=== PATIENT | female | born 1970 | race Caucasian/White ===

== ENCOUNTER 2016-07-17 06:38 | Emergency (ER) | payer MEDICARE ==
[2016-07-17] MEDS ORDERED: IPRATROPIUM-ALBUTEROL 3 ML NEB INHALATION STA (07:55)
[2016-07-17] MEDS ORDERED: SODIUM CHLORIDE 0.9% 1,000 ML IV STA (07:55)
[2016-07-17] MEDS ORDERED: SODIUM CHLORIDE 0.9% 500 ML IV STA (07:58)
--- NOTE | 2016-07-17 07:59 | ED ---
Fever HPI - General Chief Complaint: Fever Stated Complaint: fever Time Seen by Provider: 07/17/16 07:15 Source: patient, family, RN notes reviewed Mode of arrival: ambulatory Limitations: no limitations - History of Present Illness Initial Comments: This is a 46-year-old female with a history of being diagnosed with slight COPD and was currently being worked up for headaches with a pending evaluation of her carotid arteries at [facility] states she's had a cough with some congestion and fever over last week after his been as high as well 3 she had a cough with some slight yellow phlegm he also states she's had some left- sided rib pain. No overt abdominal pain nausea vomiting diarrhea she has had some rhinorrhea slight sore throat and some ear congestion. She also complains of intermittent headaches but that is part of what is being worked up at [facility]. She is a nonsmoker. Additionally her does not smoke but to their son's do smoke. Additionally her blood pressure has been somewhat elevated recently MD Complaint: fever, other - Related Data Home Medications Medication Instructions Recorded Confirmed HYDROcodone/APAP 7.5-325MG [[place] 1 tab PO QID PRN 04/18/14 07/17/16 7.5] Ondansetron HCl [Zofran] 4 mg PO Q8HR PRN 04/18/14 07/17/16 Ethosuximide [Zarontin] 250 mg PO BID 04/19/14 07/17/16 Cholecalciferol [Vitamin D3] 1,000 unit PO HS 10/14/14 07/17/16 Omeprazole 20 mg PO BID 12/14/15 07/17/16 Butalb/Acetaminophen/Caffeine 1 cap PO QID PRN 07/17/16 07/17/16 [Fioricet 50-300-40 mg Capsule] Ibuprofen [Motrin] 200 - 400 mg PO Q6H PRN 07/17/16 07/17/16 clonazePAM [KlonoPIN] 0.25 mg PO QAM 07/17/16 07/17/16 clonazePAM [KlonoPIN] 0.5 mg PO DAILY PRN 07/17/16 07/17/16 clonazePAM [KlonoPIN] 0.5 mg PO HS 07/17/16 07/17/16 diphenhydrAMINE HCL [Benadryl] 25 mg PO TID PRN 07/17/16 07/17/16 Previous Rx's Medication Instructions Recorded Nadolol [Corgard] 20 mg PO BID #60 tab 10/17/14 Azithromycin [Zithromax Z-pack] 250 mg PO DIRECTED #6 tab 07/17/16 Ipratropium/Albuterol Sulfate 2 puff INHALATION QID PRN #1 07/17/16 [Combivent Respimat Inhaler] inhaler Potassium Chloride ER [K-Dur 20] 20 meq PO DAILY #10 tab 07/17/16 Allergies Allergy/AdvReac Type Severity Reaction Status Date / Time amoxicillin [Amoxicillin] Allergy Unknown Verified 07/17/16 07:21 erythromycin base Allergy Unknown Verified 07/17/16 07:21 [Erythromycin Base] erythromycin lactobionate Allergy Unknown Verified 07/17/16 07:21 [From Erythrocin] Tetracyclines Allergy Unknown Verified 07/17/16 07:21 Review of Systems ROS Statement: Those systems with pertinent positive or pertinent negative responses have been documented in the HPI. ROS Other: All systems not noted in ROS Statement are negative. Past Medical History Past Medical History: CVA/TIA, Hypertension, Seizure Disorder Additional Past Medical History / Comment(s): Questionable history of mini strokes/TIA, frequent PVCs, gastritis and diverticulosis,small hiatal hernia, migraines, sinus problems, hx of siezures since age 8 yrs and last siezure was 3 weeks ago. History of Any Multi-Drug Resistant Organisms: None Reported Past Surgical History: Heart Catheterization, Hysterectomy Additional Past Surgical History / Comment(s): Pt had normal cardiac cath in 2011, upper and lower endoscopies Apr 2014 which showed diverticulosis and gastitis and small hiatal hernia Past Anesthesia/Blood Transfusion Reactions: Motion Sickness, Postoperative Nausea & Vomiting (PONV) Past Psychological History: No Psychological Hx Reported Additional Psychological History / Comment(s): Pt lives in her home with and 3 children. She currently uses crutches due to L foot fx and casting. she is mornally independent. Smoking Status: Never smoker Past Alcohol Use History: None Reported Past Drug Use History: None Reported - Past Family History Mother Family Medical History: Hypertension, Myocardial Infarction ([place]) Additional Family Medical History / Comment(s): Pt states she had two heart attacks, and is now Father Family Medical History: Unable to Obtain Additional Family Medical History / Comment(s): Pt did not know her father-she was raised by mother and stepfather. General Exam - General Exam Comments Initial Comments: This is a well-developed well-nourished awake alert oriented 3 female Limitations: no limitations General appearance: alert, in no apparent distress Head exam: Present: atraumatic, normocephalic, normal inspection Eye exam: Present: normal appearance, PERRL, EOMI. Absent: scleral icterus, conjunctival injection, periorbital swelling ENT exam: Present: mucous membranes dry, other (Suddenly dry oromucosa back memories appear to be within normal limits examine the nares reveals no drainage or discharge at this time.) Neck exam: Present: normal inspection. Absent: tenderness, meningismus, lymphadenopathy Respiratory exam: Present: wheezes, rhonchi (Left lower lobe rhonchi are noted.) , decreased breath sounds. Absent: chest wall tenderness Cardiovascular Exam: Present: regular rate, normal rhythm, normal heart sounds. Absent: systolic murmur, diastolic murmur, rubs, gallop, clicks GI/Abdominal exam: Present: soft, normal bowel sounds. Absent: distended, tenderness, guarding, rebound, rigid Extremities exam: Present: normal inspection, full ROM, normal capillary refill. Absent: tenderness, pedal edema, joint swelling, calf tenderness Back exam: Present: normal inspection Neurological exam: Present: alert, oriented X3, CN II-XII intact Psychiatric exam: Present: normal affect, normal mood Skin exam: Present: warm, dry, intact, normal color. Absent: rash Course Vital Signs 07/17/16 07/17/16 07/17/16 06:41 07:19 08:53 Temperature 98.6 F Pulse Rate 72 72 Respiratory 20 18 Rate Blood Pressure 168/105 O2 Sat by Pulse 97 Oximetry 07/17/16 07/17/16 09:05 09:50 Temperature 101.4 F H Pulse Rate 76 81 Respiratory 18 Rate Blood Pressure 148/78 O2 Sat by Pulse 97 Oximetry - Reevaluation(s) Reevaluation #1: 07/17/16 11:29 Of note I did a long discussion with the patient regarding ALLERGY she states she is not ALLERGIC to the medications listed however she was told to mention that she had a previous history of this she did have ALLERGY testing which showed no ALLERGIES. Medical Decision Making - Medical Decision Making I did reevaluate patient several occasions she was in improved and would like to go home. She'll be discharged on oral antibiotics as well as supplementation for potassium. She'll also get an inhaler she is a follow-up with her doctor and return when necessary - Lab Data Result diagrams: 07/17/16 08:45 07/17/16 08:45 Lab Results 07/17/16 07/17/16 07/17/16 Range/Units 08:45 08:45 08:45 WBC 6.0 (3.8-10.6) k/uL RBC 4.48 (3.80-5.40) m/uL Hgb 13.9 (11.4-16.0) gm/dL Hct 41.0 (34.0-46.0) % MCV 91.5 (80.0-100.0) fL MCH 31.1 (25.0-35.0) pg MCHC 34.0 (31.0-37.0) g/dL RDW 12.4 (11.5-15.5) % Plt Count 200 (150-450) k/uL Neutrophils % 83 % Lymphocytes % 11 % Monocytes % 3 % Eosinophils % 1 % Basophils % 0 % Neutrophils # 5.0 (1.3-7.7) k/uL Lymphocytes # 0.7 L (1.0-4.8) k/uL Monocytes # 0.2 (0-1.0) k/uL Eosinophils # 0.1 (0-0.7) k/uL Basophils # 0.0 (0-0.2) k/uL PT (9.0-12.0) sec INR (<1.1) APTT (22.0-30.0) sec Sodium 143 (137-145) mmol/L Potassium 3.1 L (3.5-5.1) mmol/L Chloride 102 (98-107) mmol/L Carbon Dioxide 29 (22-30) mmol/L Anion Gap 12 mmol/L BUN 6 L (7-17) mg/dL Creatinine 0.60 (0.52-1.04) mg/dL Est GFR (MDRD) Af Amer >60 (>60 ml/min/1.73 sqM) Est GFR (MDRD) Non-Af >60 (>60 ml/min/1.73 sqM) Glucose 89 (74-99) mg/dL Calcium 9.1 (8.4-10.2) mg/dL Magnesium 2.0 (1.6-2.3) mg/dL Total Bilirubin 0.4 (0.2-1.3) mg/dL AST 73 H (14-36) U/L ALT 73 H (9-52) U/L Alkaline Phosphatase 141 H (38-126) U/L Total Creatine Kinase (30-135) U/L CK-MB (CK-2) (0.0-2.4) ng/mL CK-MB (CK-2) Rel Index Troponin I (0.000-0.034) ng/mL NT-Pro-B Natriuret Pep 586 pg/mL Total Protein 7.1 (6.3-8.2) g/dL Albumin 4.2 (3.5-5.0) g/dL 07/17/16 07/17/16 07/17/16 Range/Units 08:45 08:45 08:45 WBC (3.8-10.6) k/uL RBC (3.80-5.40) m/uL Hgb (11.4-16.0) gm/dL Hct (34.0-46.0) % MCV (80.0-100.0) fL MCH (25.0-35.0) pg MCHC (31.0-37.0) g/dL RDW (11.5-15.5) % Plt Count (150-450) k/uL Neutrophils % % Lymphocytes % % Monocytes % % Eosinophils % % Basophils % % Neutrophils # (1.3-7.7) k/uL Lymphocytes # (1.0-4.8) k/uL Monocytes # (0-1.0) k/uL Eosinophils # (0-0.7) k/uL Basophils # (0-0.2) k/uL PT 10.3 (9.0-12.0) sec INR 1.0 (<1.1) APTT 24.1 (22.0-30.0) sec Sodium (137-145) mmol/L Potassium (3.5-5.1) mmol/L Chloride (98-107) mmol/L Carbon Dioxide (22-30) mmol/L Anion Gap mmol/L BUN (7-17) mg/dL Creatinine (0.52-1.04) mg/dL Est GFR (MDRD) Af Amer (>60 ml/min/1.73 sqM) Est GFR (MDRD) Non-Af (>60 ml/min/1.73 sqM) Glucose (74-99) mg/dL Calcium (8.4-10.2) mg/dL Magnesium (1.6-2.3) mg/dL Total Bilirubin (0.2-1.3) mg/dL AST (14-36) U/L ALT (9-52) U/L Alkaline Phosphatase (38-126) U/L Total Creatine Kinase 45 (30-135) U/L CK-MB (CK-2) 0.4 (0.0-2.4) ng/mL CK-MB (CK-2) Rel Index 0.9 Troponin I <0.012 (0.000-0.034) ng/mL NT-Pro-B Natriuret Pep pg/mL Total Protein (6.3-8.2) g/dL Albumin (3.5-5.0) g/dL - EKG Data -: EKG Interpreted by Sd EKG shows normal: sinus rhythm (Sinus rhythm with a short ID interval the ventricular rate was 69. Interval 110 QRS duration 82 QT/QTC of 14/[address] -T wave changes.) - Radiology Data Radiology results: report reviewed (Review the imaging did show evidence of a left lower lobe infiltrate.), image reviewed Disposition Clinical Impression: Left lower lobe pneumonia, Bronchospasm, Hypokalemia, Febrile illness Disposition: HOME SELF-CARE Condition: Good Instructions: Fever in Adults (ED), Pneumonia (ED), Bronchospasm (ED), Hypokalemia (ED) Prescriptions: Azithromycin [Zithromax Z-pack] 250 mg PO DIRECTED #6 tab Ipratropium/Albuterol Sulfate [Combivent Respimat Inhaler] 2 puff INHALATION QID PRN #1 inhaler PRN Reason: Dyspnea Potassium Chloride ER [K-Dur 20] 20 meq PO DAILY #10 tab
[2016-07-17 09:09] LABS: Basophils % (A) 0 %; CH 32.1; CHCM 35.2; Eosinophils # (A) 0.1 k/uL (0-0.7); Eosinophils % (A) 1 %; HDW 2.67; HGB 13.9 gm/dL (11.4-16.0); Luc % (Auto) 2; Lymphocytes # (A) 0.7 k/uL (1.0-4.8); Lymphocytes % (A) 11 %; MCH 31.1 pg (25.0-35.0); MCV 91.5 fL (80.0-100.0); Monocytes # (A) 0.2 k/uL (0-1.0); Monocytes % (A) 3 %; Neutrophils % (A) 83 %; RBC 4.48 m/uL (3.80-5.40); RDW 12.4 % (11.5-15.5); WBC (Perox) 6.27
[2016-07-17 09:19] LABS: ALT 73 U/L (9-52); AST 73 U/L (14-36); Alkaline Phosphatase 141 U/L (38-126); Anion Gap 12 mmol/L; Blood Urea Nitrogen 6 mg/dL (7-17); Calcium 9.1 mg/dL (8.4-10.2); Carbon Dioxide 29 mmol/L (22-30); Chloride 102 mmol/L (98-107); Glucose 89 mg/dL (74-99); Non-African American GFR(MDRD) >60 (>60 ml/min/1.73 sqM); Potassium 3.1 mmol/L (3.5-5.1); Sodium 143 mmol/L (137-145); Total Bilirubin 0.4 mg/dL (0.2-1.3); Total Protein 7.1 g/dL (6.3-8.2)
[2016-07-17 09:23] LABS: Partial Thromboplastin Time 24.1 sec (22.0-30.0); Prothrombin Time 10.3 sec (9.0-12.0)
--- NOTE | 2016-07-17 09:43 | XR ---
EXAMINATION TYPE: XR chest 2V DATE OF EXAM: 07/17/2016 9:32 AM COMPARISON: Prior chest x-ray first of October 2014 HISTORY: Difficulty breathing, upper respiratory difficulties TECHNIQUE: Frontal and lateral views of the chest are obtained. FINDINGS: Abnormal airspace disease present in the left lower lobe. No pneumothorax or pleural effus ion. Cardiac and mediastinal silhouette, pulmonary vascularity and nilesh are within normal limits. IMPRESSION: Left lower lobe pneumonia, follow up recommended.
[2016-07-17 10:15] LABS: Creatine Kinase MB 0.4 ng/mL (0.0-2.4)
[2016-07-17] MEDS ORDERED: KETOROLAC 30 MG/ML 1 ML VIAL IVP STA (10:40)
[2016-07-17] MEDS ORDERED: AZITHROMYCIN 500 MG TAB PO STA (10:40)
[2016-07-17] MEDS ORDERED: POTASSIUM CHLORIDE ER 20 MEQ TAB.ER PO STA (10:41)
[2016-07-17] MEDS ORDERED: ACETAMINOPHEN TAB 500 MG TAB PO STA (11:33)
[2016-07-17 11:48] VITALS: BP 146/86; PULSE 75; RESP 16; TEMP 102
== END 2016-07-17 11:48 | disposition home or self-care (01) ==
LOC: EC 06:38
DX: J18.9 Pneumonia, unspecified organism (principal); J98.01 Acute bronchospasm; E87.6 Hypokalemia; R51 Headache; I10 Essential (primary) hypertension; G40.909 Epilepsy, unspecified, not intractable, without status epilepticus; Z88.0 Allergy status to penicillin; Z88.1 Allergy status to other antibiotic agents; Z86.73 Personal history of transient ischemic attack (TIA), and cerebral infarction without residual deficits; Z98.61 Coronary angioplasty status; Z79.899 Other long term (current) drug therapy
CPT/HCPCS: 99284; 96365; 96375; 96361 ×2; 36415; 94640; 93005; 83880; 80053; 82550; 82553; 83735; 84484; 85025; 85610; 85730; 87040; 71020; J0696; J1885

== ENCOUNTER 2017-03-01 11:36 | Emergency (ER) | payer MEDICARE ==
[2017-03-01] MEDS ORDERED: HYDROmorphone 1 MG/ML 1 ML SYRINGE IM STA (12:01)
--- NOTE | 2017-03-01 12:18 | XR ---
EXAMINATION TYPE: PA chest and right rib series DATE OF EXAM: 03/01/2017 COMPARISON: 07/17/2016 HISTORY: 46-year-old female with right rib pain after fall FINDINGS: Heart is normal size. Aorta and pulmonary vasculature within normal limits. Lungs and pleural spaces are clear. No displaced right rib fracture. IMPRESSION: No acute cardiopulmonary process or displaced right rib fracture.
--- NOTE | 2017-03-01 12:21 | ED ---
General Adult HPI - General Chief complaint: Fall Stated complaint: fall down stairs Time Seen by Provider: 03/01/17 11:53 Source: patient, RN notes reviewed Mode of arrival: ambulatory Limitations: no limitations - History of Present Illness Initial comments: 46-year-old female presents to the emergency department presents with chief complaint of right-sided rib pain. Patient states that she fell on the stairs about 4 stairs few nights ago after being sick with nausea vomiting she felt a little weak and she filled on the stairs. Patient states that she was doing okay she's had some soreness to the right side of the ribs however today after pain onset yesterday she's noticed some increased pain and right-sided rib so she thought that she should be seen. Patient denies any abdominal pain any nausea or vomiting. Patient states did not hit her head she did not pass out during this period. Patient denies any recent fever, chills, shortness of breath , back pain, abdominal pain, nausea vomiting, numbness or tingling, dysuria or hematuria, constipation or diarrhea, headaches or visual changes, or any other current symptoms. - Related Data Home Medications Medication Instructions Recorded Confirmed HYDROcodone/APAP 7.5-325MG [[place] 1 tab PO QID PRN 04/18/14 07/17/16 7.5] Ondansetron HCl [Zofran] 4 mg PO Q8HR PRN 04/18/14 07/17/16 Ethosuximide [Zarontin] 250 mg PO BID 04/19/14 07/17/16 Cholecalciferol [Vitamin D3] 1,000 unit PO HS 10/14/14 07/17/16 Omeprazole 20 mg PO BID 12/14/15 07/17/16 Butalb/Acetaminophen/Caffeine 1 cap PO QID PRN 07/17/16 07/17/16 [Fioricet 50-300-40 mg Capsule] Ibuprofen [Motrin] 200 - 400 mg PO Q6H PRN 07/17/16 07/17/16 clonazePAM [KlonoPIN] 0.25 mg PO QAM 07/17/16 07/17/16 clonazePAM [KlonoPIN] 0.5 mg PO DAILY PRN 07/17/16 07/17/16 clonazePAM [KlonoPIN] 0.5 mg PO HS 07/17/16 07/17/16 diphenhydrAMINE HCL [Benadryl] 25 mg PO TID PRN 07/17/16 07/17/16 Previous Rx's Medication Instructions Recorded Nadolol [Corgard] 20 mg PO BID #60 tab 10/17/14 Azithromycin [Zithromax Z-pack] 250 mg PO DIRECTED #6 tab 07/17/16 Ipratropium/Albuterol Sulfate 2 puff INHALATION QID PRN #1 07/17/16 [Combivent Respimat Inhaler] inhaler Potassium Chloride ER [K-Dur 20] 20 meq PO DAILY #10 tab 07/17/16 Allergies Allergy/AdvReac Type Severity Reaction Status Date / Time amoxicillin [Amoxicillin] Allergy Unknown Verified 03/01/17 11:45 erythromycin base Allergy Unknown Verified 03/01/17 11:45 [Erythromycin Base] erythromycin lactobionate Allergy Unknown Verified 03/01/17 11:45 [From Erythrocin] Tetracyclines Allergy Unknown Verified 03/01/17 11:45 Review of Systems ROS Statement: Those systems with pertinent positive or pertinent negative responses have been documented in the HPI. ROS Other: All systems not noted in ROS Statement are negative. Past Medical History Past Medical History: CVA/TIA, Hypertension, Seizure Disorder Additional Past Medical History / Comment(s): Questionable history of mini strokes/TIA, frequent PVCs, gastritis and diverticulosis,small hiatal hernia, migraines, sinus problems, hx of siezures since age 8 yrs and last siezure was 3 weeks ago. History of Any Multi-Drug Resistant Organisms: None Reported Past Surgical History: Heart Catheterization, Hysterectomy Additional Past Surgical History / Comment(s): Pt had normal cardiac cath in 2011, upper and lower endoscopies Apr 2014 which showed diverticulosis and gastitis and small hiatal hernia Past Anesthesia/Blood Transfusion Reactions: Motion Sickness, Postoperative Nausea & Vomiting (PONV) Past Psychological History: No Psychological Hx Reported Smoking Status: Never smoker Past Alcohol Use History: None Reported Past Drug Use History: None Reported - Past Family History Mother Family Medical History: Hypertension, Myocardial Infarction ([place]) Additional Family Medical History / Comment(s): Pt states she had two heart attacks, and is now Father Family Medical History: Unable to Obtain Additional Family Medical History / Comment(s): Pt did not know her father-she was raised by mother and stepfather. General Exam Limitations: no limitations General appearance: alert, in no apparent distress Head exam: Present: atraumatic, normocephalic, normal inspection Eye exam: Present: normal appearance, PERRL, EOMI. Absent: scleral icterus, conjunctival injection, periorbital swelling ENT exam: Present: normal exam, mucous membranes moist Neck exam: Present: normal inspection. Absent: tenderness, meningismus, lymphadenopathy Respiratory exam: Present: normal lung sounds bilaterally, chest wall tenderness (over the right lower rib cage to the back.). Absent: respiratory distress, wheezes, rales, rhonchi, stridor Cardiovascular Exam: Present: regular rate, normal rhythm, normal heart sounds. Absent: systolic murmur, diastolic murmur, rubs, gallop, clicks Extremities exam: Present: normal inspection, full ROM, normal capillary refill. Absent: tenderness, pedal edema, joint swelling, calf tenderness Back exam: Present: normal inspection Neurological exam: Present: alert, oriented X3 Psychiatric exam: Present: normal affect, normal mood Skin exam: Present: warm, dry, intact, normal color. Absent: rash Course Vital Signs 03/01/17 03/01/17 11:42 12:26 Temperature 99.9 F H 99 F Pulse Rate 70 63 Respiratory 20 18 Rate Blood Pressure 173/105 159/96 O2 Sat by Pulse 100 96 Oximetry Medical Decision Making - Medical Decision Making 46-year-old female presents to the emergency department with a chief complaint of right-sided rib pain after a fall. xray is reviewed and negative. At this time we did discuss that most likely from the fall she developed a rib contusion and then yesterday but she was pain her house she worsens it. We discussed care of this. We did discuss return parameters and follow-up. We did discussed all the patient's questions. He stated the Alli they are given plan. This time they will be discharged - Radiology Data Radiology results: report reviewed, image reviewed Disposition Clinical Impression: Contusion of rib on right side Disposition: HOME SELF-CARE Condition: Stable Instructions: Rib Contusion (ED) Additional Instructions: Please use medication as discussed. Please follow up with family doctor if symptoms have not improved over the next two days. Please return to the emergency room if your symptoms increase or worsen or for any other concerns. Referrals: Young Palmer MD [Primary Care Provider] - 1-2 days Time of Disposition: 12:39
[2017-03-01 12:27] VITALS: BP 159/96; PULSE 63; RESP 18; TEMP 99
== END 2017-03-01 12:50 | disposition home or self-care (01) ==
LOC: EC 11:36
DX: S20.211A Contusion of right front wall of thorax, initial encounter (principal); R11.2 Nausea with vomiting, unspecified; I10 Essential (primary) hypertension; G40.909 Epilepsy, unspecified, not intractable, without status epilepticus; Z86.73 Personal history of transient ischemic attack (TIA), and cerebral infarction without residual deficits; Z79.899 Other long term (current) drug therapy; Z88.1 Allergy status to other antibiotic agents; Z88.0 Allergy status to penicillin; W10.9XXA Fall (on) (from) unspecified stairs and steps, initial encounter
CPT/HCPCS: 71101; 99283; 96372; J1170

== ENCOUNTER 2017-08-16 10:54 | Emergency (ER) | payer MEDICARE, OTHER ==
[2017-08-16] MEDS ORDERED: KETOROLAC 30 MG/ML 1 ML VIAL IVP STA (11:30)
--- NOTE | 2017-08-16 11:36 | ED ---
General Adult HPI - General Chief complaint: Upper Respiratory Infection Stated complaint: Cough/SOB Time Seen by Provider: 08/16/17 11:20 Source: patient, family Mode of arrival: wheelchair Limitations: no limitations - History of Present Illness Initial comments: This is a 47 year old female who presents emergency department for right sided flank pain that radiates around to the right anterior chest. She states it started 3 or 4 days ago but is gradually worsened. She states that she has been coughing with this. She states that she has a history of pneumonia and feels similar. She states that she also has been having difficulty with eating recently that she attributes to a recent medication change. She states that she 's also had a couple episodes of syncope which is also typical for her when she is been sick. She's been around multiple sick contacts including a grand child. She denies any fevers or chills at home. No upper respiratory symptoms. She does state that she's had a couple episodes of emesis after coughing. No diarrhea. No abdominal pain. No other complaints. - Related Data Home Medications Medication Instructions Recorded Confirmed HYDROcodone/APAP 7.5-325MG [[place] 1 tab PO Q6H PRN 04/18/14 08/16/17 7.5] Ethosuximide [Zarontin] 250 mg PO TID 04/19/14 08/16/17 Cholecalciferol [Vitamin D3] 1,000 unit PO HS 10/14/14 08/16/17 Omeprazole 20 mg PO DAILY 12/14/15 08/16/17 Butalb/Acetaminophen/Caffeine 1 cap PO Q4H PRN 07/17/16 08/16/17 [Fioricet 50-300-40 mg Capsule] Ibuprofen [Motrin] 200 - 400 mg PO Q6H PRN 07/17/16 08/16/17 clonazePAM [KlonoPIN] 0.5 mg PO BID 07/17/16 08/16/17 diphenhydrAMINE HCL [Benadryl] 25 mg PO TID PRN 07/17/16 08/16/17 Ipratropium/Albuterol Sulfate 2 puff INHALATION RT-QID PRN 03/01/17 08/16/17 [Combivent Respimat Inhaler] Labetalol [Trandate] 100 mg PO BID 08/16/17 08/16/17 Previous Rx's Medication Instructions Recorded Methocarbamol [Robaxin] 1,000 mg PO QID PRN #16 tab 08/16/17 Naproxen [EC-Naprosyn] 500 mg PO BID #30 tablet. 08/16/17 Allergies Allergy/AdvReac Type Severity Reaction Status Date / Time amoxicillin [Amoxicillin] Allergy Rash/Hives Verified 08/16/17 12:00 erythromycin base Allergy Rash/Hives Verified 08/16/17 12:00 [Erythromycin Base] erythromycin lactobionate Allergy Rash/Hives Verified 08/16/17 12:00 [From Erythrocin] Tetracyclines Allergy Rash/Hives Verified 08/16/17 12:00 Review of Systems ROS Statement: Those systems with pertinent positive or pertinent negative responses have been documented in the HPI. ROS Other: All systems not noted in ROS Statement are negative. Past Medical History Past Medical History: CVA/TIA, Hypertension, Pneumonia, Seizure Disorder Additional Past Medical History / Comment(s): Questionable history of mini strokes/TIA, frequent PVCs, gastritis and diverticulosis,small hiatal hernia, migraines, sinus problems, hx of siezures since age 8 yrs and last siezure was 3 weeks ago. History of Any Multi-Drug Resistant Organisms: None Reported Past Surgical History: Heart Catheterization, Hysterectomy Additional Past Surgical History / Comment(s): Pt had normal cardiac cath in 2011, upper and lower endoscopies Apr 2014 which showed diverticulosis and gastitis and small hiatal hernia Past Anesthesia/Blood Transfusion Reactions: Motion Sickness, Postoperative Nausea & Vomiting (PONV) Past Psychological History: No Psychological Hx Reported Smoking Status: Never smoker Past Alcohol Use History: None Reported Past Drug Use History: None Reported - Past Family History Mother Family Medical History: Hypertension, Myocardial Infarction ([place]) Additional Family Medical History / Comment(s): Pt states she had two heart attacks, and is now Father Family Medical History: Unable to Obtain Additional Family Medical History / Comment(s): Pt did not know her father-she was raised by mother and stepfather. General Exam - General Exam Comments Initial Comments: Constitutional: Awake alert Appears comfortable Head: Normocephalic atraumatic Eyes: no conjunctival injection No scleral icterus EOMI ENT: Oropharynx is nonerythematous, TMs clear bilaterally, no rhinorrhea Neck: No JVD Supple Heart: Regular rate rhythm normal S1-S2 no murmurs Lungs: Clear to auscultation bilaterally No wheezing No rales, tenderness to palpation along the right lateral lower ribs Abdomen: Soft nondistended nontender Extremities: Non edematous DP pulses intact Radial pulses intact Neuro: A&Ox3 No focal neurologic deficits Psych: Appropriate mood and affect Limitations: no limitations Course Vital Signs 08/16/17 08/16/17 11:04 11:58 Temperature 98.7 F Pulse Rate 79 Respiratory 18 16 Rate Blood Pressure 175/97 O2 Sat by Pulse 100 Oximetry EKG Findings - EKG Comments: EKG Findings:: EKG showing normal sinus rhythm. 624. No abnormal ST segment changes. There are T-wave inversions in the lateral leads and inferior leads which are unchanged from previous. QTC is 429. Other intervals are normal. Medical Decision Making - Medical Decision Making Is a 47-year-old female who presents emergency department for right-sided chest wall pain. The patient was improved after some Toradol. Chest x-ray did not reveal any pneumonia. Labwork was unremarkable. EKG was unchanged from previous. This time I feel the patient is okay to go home. Told to take Naprosyn and muscle relaxants per she can use numbing patches if she would like. Told to return emergency Department should her like fever, worsening pain , cough productive of sputum. Otherwise she needs to follow-up the primary doctor. All questions were answered. - Lab Data Result diagrams: 08/16/17 12:08/16/17 12: Lab Results 08/16/17 08/16/17 08/16/17 Range/Units 12: 12: 12: WBC 3.4 L (3.8-10.6) k/uL RBC 4.11 (3.80-5.40) m/uL Hgb 12.8 (11.4-16.0) gm/dL Hct 37.9 (34.0-46.0) % MCV 92.2 (80.0-100.0) fL MCH 31.1 (25.0-35.0) pg MCHC 33.7 (31.0-37.0) g/dL RDW 12.8 (11.5-15.5) % Plt Count 209 (150-450) k/uL Neutrophils % 45 % Lymphocytes % 45 % Monocytes % 5 % Eosinophils % 3 % Basophils % 1 % Neutrophils # 1.5 (1.3-7.7) k/uL Lymphocytes # 1.5 (1.0-4.8) k/uL Monocytes # 0.2 (0-1.0) k/uL Eosinophils # 0.1 (0-0.7) k/uL Basophils # 0.0 (0-0.2) k/uL Sodium 141 (137-145) mmol/L Potassium 3.5 (3.5-5.1) mmol/L Chloride 105 (98-107) mmol/L Carbon Dioxide 24 (22-30) mmol/L Anion Gap 12 mmol/L BUN 7 (7-17) mg/dL Creatinine 0.62 (0.52-1.04) mg/dL Est GFR (MDRD) Af Amer >60 (>60 ml/min/1.73 sqM) Est GFR (MDRD) Non-Af >60 (>60 ml/min/1.73 sqM) Glucose 91 (74-99) mg/dL Calcium 9.8 (8.4-10.2) mg/dL Total Bilirubin 0.3 (0.2-1.3) mg/dL AST 15 (14-36) U/L ALT 18 (9-52) U/L Alkaline Phosphatase 61 (38-126) U/L Total Protein 7.3 (6.3-8.2) g/dL Albumin 4.5 (3.5-5.0) g/dL Urine HCG, Qual Not Detected (Not Detectd) Disposition Clinical Impression: Chest wall pain Disposition: HOME SELF-CARE Condition: Stable Instructions: Costochondritis (ED) Prescriptions: Methocarbamol [Robaxin] 1,000 mg PO QID PRN #16 tab PRN Reason: Muscle Pain/Spasm Naproxen [EC-Naprosyn] 500 mg PO BID #30 tablet.dr Referrals: Young Palmer MD [Primary Care Provider] - 1-2 days
[2017-08-16 12:25] LABS: Basophils % (A) 1 %; Eosinophils # (A) 0.1 k/uL (0-0.7); Eosinophils % (A) 3 %; HCT 37.9 % (34.0-46.0); HGB 12.8 gm/dL (11.4-16.0); Lymphocytes # (A) 1.5 k/uL (1.0-4.8); Lymphocytes % (A) 45 %; MCH 31.1 pg (25.0-35.0); MCHC 33.7 g/dL (31.0-37.0); MCV 92.2 fL (80.0-100.0); Mean Platelet Volume 7.7; Monocytes # (A) 0.2 k/uL (0-1.0); Monocytes % (A) 5 %; Neutrophils # (A) 1.5 k/uL (1.3-7.7); Neutrophils % (A) 45 %; Platelet Count 209 k/uL (150-450); RBC 4.11 m/uL (3.80-5.40); RDW 12.8 % (11.5-15.5); WBC 3.4 k/uL (3.8-10.6)
--- NOTE | 2017-08-16 12:25 | XR ---
EXAMINATION TYPE: XR chest 2V DATE OF EXAM: 08/16/2017 COMPARISON: 05/10/2017 HISTORY: 47-year-old female with pain TECHNIQUE: AP and lateral views FINDINGS: The cardiomediastinal silhouette, aorta, and pulmonary vasculature are within normal limits. Lungs an d pleural spaces are clear. IMPRESSION: No acute cardiopulmonary process.
[2017-08-16 12:32] LABS: ALT 18 U/L (9-52); AST 15 U/L (14-36); Albumin 4.5 g/dL (3.5-5.0); Alkaline Phosphatase 61 U/L (38-126); Anion Gap 12 mmol/L; Blood Urea Nitrogen 7 mg/dL (7-17); Calcium 9.8 mg/dL (8.4-10.2); Carbon Dioxide 24 mmol/L (22-30); Chloride 105 mmol/L (98-107); Glucose 91 mg/dL (74-99); Potassium 3.5 mmol/L (3.5-5.1); Sodium 141 mmol/L (137-145); Total Bilirubin 0.3 mg/dL (0.2-1.3); Total Protein 7.3 g/dL (6.3-8.2)
[2017-08-16 13:04] VITALS: BP 171/69; PULSE 78; RESP 18; TEMP 97.8
== END 2017-08-16 13:04 | disposition home or self-care (01) ==
LOC: EC 10:54
DX: R07.89 Other chest pain (principal); R10.9 Unspecified abdominal pain; R05 Cough; R55 Syncope and collapse; R11.10 Vomiting, unspecified; I10 Essential (primary) hypertension; G40.909 Epilepsy, unspecified, not intractable, without status epilepticus; Z79.899 Other long term (current) drug therapy; Z88.0 Allergy status to penicillin; Z88.1 Allergy status to other antibiotic agents; Z87.19 Personal history of other diseases of the digestive system; Z95.9 Presence of cardiac and vascular implant and graft, unspecified; Z82.49 Family history of ischemic heart disease and other diseases of the circulatory system; Z20.89 Contact with and (suspected) exposure to other communicable diseases
CPT/HCPCS: 36415; 93005; 80053; 85025; 81025; 71046; 99284; 96374; J1885

== ENCOUNTER 2017-09-20 12:31 | Emergency (ER) | payer MEDICARE, OTHER ==
[2017-09-20] MEDS ORDERED: SODIUM CHLORIDE 0.9% 500 ML IV STA (12:49)
[2017-09-20] MEDS ORDERED: SODIUM CHLORIDE 0.9% 1,000 ML IV STA (12:49)
[2017-09-20] MEDS ORDERED: METOCLOPRAMIDE 5 MG/ML 2 ML VIAL IVP STA (12:51)
[2017-09-20] MEDS ORDERED: LABETALOL 5 MG/ML VIAL MDV IVP STA (12:51)
[2017-09-20] MEDS ORDERED: KETOROLAC 30 MG/ML 1 ML VIAL IVP STA (12:51)
[2017-09-20] MEDS ORDERED: DEXAMETHASONE SOD PHOSPHATE 10 MG/ML 1 ML VIAL IV STA (12:51)
--- NOTE | 2017-09-20 12:56 | ED ---
General Adult HPI - General Chief complaint: Head Injury Stated complaint: Headache from seizure Time Seen by Provider: 09/20/17 12:42 Source: patient Mode of arrival: wheelchair Limitations: no limitations - History of Present Illness Initial comments: This 47-year-old white female presents with a complaint of a head injury. She states that she had a seizure exactly one month ago, fell, and hit her left occipital region. She states that she has had a continuous headache and her left occipital region ever since. She has had some nausea and vomiting. She's felt dizzy at times as well. His symptoms have been fairly persistent over the last month. She did not follow up with anybody until now as they were having insurance difficulties. She also complains of occasional shortness of breath and states that her blood pressures been out of control. She normally runs approximately 135/95 but recently has been running approximately 190 systolic. She does take blood pressure medication and states that she'll sometimes double up on her dose per her doctor's recommendations and this will usually help. She denies any other injuries. She does relate that the pain seems to radiate down into her neck at times. She has no other complaints or modifying factors. - Related Data Home Medications Medication Instructions Recorded Confirmed HYDROcodone/APAP 7.5-325MG [[place] 1 tab PO Q6H PRN 04/18/14 09/20/17 7.5] Ethosuximide [Zarontin] 250 mg PO BID 04/19/14 09/20/17 Omeprazole 20 mg PO AC-BID 12/14/15 09/20/17 Butalb/Acetaminophen/Caffeine 1 cap PO QID PRN 07/17/16 09/20/17 [Fioricet 50-300-40 mg Capsule] Ibuprofen [Motrin] 200 - 400 mg PO Q6H PRN 07/17/16 09/20/17 clonazePAM [KlonoPIN] 0.5 mg PO BID 07/17/16 09/20/17 diphenhydrAMINE HCL [Benadryl] 25 mg PO TID PRN 07/17/16 09/20/17 Nadolol [Corgard] 20 mg PO DAILY 09/20/17 09/20/17 Ondansetron HCl [Zofran] 4 mg PO Q8H PRN 09/20/17 09/20/17 Previous Rx's Medication Instructions Recorded Meclizine [Antivert] 25 mg PO TID PRN #20 tab 09/20/17 Nadolol [Corgard] 40 mg PO BID #60 tab 09/20/17 Allergies Allergy/AdvReac Type Severity Reaction Status Date / Time amoxicillin [Amoxicillin] Allergy Rash/Hives Verified 09/20/17 14:50 erythromycin base Allergy Rash/Hives Verified 09/20/17 14:50 [Erythromycin Base] erythromycin lactobionate Allergy Rash/Hives Verified 09/20/17 14:50 [From Erythrocin] Tetracyclines Allergy Rash/Hives Verified 09/20/17 14:50 Review of Systems ROS Statement: Those systems with pertinent positive or pertinent negative responses have been documented in the HPI. ROS Other: All systems not noted in ROS Statement are negative. Past Medical History Past Medical History: CVA/TIA, Hypertension, Pneumonia, Seizure Disorder Additional Past Medical History / Comment(s): Questionable history of mini strokes/TIA, frequent PVCs, gastritis and diverticulosis,small hiatal hernia, migraines, sinus problems, hx of siezures since age 8 yrs and last siezure was 3 weeks ago. History of Any Multi-Drug Resistant Organisms: None Reported Past Surgical History: Heart Catheterization, Hysterectomy Additional Past Surgical History / Comment(s): Pt had normal cardiac cath in 2011, upper and lower endoscopies Apr 2014 which showed diverticulosis and gastitis and small hiatal hernia Past Anesthesia/Blood Transfusion Reactions: Motion Sickness, Postoperative Nausea & Vomiting (PONV) Past Psychological History: No Psychological Hx Reported Smoking Status: Never smoker Past Alcohol Use History: None Reported Past Drug Use History: None Reported - Past Family History Mother Family Medical History: Hypertension, Myocardial Infarction ([place]) Additional Family Medical History / Comment(s): Pt states she had two heart attacks, and is now Father Family Medical History: Unable to Obtain Additional Family Medical History / Comment(s): Pt did not know her father-she was raised by mother and stepfather. General Exam - General Exam Comments Initial Comments: GENERAL: The patient is well nourished and well hydrated. VITAL SIGNS: Heart rate, blood pressure, respiratory rate reviewed as recorded in nurse's notes. EYES: Pupils are round and reactive. Extraocular movements are intact. No conjunctival / lid redness or swelling. ENT: No external evidence of injury, swelling, or ecchymosis. Airway is patent. Throat is clear. There is some slight tenderness noted to the left occipital region. NECK: Nontender. No swelling or evidence of injury. No subcutaneous emphysema. Trachea is midline. No thyroid mass. HEART: Regular rate and rhythm. Good peripheral pulses. LUNGS/CHEST: Breath sounds clear and equal bilaterally. No rales, rhonchi, or wheezes. No ecchymosis, subcutaneous emphysema, or tenderness. ABDOMEN: Abdomen soft without tenderness. No palpable masses or organomegaly. No peritoneal signs. No abdominal wall swelling or ecchymosis. EXTREMITIES: No extremity tenderness. Normal muscle tone and function. No thoracolumbar tenderness. NEUROLOGIC: Sensation is grossly intact. Cranial nerve exam reveals face is symmetrical, tongue is midline, speech is clear. SKIN: No abrasions or ecchymosis is noted. No induration or masses noted. PSYCHIATRIC: Alert and oriented. Appropriate behavior and judgment. Limitations: no limitations Course Vital Signs 09/20/17 09/20/17 09/20/17 12:37 13:23 14:29 Temperature 97.9 F Pulse Rate 71 69 63 Respiratory 18 18 16 Rate Blood Pressure 198/117 180/11 150/88 O2 Sat by Pulse 100 96 96 Oximetry Medical Decision Making - Medical Decision Making The patient is seen and examined. All diagnostics are reviewed. An IV is established and she does receive 20 mg of labetalol intravenously. She also receives some Toradol, dexamethasone, and Reglan for the headache. The EKG shows a normal sinus rhythm at a rate of 70. There is some nonspecific ST-T wave changes noted primarily in the inferolateral leads. The HI intervals 124, castration is 88, and the QTC intervals 466. There is reviewed and is unremarkable. The computed tomography scan of the brain does not show any acute processes. The chest x-ray is essentially within normal limits. The laboratories unremarkable. The exact cause of her symptomatology is not definitively determined. The blood pressure did come down nicely with labetalol. She states that she currently is taking Corgard 20 mg twice a day. It is felt as though this could be doubled for better control of her blood pressure as it has been running very high recently. It is felt as though she potentially could have a postconcussive syndrome. She does have plenty of Zofran at home as needed for nausea. She also will be prescribed some Antivert for the dizziness. She will follow up with her technology teacher for the blood pressure issues and her neurologist out of [facility] for her headaches, seizures, and postconcussive syndrome. Return parameters are discussed. - Lab Data Result diagrams: 09/20/17 13:10 09/20/17 13:10 Lab Results 09/20/17 09/20/17 09/20/17 Range/Units 13:10 13:10 13:10 WBC 4.3 (3.8-10.6) k/uL RBC 4.16 (3.80-5.40) m/uL Hgb 13.2 (11.4-16.0) gm/dL Hct 36.8 (34.0-46.0) % MCV 88.5 (80.0-100.0) fL MCH 31.8 (25.0-35.0) pg MCHC 35.9 (31.0-37.0) g/dL RDW 12.2 (11.5-15.5) % Plt Count 196 (150-450) k/uL Neutrophils % 48 % Lymphocytes % 43 % Monocytes % 6 % Eosinophils % 1 % Basophils % 1 % Neutrophils # 2.1 (1.3-7.7) k/uL Lymphocytes # 1.8 (1.0-4.8) k/uL Monocytes # 0.2 (0-1.0) k/uL Eosinophils # 0.1 (0-0.7) k/uL Basophils # 0.0 (0-0.2) k/uL PT (9.0-12.0) sec INR (<1.2) APTT (22.0-30.0) sec Sodium 138 (137-145) mmol/L Potassium 4.5 (3.5-5.1) mmol/L Chloride 103 (98-107) mmol/L Carbon Dioxide 25 (22-30) mmol/L Anion Gap 10 mmol/L BUN 6 L (7-17) mg/dL Creatinine 0.61 (0.52-1.04) mg/dL Est GFR (CKD-EPI)AfAm >90 (>60 ml/min/1.73 sqM) Est GFR (CKD-EPI)NonAf >90 (>60 ml/min/1.73 sqM) Glucose 99 (74-99) mg/dL Calcium 9.3 (8.4-10.2) mg/dL Total Bilirubin 0.6 (0.2-1.3) mg/dL AST 22 (14-36) U/L ALT 18 (9-52) U/L Alkaline Phosphatase 44 (38-126) U/L Total Creatine Kinase 42 (30-135) U/L CK-MB (CK-2) <0.2 (0.0-2.4) ng/mL CK-MB (CK-2) Rel Index Troponin I <0.012 (0.000-0.034) ng/mL Total Protein 6.9 (6.3-8.2) g/dL Albumin 4.1 (3.5-5.0) g/dL 09/20/17 Range/Units 13:10 WBC (3.8-10.6) k/uL RBC (3.80-5.40) m/uL Hgb (11.4-16.0) gm/dL Hct (34.0-46.0) % MCV (80.0-100.0) fL MCH (25.0-35.0) pg MCHC (31.0-37.0) g/dL RDW (11.5-15.5) % Plt Count (150-450) k/uL Neutrophils % % Lymphocytes % % Monocytes % % Eosinophils % % Basophils % % Neutrophils # (1.3-7.7) k/uL Lymphocytes # (1.0-4.8) k/uL Monocytes # (0-1.0) k/uL Eosinophils # (0-0.7) k/uL Basophils # (0-0.2) k/uL PT 10.4 (9.0-12.0) sec INR 1.1 (<1.2) APTT 20.7 L (22.0-30.0) sec Sodium (137-145) mmol/L Potassium (3.5-5.1) mmol/L Chloride (98-107) mmol/L Carbon Dioxide (22-30) mmol/L Anion Gap mmol/L BUN (7-17) mg/dL Creatinine (0.52-1.04) mg/dL Est GFR (CKD-EPI)AfAm (>60 ml/min/1.73 sqM) Est GFR (CKD-EPI)NonAf (>60 ml/min/1.73 sqM) Glucose (74-99) mg/dL Calcium (8.4-10.2) mg/dL Total Bilirubin (0.2-1.3) mg/dL AST (14-36) U/L ALT (9-52) U/L Alkaline Phosphatase (38-126) U/L Total Creatine Kinase (30-135) U/L CK-MB (CK-2) (0.0-2.4) ng/mL CK-MB (CK-2) Rel Index Troponin I (0.000-0.034) ng/mL Total Protein (6.3-8.2) g/dL Albumin (3.5-5.0) g/dL Disposition Clinical Impression: Closed head injury, Hypertension, Nausea and vomiting, Dizziness, Post concussion syndrome Disposition: HOME SELF-CARE Condition: Good Instructions: Hypertension (ED), Dizziness (ED), Post Concussion Syndrome (ED) , General Headache (ED), Head Injury (ED), Acute Nausea and Vomiting (ED) Additional Instructions: Please take your Zofran as needed for nausea. Please take your Fioricet as needed for headache. Please take the Antivert as needed for dizziness. Please stop her current Corgard medication and take the new prescription. Please keep a blood pressure log daily and follow up with your technology teacher in regard to your blood pressure this next week. Please follow-up with your neurologist as soon as possible. Prescriptions: Meclizine [Antivert] 25 mg PO TID PRN #20 tab PRN Reason: Vertigo Nadolol [Corgard] 40 mg PO BID #60 tab Referrals: Young Palmer MD [Primary Care Provider] - 1-2 days Time of Disposition: 14:59
[2017-09-20 13:30] LABS: Basophils % (A) 1 %; Eosinophils # (A) 0.1 k/uL (0-0.7); Eosinophils % (A) 1 %; HCT 36.8 % (34.0-46.0); HGB 13.2 gm/dL (11.4-16.0); Lymphocytes # (A) 1.8 k/uL (1.0-4.8); Lymphocytes % (A) 43 %; MCH 31.8 pg (25.0-35.0); MCHC 35.9 g/dL (31.0-37.0); MCV 88.5 fL (80.0-100.0); Mean Platelet Volume 8.6; Monocytes # (A) 0.2 k/uL (0-1.0); Monocytes % (A) 6 %; Neutrophils # (A) 2.1 k/uL (1.3-7.7); Neutrophils % (A) 48 %; Platelet Count 196 k/uL (150-450); RBC 4.16 m/uL (3.80-5.40); RDW 12.2 % (11.5-15.5); WBC 4.3 k/uL (3.8-10.6)
[2017-09-20 13:42] LABS: Anion Gap 10 mmol/L; Calcium 9.3 mg/dL (8.4-10.2); Carbon Dioxide 25 mmol/L (22-30); Chloride 103 mmol/L (98-107); Glucose 99 mg/dL (74-99); Sodium 138 mmol/L (137-145); Total Bilirubin 0.6 mg/dL (0.2-1.3)
[2017-09-20 13:43] LABS: Creatine Kinase 42 U/L (30-135)
[2017-09-20 13:45] LABS: INR 1.1 (<1.2); Prothrombin Time 10.4 sec (9.0-12.0)
[2017-09-20 13:47] LABS: ALT 18 U/L (9-52); AST 22 U/L (14-36); Albumin 4.1 g/dL (3.5-5.0); Alkaline Phosphatase 44 U/L (38-126); Blood Urea Nitrogen 6 mg/dL (7-17); Potassium 4.5 mmol/L (3.5-5.1); Total Protein 6.9 g/dL (6.3-8.2)
[2017-09-20 13:48] LABS: Partial Thromboplastin Time 20.7 sec (22.0-30.0)
[2017-09-20 13:56] LABS: Creatine Kinase MB <0.2 ng/mL (0.0-2.4); Troponin I <0.012 ng/mL (0.000-0.034)
--- NOTE | 2017-09-20 14:24 | CT ---
EXAMINATION TYPE: CT brain wo con DATE OF EXAM: 09/20/2017 COMPARISON: Prior CT brain 05/10/2017 HISTORY: Seizure, headache CT DLP: 945.5 mGycm. Automated Exposure Control for Dose Reduction was Utilized. TECHNIQUE: CT scan of the head is performed without contrast. FINDINGS: There is no acute intracranial hemorrhage, mass effect, or midline shift identified. The ventricles and sulci are within normal limits in size. The globes are intact and the visualized sin uses are remarkable for some mild inflammatory change in the ethmoid air cells, mastoids are well aer ated. IMPRESSION: No acute intracranial hemorrhage, mass effect, or midline shift is seen.
[2017-09-20 14:30] VITALS: RESP 16
--- NOTE | 2017-09-20 14:32 | XR ---
EXAMINATION TYPE: XR chest 2V DATE OF EXAM: 09/20/2017 COMPARISON: Prior chest x-ray 08/16/2017 HISTORY: Weakness, seizure and fall TECHNIQUE: Frontal and lateral views of the chest are obtained. FINDINGS: There is no focal air space opacity, pleural effusion, or pneumothorax seen. The cardiac silhouette size is within normal limits. Patient is rotated. The osseous structures are intact. IMPRESSION: No acute cardiopulmonary process.
[2017-09-20 15:16] VITALS: BP 146/91; PULSE 59; TEMP 98
== END 2017-09-20 15:16 | disposition home or self-care (01) ==
LOC: EC 12:31
DX: S09.90XA Unspecified injury of head, initial encounter (principal); F07.81 Postconcussional syndrome; G44.309 Post-traumatic headache, unspecified, not intractable; I10 Essential (primary) hypertension; R11.2 Nausea with vomiting, unspecified; G40.909 Epilepsy, unspecified, not intractable, without status epilepticus; Z86.73 Personal history of transient ischemic attack (TIA), and cerebral infarction without residual deficits; Z95.5 Presence of coronary angioplasty implant and graft; Z88.0 Allergy status to penicillin; Z88.1 Allergy status to other antibiotic agents; Z79.899 Other long term (current) drug therapy; W01.0XXA Fall on same level from slipping, tripping and stumbling without subsequent striking against object, initial encounter
CPT/HCPCS: 99284; 96374; 96375 ×3; 96361 ×2; 36415; 93005; 80053; 82550; 82553; 84484; 85025; 85610; 85730; 71046; 70450; J1100; J2765; J1885

== ENCOUNTER → 2017-11-07 | Outpatient (CLI) | payer MEDICARE ==
--- NOTE | 2017-11-07 11:27 | MR ---
EXAMINATION TYPE: MR brain wo/w con DATE OF EXAM: 11/07/2017 COMPARISON: NONE HISTORY: 47-year-old female Chronic cluster headache, intractable TECHNIQUE: Multiplanar, multisequence images of the brain and brainstem were acquired before and aft er administration of 6 mL IV Gadavist. Diffusion weighted imaging is performed. FINDINGS: No evidence for acute infarction, hemorrhage, mass, mass effect, midline shift, herniation, effacemen t of basal cisterns, or extra-axial fluid collection. The ventricles and sulci are age-appropriate. Major intracranial flow voids are intact. T2/FLAIR weighted sequences show mild to moderate scattered burden of bright white matter change part icularly in the bifrontal subcortical regions but also in the centrum semiovale and baxter radiata. A pproximately 15-20 are present on the left and 20-25 on the right. T2*gradient sequence shows no abnormal susceptibility artifact to suggest prior intracranial hemorrha ge or microbleeds. Midline structures demonstrate normal morphology. There is 4.6 mm of cerebellar tonsillar ectopia on the right and 4.8 mm on the left. No peglike configuration for the tonsils or tonsillar beaking. Post contrast images demonstrate no evidence of pathologic enhancement. Dural venous sinuses are pat ent. Moderate mucosal thickening posterior left ethmoid air cells globes are intact. IMPRESSION: 1. Mild to moderate scattered burden of T2 bright white matter change especially in the subcortical b ifrontal lobes. This is somewhat out of proportion to the patient's age. Given the patient's chronic headaches, consider foci of ischemic demyelination related to chronic migraines. Other differential c onsiderations. Early development of chronic small vessel ischemic disease or other demyelinating proc ess are also the differential. 2. Low-lying cerebellar tonsils measuring 4.8 mm is in the indeterminate range. Favor benign cerebell ar tonsillar ectopia rather than Chiari I malformation given the lack of any tonsillar beaking or peg like configuration. Clinical correlation is recommended. 3. No acute intracranial abnormality seen.
== END ==
LOC: RADMRIMAIN 08:01
PROVIDERS: ATTEND Psychiatry & Neurology Neurology
DX: G37.8 Other specified demyelinating diseases of central nervous system (principal); G93.89 Other specified disorders of brain; R90.89 Other abnormal findings on diagnostic imaging of central nervous system
CPT/HCPCS: 82565; 70553; 36415; A9581

== ENCOUNTER 2018-01-03 19:54 | Emergency (ER) | payer MEDICARE ==
[2018-01-03] MEDS ORDERED: SODIUM CHLORIDE 0.9% 1,000 ML IV STA (21:23)
[2018-01-03] MEDS ORDERED: ONDANSETRON 4 MG/2 ML VIAL IVP STA (21:23)
[2018-01-03] MEDS ORDERED: FAMOTIDINE 20 MG/2 ML VIAL IV STA (21:24)
[2018-01-03] MEDS ORDERED: methylPREDNISolone SOD SUCCI 125 MG/2 ML VIAL IV STA (21:24)
[2018-01-03 21:58] LABS: Appearance,Urine Clear (Clear); Basophils % (A) 0 %; Bilirubin,Urine Negative (Negative); Blood,Urine Negative (Negative); Color,Urine Light Yellow; Eosinophils % (A) 1 %; Glucose,Urine (UA) Negative (Negative); HCT 37.3 % (34.0-46.0); HGB 13.6 gm/dL (11.4-16.0); Ketones,Urine 1+ (Negative); Leukocyte Esterase,Urine Negative (Negative); Lymphocytes # (A) 1.3 k/uL (1.0-4.8); Lymphocytes % (A) 38 %; MCH 31.2 pg (25.0-35.0); MCHC 36.4 g/dL (31.0-37.0); MCV 85.7 fL (80.0-100.0); Mean Platelet Volume 6.8; Monocytes # (A) 0.3 k/uL (0-1.0); Monocytes % (A) 10 %; Neutrophils # (A) 1.7 k/uL (1.3-7.7); Neutrophils % (A) 50 %; Nitrite,Urine Negative (Negative); PH, Urine 5.5 (5.0-8.0); Platelet Count 229 k/uL (150-450); Protein,Urine Negative (Negative); RBC 4.35 m/uL (3.80-5.40); RDW 11.4 % (11.5-15.5); Specific Gravity,Urine 1.005 (1.001-1.035); Urobilinogen,Urine <2.0 mg/dL (<2.0); WBC 3.3 k/uL (3.8-10.6)
[2018-01-03 22:07] LABS: ALT 41 U/L (9-52); AST 26 U/L (14-36); Albumin 4.6 g/dL (3.5-5.0); Alkaline Phosphatase 76 U/L (38-126); Amylase 89 U/L (30-110); Anion Gap 14 mmol/L; Blood Urea Nitrogen 10 mg/dL (7-17); Calcium 9.7 mg/dL (8.4-10.2); Carbon Dioxide 30 mmol/L (22-30); Chloride 86 mmol/L (98-107); Glucose 97 mg/dL (74-99); Lipase 118 U/L (23-300); Potassium 3.1 mmol/L (3.5-5.1); Sodium 130 mmol/L (137-145); Total Bilirubin 0.3 mg/dL (0.2-1.3); Total Protein 7.1 g/dL (6.3-8.2)
[2018-01-03] MEDS ORDERED: POTASSIUM CHLORIDE ER 20 MEQ TAB.ER PO STA (22:43)
--- NOTE | 2018-01-03 22:45 | ED ---
Nausea/Vomiting/Diarrhea HPI - General Chief complaint: Nausea/Vomiting/Diarrhea Stated complaint: hives/vomiting Time Seen by Provider: 01/03/18 20:55 Source: patient Mode of arrival: ambulatory Limitations: no limitations - History of Present Illness Initial comments: 47-year-old female patient presents to the emergency department today for evaluation of rash to her chest and forehead as well as vomiting. Patient states that she has had this rash on her chest and 4 had a for the last couple of weeks. States this started after she sustained a sunburn to the chest and forehead. Patient states that after repeated exposure to the sun yesterday the rash seemed to worsen. Patient states the rash is itchy. Patient states that for the last couple of days she has also been having nausea and vomiting. States that she had occasional sharp pains to her stomach region. Patient did recently start new medications including spironolactone and had an increase in dosage and her verapamil. Patient states that she has had issues in the past with nausea and vomiting and did have an EGD approximate month ago but symptoms seemed to improve after that. She denies any constipation or diarrhea. She denies any hematemesis. She denies any hematochezia or melena. Denies any recent travel or sick contacts. Patient denies any recent rash, fever, chills, shortness breath, chest pain, back pain, numbness, tingling, dizziness, weakness , hematuria, dysuria, urinary urgency, urinary frequency, headache, visual changes, or any other complaints. - Related Data Home Medications Medication Instructions Recorded Confirmed HYDROcodone/APAP 7.5-325MG [[place] 1 tab PO Q6H PRN 04/18/14 01/03/18 7.5] Ethosuximide [Zarontin] 250 mg PO BID@0800,1400 04/19/14 01/03/18 Omeprazole 20 mg PO AC-BID 12/14/15 01/03/18 Butalb/Acetaminophen/Caffeine 1 cap PO QID PRN 07/17/16 01/03/18 [Fioricet 50-300-40 mg Capsule] Ibuprofen [Motrin] 200 - 400 mg PO Q6H PRN 07/17/16 01/03/18 clonazePAM [KlonoPIN] 0.5 mg PO HS 07/17/16 01/03/18 diphenhydrAMINE HCL [Benadryl] 25 mg PO TID PRN 07/17/16 01/03/18 Ondansetron HCl [Zofran] 4 mg PO Q8H PRN 09/20/17 01/03/18 Ethosuximide [Zarontin] 500 mg PO HS 01/03/18 01/03/18 Spironolactone-Hctz 25-25Mg 1 tab PO DAILY 01/03/18 01/03/18 [Aldactazide 25-25Mg] Verapamil HCl [Verelan Pm] 200 mg PO HS 01/03/18 01/03/18 Vitamin D3(Unknown) 1 tab PO HS 01/03/18 01/03/18 clonazePAM [KlonoPIN] 0.5 mg PO DAILY PRN 01/03/18 01/03/18 Previous Rx's Medication Instructions Recorded Metoclopramide [Reglan] 10 mg PO Q8H PRN #10 tab 01/03/18 predniSONE 50 mg PO DAILY #5 tablet 01/03/18 Allergies Allergy/AdvReac Type Severity Reaction Status Date / Time amoxicillin [Amoxicillin] Allergy Rash/Hives Verified 01/03/18 21:41 erythromycin base Allergy Rash/Hives Verified 01/03/18 21:41 [Erythromycin Base] erythromycin lactobionate Allergy Rash/Hives Verified 01/03/18 21:41 [From Erythrocin] Tetracyclines Allergy Rash/Hives Verified 01/03/18 21:41 Review of Systems ROS Statement: Those systems with pertinent positive or pertinent negative responses have been documented in the HPI. ROS Other: All systems not noted in ROS Statement are negative. Past Medical History Past Medical History: CVA/TIA, Hypertension, Pneumonia, Seizure Disorder Additional Past Medical History / Comment(s): Questionable history of mini strokes/TIA, frequent PVCs, gastritis and diverticulosis,small hiatal hernia, migraines, sinus problems, hx of siezures since age 8 yrs and last siezure was 3 weeks ago. History of Any Multi-Drug Resistant Organisms: None Reported Past Surgical History: Heart Catheterization, Hysterectomy Additional Past Surgical History / Comment(s): Pt had normal cardiac cath in 2011, upper and lower endoscopies Apr 2014 which showed diverticulosis and gastitis and small hiatal hernia Past Anesthesia/Blood Transfusion Reactions: Motion Sickness, Postoperative Nausea & Vomiting (PONV) Past Psychological History: No Psychological Hx Reported Smoking Status: Never smoker Past Alcohol Use History: None Reported Past Drug Use History: None Reported - Past Family History Mother Family Medical History: Hypertension, Myocardial Infarction ([place]) Additional Family Medical History / Comment(s): Pt states she had two heart attacks, and is now Father Family Medical History: Unable to Obtain Additional Family Medical History / Comment(s): Pt did not know her father-she was raised by mother and stepfather. General Exam Limitations: no limitations General appearance: alert, in no apparent distress, other (this is a well- developed, well-nourished adult female patient in no acute distress. Vital signs upon presentation are temperature 98.7F, pulse 98, respirations 18, blood pressure 147/97, pulse ox 98% on room air.) Eye exam: Present: normal appearance, PERRL, EOMI. Absent: scleral icterus, conjunctival injection, periorbital swelling ENT exam: Present: normal exam, normal oropharynx, mucous membranes moist Respiratory exam: Present: normal lung sounds bilaterally. Absent: respiratory distress, wheezes, rales, rhonchi, stridor Cardiovascular Exam: Present: regular rate, normal rhythm, normal heart sounds. Absent: systolic murmur, diastolic murmur, rubs, gallop, clicks GI/Abdominal exam: Present: soft, normal bowel sounds. Absent: distended, tenderness, guarding, rebound, rigid Neurological exam: Present: alert, oriented X3, CN II-XII intact Psychiatric exam: Present: normal affect, normal mood Skin exam: Present: warm, dry, intact, normal color, rash (there is an erythematous raised rash noted to the chest, and for head. Lesions are non- petechial, nonvesicular.) Course Vital Signs 01/03/18 01/03/18 19:58 23:06 Temperature 98.7 F 98.5 F Pulse Rate 98 74 Respiratory 18 16 Rate Blood Pressure 147/97 164/94 O2 Sat by Pulse 98 99 Oximetry Medical Decision Making - Medical Decision Making 47-year-old female patient presented to the emergency department today for evaluation of rash to her chest, nausea, and vomiting. Physical examination did reveal a rash to the sun exposed areas of her chest and forehead. She just recently started spironolactone which can cause some sun sensitivity so I do believe this is related. Patient did have improvement of her itchy symptoms with administration of steroids here in the department. Labs did reveal a low potassium low sodium, and low-dose chloride. Patient was given an IV fluid bolus of 1 L. Potassium was replaced orally. She is instructed to follow-up with her primary care physician for repeat of these labs. She'll be given a prescription for Reglan to a with the nausea. Abdomen is soft and nontender to did not perform any imaging at this time. Patient is instructed to follow-up with her primary care physician for recheck in 1-2 days. Return parameters were discussed in detail. She verbalizes understanding and agrees with this plan. - Lab Data Result diagrams: 01/03/18 21:40 01/03/18 21:40 Lab Results 01/03/18 01/03/18 01/03/18 Range/Units 21:40 21:40 21:40 WBC 3.3 L (3.8-10.6) k/uL RBC 4.35 (3.80-5.40) m/uL Hgb 13.6 (11.4-16.0) gm/dL Hct 37.3 (34.0-46.0) % MCV 85.7 (80.0-100.0) fL MCH 31.2 (25.0-35.0) pg MCHC 36.4 (31.0-37.0) g/dL RDW 11.4 L (11.5-15.5) % Plt Count 229 (150-450) k/uL Neutrophils % 50 % Lymphocytes % 38 % Monocytes % 10 % Eosinophils % 1 % Basophils % 0 % Neutrophils # 1.7 (1.3-7.7) k/uL Lymphocytes # 1.3 (1.0-4.8) k/uL Monocytes # 0.3 (0-1.0) k/uL Eosinophils # 0.0 (0-0.7) k/uL Basophils # 0.0 (0-0.2) k/uL Sodium 130 L (137-145) mmol/L Potassium 3.1 L (3.5-5.1) mmol/L Chloride 86 L (98-107) mmol/L Carbon Dioxide 30 (22-30) mmol/L Anion Gap 14 mmol/L BUN 10 (7-17) mg/dL Creatinine 0.75 (0.52-1.04) mg/dL Est GFR (CKD-EPI)AfAm >90 (>60 ml/min/1.73 sqM) Est GFR (CKD-EPI)NonAf >90 (>60 ml/min/1.73 sqM) Glucose 97 (74-99) mg/dL Calcium 9.7 (8.4-10.2) mg/dL Total Bilirubin 0.3 (0.2-1.3) mg/dL AST 26 (14-36) U/L ALT 41 (9-52) U/L Alkaline Phosphatase 76 (38-126) U/L Total Protein 7.1 (6.3-8.2) g/dL Albumin 4.6 (3.5-5.0) g/dL Amylase 89 (30-110) U/L Lipase 118 (23-300) U/L Urine Color Light Yellow Urine Appearance Clear (Clear) Urine pH 5.5 (5.0-8.0) Ur Specific Newman 1.005 (1.001-1.035) Urine Protein Negative (Negative) Urine Glucose (UA) Negative (Negative) Urine Ketones 1+ H (Negative) Urine Blood Negative (Negative) Urine Nitrite Negative (Negative) Urine Bilirubin Negative (Negative) Urine Urobilinogen <2.0 (<2.0) mg/dL Ur Leukocyte Esterase Negative (Negative) Disposition Clinical Impression: Sun allergy, Vomiting Disposition: HOME SELF-CARE Condition: Good Instructions: Acute Nausea and Vomiting (ED), Acute Rash (ED) Additional Instructions: Take medications as directed. Follow-up through primary care physician for recheck as soon as possible. Return here immediately for any new, worsening, or concerning symptoms. Prescriptions: Metoclopramide [Reglan] 10 mg PO Q8H PRN #10 tab PRN Reason: Vomiting predniSONE 50 mg PO DAILY #5 tablet Is patient prescribed a controlled substance at d/c from ED?: No Referrals: Young Palmer MD [Primary Care Provider] - 1-2 days Time of Disposition: 22:45
[2018-01-03 23:07] VITALS: BP 164/94; PULSE 74; RESP 16; TEMP 98.5
== END 2018-01-03 23:05 | disposition home or self-care (01) ==
LOC: EC 19:54
DX: L56.8 Other specified acute skin changes due to ultraviolet radiation (principal); R11.2 Nausea with vomiting, unspecified; I10 Essential (primary) hypertension; G40.909 Epilepsy, unspecified, not intractable, without status epilepticus; Z86.73 Personal history of transient ischemic attack (TIA), and cerebral infarction without residual deficits; Z79.899 Other long term (current) drug therapy; Z88.0 Allergy status to penicillin; Z88.1 Allergy status to other antibiotic agents; Z95.818 Presence of other cardiac implants and grafts
CPT/HCPCS: 36415; 80053; 82150; 83690; 85025; 81003; 99284; 96374; 96375 ×2; 96361; J2930; J2405

== ENCOUNTER 2018-04-01 17:39 | Emergency (ER) | payer MEDICARE ==
[2018-04-01] MEDS ORDERED: VERAPAMIL SR 180 MG TABLET.ER PO STA (19:59)
--- NOTE | 2018-04-01 20:03 | ED ---
Extremity Problem HPI - General Source: patient, RN notes reviewed Mode of arrival: ambulatory Limitations: no limitations <Jitendra Pacheco - Last Filed: 04/01/18 21:59> <Rima Lawrence - Last Filed: 04/02/18 22:46> - General Chief complaint: Extremity Problem,Nontraumatic Stated complaint: Foot,Ankle,knee Pain Time Seen by Provider: 04/01/18 19:40 - History of Present Illness Initial comments: 48-year-old female presents emergency Department chief complaint left leg pain. Patient states that she injured her left ankle a few weeks ago she had ankle sprain. Patient states that symptoms are getting better bruising, swelling had improved. She states that she normally has some back issues but today symptoms worsen she has left low back pain, left leg pain and she noticed some bruising to her foot is concerned about possible blood clot. Patient states her left leg feels cool to touch. She states it hurts all the way down her leg. She denies any bowel bladder incontinence or retention. Denies any new trauma. Patient has no current chest pain or shortness of breath. Patient has no history of A. fib or any vascular disorders. (Jitendra Pacheco) - Related Data Home Medications Medication Instructions Recorded Confirmed HYDROcodone/APAP 7.5-325MG [[place] 1 tab PO Q6H PRN 04/18/14 01/03/18 7.5] Ethosuximide [Zarontin] 250 mg PO BID@0800,1400 04/19/14 01/03/18 Omeprazole 20 mg PO AC-BID 12/14/15 01/03/18 Butalb/Acetaminophen/Caffeine 1 cap PO QID PRN 07/17/16 01/03/18 [Fioricet 50-300-40 mg Capsule] Ibuprofen [Motrin] 200 - 400 mg PO Q6H PRN 07/17/16 01/03/18 clonazePAM [KlonoPIN] 0.5 mg PO HS 07/17/16 01/03/18 diphenhydrAMINE HCL [Benadryl] 25 mg PO TID PRN 07/17/16 01/03/18 Ondansetron HCl [Zofran] 4 mg PO Q8H PRN 09/20/17 01/03/18 Ethosuximide [Zarontin] 500 mg PO HS 01/03/18 01/03/18 Spironolactone-Hctz 25-25Mg 1 tab PO DAILY 01/03/18 01/03/18 [Aldactazide 25-25Mg] Verapamil HCl [Verelan Pm] 200 mg PO HS 01/03/18 01/03/18 Vitamin D3(Unknown) 1 tab PO HS 01/03/18 01/03/18 clonazePAM [KlonoPIN] 0.5 mg PO DAILY PRN 01/03/18 01/03/18 Previous Rx's Medication Instructions Recorded Metoclopramide [Reglan] 10 mg PO Q8H PRN #10 tab 01/03/18 predniSONE 50 mg PO DAILY #5 tablet 01/03/18 Ibuprofen [Motrin] 600 mg PO Q8HR PRN #30 tab 04/01/18 Allergies Allergy/AdvReac Type Severity Reaction Status Date / Time amoxicillin [Amoxicillin] Allergy Rash/Hives Verified 04/01/18 18:05 erythromycin base Allergy Rash/Hives Verified 04/01/18 18:05 [Erythromycin Base] erythromycin lactobionate Allergy Rash/Hives Verified 04/01/18 18:05 [From Erythrocin] Tetracyclines Allergy Rash/Hives Verified 04/01/18 18:05 Review of Systems ROS Other: All systems not noted in ROS Statement are negative. <Jitendra Pacheco - Last Filed: 04/01/18 21:59> ROS Other: All systems not noted in ROS Statement are negative. <Rima Lawrence - Last Filed: 04/02/18 22:46> ROS Statement: Those systems with pertinent positive or pertinent negative responses have been documented in the HPI. Past Medical History Past Medical History: CVA/TIA, Hypertension, Pneumonia, Seizure Disorder Additional Past Medical History / Comment(s): Questionable history of mini strokes/TIA, frequent PVCs, gastritis and diverticulosis,small hiatal hernia, migraines, sinus problems, hx of siezures since age 8 yrs and last siezure was 3 weeks ago. History of Any Multi-Drug Resistant Organisms: None Reported Past Surgical History: Heart Catheterization, Hysterectomy Additional Past Surgical History / Comment(s): Pt had normal cardiac cath in 2011, upper and lower endoscopies Apr 2014 which showed diverticulosis and gastitis and small hiatal hernia Past Anesthesia/Blood Transfusion Reactions: Motion Sickness, Postoperative Nausea & Vomiting (PONV) Past Psychological History: No Psychological Hx Reported Smoking Status: Never smoker Past Alcohol Use History: None Reported Past Drug Use History: None Reported - Past Family History Mother Family Medical History: Hypertension, Myocardial Infarction ([place]) Additional Family Medical History / Comment(s): Pt states she had two heart attacks, and is now Father Family Medical History: Unable to Obtain Additional Family Medical History / Comment(s): Pt did not know her father-she was raised by mother and stepfather. <Jitendra Pacheco - Last Filed: 04/01/18 21:59> General Exam Limitations: no limitations General appearance: alert, in no apparent distress Head exam: Present: atraumatic, normocephalic, normal inspection Neck exam: Present: normal inspection. Absent: tenderness, meningismus, lymphadenopathy Respiratory exam: Present: normal lung sounds bilaterally. Absent: respiratory distress, wheezes, rales, rhonchi, stridor Cardiovascular Exam: Present: regular rate, normal rhythm, normal heart sounds. Absent: systolic murmur, diastolic murmur, rubs, gallop, clicks Extremities exam: Present: other (Left lower extremity slightly decreased temp noted to the left compared to the right though pedal pulses equal bilaterally and confirmed with Doppler that are equal. Patient full range of motion there is 2 ecchymotic areas noted to the left foot. Patient has full strength of left lower extremity equal bilaterally) Back exam: Present: full ROM, tenderness (Left lumbar region), paraspinal tenderness. Absent: vertebral tenderness Neurological exam: Present: reflexes normal. Absent: motor sensory deficit Skin exam: Present: warm, dry, intact, normal color. Absent: rash <Jitendra Pacheco M - Last Filed: 04/01/18 21:59> Vital Signs 04/01/18 04/01/18 04/01/18 18:03 19:47 20:29 Temperature 98.4 F Pulse Rate 75 81 Respiratory 20 16 18 Rate Blood Pressure 186/110 204/122 212/105 O2 Sat by Pulse 99 100 Oximetry 04/01/18 04/01/18 04/01/18 21:09 21:36 21:52 Temperature Pulse Rate 77 86 86 Respiratory 18 16 16 Rate Blood Pressure 189/108 174/103 178/102 O2 Sat by Pulse 99 99 98 Oximetry 04/01/18 22:13 Temperature 97.6 F Pulse Rate 62 Respiratory 16 Rate Blood Pressure O2 Sat by Pulse 99 Oximetry Medical Decision Making - Lab Data Result diagrams: 04/01/18 20:11 04/01/18 20:11 <Jitendra Pacheco - Last Filed: 04/01/18 21:59> - Lab Data Result diagrams: 04/01/18 20:11 04/01/18 20:11 <Rima Lawrence - Last Filed: 04/02/18 22:46> - Medical Decision Making 48-year-old female presents emergency from for left leg pain. Patient is concerned about possible blood clot. Symptoms are consistent with pulmonary Deep. She does have some ecchymosis to her left ankle most likely residual from her prior ankle sprain. Patient did have ultrasound which showed no acute DVT. Patient has pulses palpable and confirmed with Doppler. Patient has equal color to her lower extremities. We discussed that there is no evidence of arterial or venous occlusion. Patient symptoms we treated with anti- inflammatories and Tylenol with codeine for pain control at this time. Patient will follow-up tomorrow for recheck and return for any worsening or new symptoms. (Jitendra Pacheco) I was available for consultation in the emergency department. The history and physical exam were done by the Midlevel Provider. Medical decision making was done by the Midlevel Provider. The Midlevel Provider did not contact me for this patient's care. I was not directly involved in this patient's care. (Rima Lawrence) - Lab Data Lab Results 04/01/18 04/01/18 04/01/18 Range/Units 20:11 20:11 20:11 WBC 5.2 (3.8-10.6) k/uL RBC 4.06 (3.80-5.40) m/uL Hgb 12.8 (11.4-16.0) gm/dL Hct 39.1 (34.0-46.0) % MCV 96.3 (80.0-100.0) fL MCH 31.6 (25.0-35.0) pg MCHC 32.8 (31.0-37.0) g/dL RDW 12.2 (11.5-15.5) % Plt Count 232 (150-450) k/uL Neutrophils % 56 % Lymphocytes % 33 % Monocytes % 5 % Eosinophils % 4 % Basophils % 0 % Neutrophils # 2.9 (1.3-7.7) k/uL Lymphocytes # 1.7 (1.0-4.8) k/uL Monocytes # 0.3 (0-1.0) k/uL Eosinophils # 0.2 (0-0.7) k/uL Basophils # 0.0 (0-0.2) k/uL PT 10.2 (9.0-12.0) sec INR 1.0 (<1.2) APTT 23.8 (22.0-30.0) sec Sodium 139 (137-145) mmol/L Potassium 3.6 (3.5-5.1) mmol/L Chloride 104 (98-107) mmol/L Carbon Dioxide 24 (22-30) mmol/L Anion Gap 11 mmol/L BUN 8 (7-17) mg/dL Creatinine 0.59 (0.52-1.04) mg/dL Est GFR (CKD-EPI)AfAm >90 (>60 ml/min/1.73 sqM) Est GFR (CKD-EPI)NonAf >90 (>60 ml/min/1.73 sqM) Glucose 82 (74-99) mg/dL Plasma Lactic Acid Ronnell (0.7-2.0) mmol/L Calcium 9.2 (8.4-10.2) mg/dL 04/01/18 Range/Units 20:19 WBC (3.8-10.6) k/uL RBC (3.80-5.40) m/uL Hgb (11.4-16.0) gm/dL Hct (34.0-46.0) % MCV (80.0-100.0) fL MCH (25.0-35.0) pg MCHC (31.0-37.0) g/dL RDW (11.5-15.5) % Plt Count (150-450) k/uL Neutrophils % % Lymphocytes % % Monocytes % % Eosinophils % % Basophils % % Neutrophils # (1.3-7.7) k/uL Lymphocytes # (1.0-4.8) k/uL Monocytes # (0-1.0) k/uL Eosinophils # (0-0.7) k/uL Basophils # (0-0.2) k/uL PT (9.0-12.0) sec INR (<1.2) APTT (22.0-30.0) sec Sodium (137-145) mmol/L Potassium (3.5-5.1) mmol/L Chloride (98-107) mmol/L Carbon Dioxide (22-30) mmol/L Anion Gap mmol/L BUN (7-17) mg/dL Creatinine (0.52-1.04) mg/dL Est GFR (CKD-EPI)AfAm (>60 ml/min/1.73 sqM) Est GFR (CKD-EPI)NonAf (>60 ml/min/1.73 sqM) Glucose (74-99) mg/dL Plasma Lactic Acid Ronnell 1.2 (0.7-2.0) mmol/L Calcium (8.4-10.2) mg/dL Disposition Is patient prescribed a controlled substance at d/c from ED?: No Time of Disposition: 22:01 <Jitendra Pacheco M - Last Filed: 04/01/18 21:59> <Rima Lawrence P - Last Filed: 04/02/18 22:46> Clinical Impression: Lumbar radiculopathy, acute, Left leg pain Disposition: HOME SELF-CARE Condition: Stable Instructions: Lumbar Radiculopathy (ED) Additional Instructions: Please return to the Emergency Department if symptoms worsen or any other concerns. Prescriptions: Ibuprofen [Motrin] 600 mg PO Q8HR PRN #30 tab PRN Reason: Pain Referrals: Young Palmer MD [Primary Care Provider] - 1-2 days
[2018-04-01 20:24] LABS: Basophils % (A) 0 %; Eosinophils # (A) 0.2 k/uL (0-0.7); Eosinophils % (A) 4 %; HCT 39.1 % (34.0-46.0); HGB 12.8 gm/dL (11.4-16.0); Lymphocytes # (A) 1.7 k/uL (1.0-4.8); Lymphocytes % (A) 33 %; MCH 31.6 pg (25.0-35.0); MCHC 32.8 g/dL (31.0-37.0); MCV 96.3 fL (80.0-100.0); Mean Platelet Volume 6.8; Monocytes # (A) 0.3 k/uL (0-1.0); Monocytes % (A) 5 %; Neutrophils # (A) 2.9 k/uL (1.3-7.7); Neutrophils % (A) 56 %; Platelet Count 232 k/uL (150-450); RBC 4.06 m/uL (3.80-5.40); RDW 12.2 % (11.5-15.5); WBC 5.2 k/uL (3.8-10.6)
[2018-04-01] MEDS ORDERED: LORazepam 2 MG/ML INJ IV STA (20:24)
[2018-04-01 20:35] LABS: Partial Thromboplastin Time 23.8 sec (22.0-30.0); Prothrombin Time 10.2 sec (9.0-12.0)
[2018-04-01 20:55] LABS: Anion Gap 11 mmol/L; Blood Urea Nitrogen 8 mg/dL (7-17); Calcium 9.2 mg/dL (8.4-10.2); Carbon Dioxide 24 mmol/L (22-30); Chloride 104 mmol/L (98-107); Glucose 82 mg/dL (74-99); Potassium 3.6 mmol/L (3.5-5.1); Sodium 139 mmol/L (137-145)
[2018-04-01 21:37] VITALS: RESP 16
--- NOTE | 2018-04-01 21:45 | US ---
EXAMINATION TYPE: US venous doppler duplex LE LT DATE OF EXAM: 04/01/2018 9:00 PM COMPARISON: NONE CLINICAL HISTORY: Pain. Left leg pain SIDE PERFORMED: Left TECHNIQUE: The lower extremity deep venous system is examined utilizing real time linear array sonog katherine with graded compression, doppler sonography and color-flow sonography. VESSELS IMAGED: External Iliac Vein (EIV) Common Femoral Vein Deep Femoral Vein Greater Saphenous Vein * Femoral Vein Popliteal Vein Small Saphenous Vein * Proximal Calf Veins (* superficial vessels) FINDINGS: Grayscale, color doppler, spectral doppler imaging performed of the deep veins of the lower extremities. There is normal flow, compressibility, vascular waveforms. IMPRESSION: NEGATIVE FOR DVT LEFT LOWER EXTREMITY.
[2018-04-01 21:53] VITALS: BP 178/102
[2018-04-01] MEDS ORDERED: KETOROLAC 30 MG/ML 1 ML VIAL IVP STA (21:59)
[2018-04-01] MEDS ORDERED: ORPHENADRINE 30 MG/ML 2 ML VIAL IVP STA (21:59)
[2018-04-01] MEDS ORDERED: ACET/COD 300 MG/30 MG STARTER PACK 6 TAB BTL PO STA (22:01)
[2018-04-01 22:14] VITALS: PULSE 62; TEMP 97.6
== END 2018-04-01 22:21 | disposition home or self-care (01) ==
LOC: EC 17:39
DX: S90.02XA Contusion of left ankle, initial encounter (principal); M54.16 Radiculopathy, lumbar region; M79.605 Pain in left leg; I10 Essential (primary) hypertension; G40.909 Epilepsy, unspecified, not intractable, without status epilepticus; Z79.899 Other long term (current) drug therapy; Z88.0 Allergy status to penicillin; Z88.1 Allergy status to other antibiotic agents
CPT/HCPCS: 36415; 93005; 80048; 83605; 85025; 85610; 85730; 93971; 99284; 96374; 96375 ×2; J2060; J2360; J1885

== ENCOUNTER 2019-11-17 13:00 | Emergency (ER) | payer MEDICARE ==
[2019-11-17 13:08] VITALS: RESP 18
[2019-11-17] MEDS ORDERED: ACETAMINOPHEN TAB 500 MG TAB PO STA (13:24)
--- NOTE | 2019-11-17 13:29 | ED ---
Fall HPI - General Chief Complaint: Fall Stated Complaint: fall/wrist pain Time Seen by Provider: 11/17/19 13:09 Source: patient, family Mode of arrival: wheelchair - History of Present Illness Initial Comments: Patient is a 49-year-old female presenting to emergency Department with a chief complaint of fall. Patient states she was cleaning the bathroom tub while she was climbed on it. Patient reports she slipped and fell on the right side of her body. Patient does report head trauma with the fall but denies any loss of consciousness. Does report a headache and occipital region. Patient does report pain in the right flank region that is exacerbated with direct palpitation to the ribs and full inspiration. Denies any bruising to the region. Also reports pain on the lateral aspect of the right wrist. Does report a tingling sensation shooting from the right wrist to the index finger. Patient reports initial ecchymosis and swelling which has since resolved after she applied some ice compress. Patient denies taking medication to alleviate the symptoms. Patient is not on blood thinners. Denies any visual changes, one-sided weakness or paresthesias. - Related Data Home Medications Medication Instructions Recorded Confirmed HYDROcodone/APAP 7.5-325MG [Douglass 1 tab PO Q6H PRN 04/18/14 01/03/18 7.5] Ethosuximide [Zarontin] 250 mg PO BID@0800,1400 04/19/14 01/03/18 Omeprazole 20 mg PO AC-BID 12/14/15 01/03/18 Butalb/Acetaminophen/Caffeine 1 cap PO QID PRN 07/17/16 01/03/18 [Fioricet 50-300-40 mg Capsule] Ibuprofen [Motrin] 200 - 400 mg PO Q6H PRN 07/17/16 01/03/18 clonazePAM [KlonoPIN] 0.5 mg PO HS 07/17/16 01/03/18 diphenhydrAMINE HCL [Benadryl] 25 mg PO TID PRN 07/17/16 01/03/18 Ondansetron HCl [Zofran] 4 mg PO Q8H PRN 09/20/17 01/03/18 Ethosuximide [Zarontin] 500 mg PO HS 01/03/18 01/03/18 Spironolactone-Hctz 25-25Mg 1 tab PO DAILY 01/03/18 01/03/18 [Aldactazide 25-25Mg] Verapamil HCl [Verelan Pm] 200 mg PO HS 01/03/18 01/03/18 Vitamin D3(Unknown) 1 tab PO HS 01/03/18 01/03/18 clonazePAM [KlonoPIN] 0.5 mg PO DAILY PRN 01/03/18 01/03/18 Previous Rx's Medication Instructions Recorded Metoclopramide [Reglan] 10 mg PO Q8H PRN #10 tab 01/03/18 predniSONE 50 mg PO DAILY #5 tablet 01/03/18 Ibuprofen [Motrin] 600 mg PO Q8HR PRN #30 tab 04/01/18 Allergies Allergy/AdvReac Type Severity Reaction Status Date / Time amoxicillin [Amoxicillin] Allergy Rash/Hives Verified 04/01/18 18:05 erythromycin base Allergy Rash/Hives Verified 04/01/18 18:05 [Erythromycin Base] erythromycin lactobionate Allergy Rash/Hives Verified 04/01/18 18:05 [From Erythrocin] Tetracyclines Allergy Rash/Hives Verified 04/01/18 18:05 Review of Systems ROS Statement: Those systems with pertinent positive or pertinent negative responses have been documented in the HPI. ROS Other: All systems not noted in ROS Statement are negative. Past Medical History Past Medical History: CVA/TIA, Hypertension, Pneumonia, Seizure Disorder Additional Past Medical History / Comment(s): Questionable history of mini strokes/TIA, frequent PVCs, gastritis and diverticulosis,small hiatal hernia, migraines, sinus problems, hx of siezures since age 8 yrs and last siezure was 3 weeks ago. History of Any Multi-Drug Resistant Organisms: None Reported Past Surgical History: Heart Catheterization, Hysterectomy Additional Past Surgical History / Comment(s): Pt had normal cardiac cath in 2011, upper and lower endoscopies Apr 2014 which showed diverticulosis and gastitis and small hiatal hernia Past Anesthesia/Blood Transfusion Reactions: Motion Sickness, Postoperative Nausea & Vomiting (PONV) Past Psychological History: No Psychological Hx Reported Smoking Status: Never smoker Past Alcohol Use History: None Reported Past Drug Use History: None Reported - Past Family History Mother Family Medical History: Hypertension, Myocardial Infarction ([place]) Additional Family Medical History / Comment(s): Pt states she had two heart attacks, and is now Father Family Medical History: Unable to Obtain Additional Family Medical History / Comment(s): Pt did not know her father-she was raised by mother and stepfather. General Exam Limitations: no limitations General appearance: alert, in no apparent distress Head exam: Present: atraumatic, normocephalic, normal inspection. Absent: other (Negative Metcalf sign, negative hemotympanum or raccoon eyes.) Eye exam: Present: normal appearance, PERRL, EOMI Pupils: Present: normal accommodation ENT exam: Present: normal exam, normal oropharynx (No oral trauma.), mucous membranes moist, TM's normal bilaterally, normal external ear exam Neck exam: Present: normal inspection, full ROM. Absent: tenderness Respiratory exam: Present: normal lung sounds bilaterally Cardiovascular Exam: Present: regular rate, normal rhythm, normal heart sounds GI/Abdominal exam: Present: soft, tenderness (Tenderness in the right flank region. No ecchymosis is noted.) Extremities exam: Present: normal inspection, full ROM, tenderness (Tenderness along the lateral aspect of her right wrist.), normal capillary refill, other (+2 ulnar and radial pulses bilaterally. No other extremity tenderness.) Back exam: Present: normal inspection, full ROM. Absent: tenderness, CVA tenderness (R), CVA tenderness (L) Neurological exam: Present: alert, oriented X3, normal gait Psychiatric exam: Present: normal affect, normal mood Skin exam: Present: warm, dry, intact, normal color Course Vital Signs 11/17/19 13:01 Temperature 98.4 F Pulse Rate 71 Respiratory 18 Rate Blood Pressure 152/97 O2 Sat by Pulse 100 Oximetry Medical Decision Making - Medical Decision Making Patient is a 49-year-old female presenting to emergency Department with a chief complaint of a fall. No loss of consciousness but does have head trauma. CT of brain and C-spine unremarkable. Chest x-ray with focus in the right ribs is un remarkable. Right wrist x-rays unremarkable. No scaphoid tenderness. Pedro wrap was applied and the right wrist. Patient was given Tylenol IV. Reevaluation patient reports improvement in symptoms. Pedro parameters were thoroughly discussed the patient is understanding and agreeable. She was advised to alternate between Tylenol for pain control. Case discussed with physician. Disposition Clinical Impression: Fall, Right wrist pain, Contusion of rib on right side Disposition: HOME SELF-CARE Condition: Stable Instructions (If sedation given, give patient instructions): Rib Contusion (ED) Additional Instructions: Alternate between Tylenol Motrin for pain control. Return to emergency department if symptoms worsen. Is patient prescribed a controlled substance at d/c from ED?: No Referrals: Young Palmer MD [Primary Care Provider] - 1-2 days Time of Disposition: 14:42
--- NOTE | 2019-11-17 14:12 | CT ---
EXAMINATION TYPE: CT brain tatiana elias con DATE OF EXAM: 11/17/2019 COMPARISON: September 20, 2017 HISTORY: Head trauma CT DLP: 1258.[address] Brain: Unenhanced CT of the brain was performed. The ventricles, basal cisterns and sulci overlying the cerebral convexities demonstrate a normal appe arance. There is no evidence for intracranial hemorrhage or sulcal effacement. No mass effects are seen. If symptoms persist consider MRI. Osseous calvarium is intact. IMPRESSION: No acute intracranial process CT Cervical Spine: Unenhanced CT of the cervical spine was performed with bone and soft tissue window settings submitted . Coronal and sagittal reconstruction is obtained. There is normal alignment and prevertebral soft tissues. I do not see evidence for fracture or sublu xation. There is mild degenerative narrowing and spondylosis. The lung apices are clear. IMPRESSION: No evidence for acute fracture or subluxation of the cervical spine.
--- NOTE | 2019-11-17 14:14 | XR ---
EXAMINATION TYPE: XR wrist complete RT DATE OF EXAM: 11/17/2019 CLINICAL HISTORY: pain TECHNIQUE: Frontal, lateral and oblique images of the right wrist are obtained. Scaphoid view also s ubmitted. COMPARISON: None. FINDINGS: There is no acute fracture/dislocation evident. The joint spaces appear within normal limits. The o verlying soft tissue appears unremarkable. Scaphoid bone island incidentally noted. IMPRESSION: There is no acute fracture or dislocation seen. ICD 10 NO FRACTURE, INITIAL EVALUATION
--- NOTE | 2019-11-17 14:16 | XR ---
EXAMINATION TYPE: XR ribs RT w pa chest xray DATE OF EXAM: 11/17/2019 COMPARISON: NONE HISTORY: Pain TECHNIQUE: Single view of the chest 5 views of the ribs are submitted. FINDINGS: The lungs are clear. No Evidence for pneumothorax. No evidence for focal contusion. Medi astinal structures are midline. Evaluation of the ribs fails to demonstrate evidence for displaced r ib fracture or secondary sign of rib fracture. IMPRESSION: Negative study
[2019-11-17 14:50] VITALS: BP 160/100; PULSE 68; TEMP 97
== END 2019-11-17 14:51 | disposition home or self-care (01) ==
LOC: EC 13:00
DX: S20.211A Contusion of right front wall of thorax, initial encounter (principal); M25.531 Pain in right wrist; S09.90XA Unspecified injury of head, initial encounter; I10 Essential (primary) hypertension; G40.909 Epilepsy, unspecified, not intractable, without status epilepticus; Z79.899 Other long term (current) drug therapy; Z88.0 Allergy status to penicillin; Z88.1 Allergy status to other antibiotic agents; Z86.73 Personal history of transient ischemic attack (TIA), and cerebral infarction without residual deficits; W01.0XXA Fall on same level from slipping, tripping and stumbling without subsequent striking against object, initial encounter
CPT/HCPCS: 70450; 72125; 99284

== ENCOUNTER 2020-12-14 09:27 | Emergency (ER) | payer MEDICARE ==
[2020-12-14] MEDS ORDERED: diphenhydrAMINE 50 MG/ML 1 ML VIAL IVP STA (10:27)
[2020-12-14] MEDS ORDERED: METOCLOPRAMIDE 5 MG/ML 2 ML VIAL IVP STA (10:27)
--- NOTE | 2020-12-14 10:33 | ED ---
General Adult HPI - General Chief complaint: Eye Problems Stated complaint: cat scratch rt eye Time Seen by Provider: 12/14/20 10:03 Source: patient, family, RN notes reviewed Mode of arrival: ambulatory Limitations: no limitations - History of Present Illness Initial comments: 50-year-old female with a past medical history of TIA, hypertension, gastritis, or diverticulosis, seizure disorder, migraines presents to the emergency department for a chief complaint of headache. Patient states Sunday her's cat scratched her right eyelid. States that since afternoon she has had a headache. States it is all around her head. States it feels like her migraines but it has lasted for 3 days which is unusual. She reports she has been taking Fioricet for this which has not been helping. Patient denies visual problems.Patient has no other complaints at this time including shortness of breath, chest pain, abdominal pain, nausea or vomiting, visual changes. - Related Data Home Medications Medication Instructions Recorded Confirmed Ethosuximide [Zarontin] 250 mg PO BID 04/19/14 12/14/20 Omeprazole 20 mg PO DAILY 12/14/15 12/14/20 Butalb/Acetaminophen/Caffeine 1 cap PO Q6H PRN 07/17/16 12/14/20 [Fioricet 50-300-40 mg Capsule] Ibuprofen [Motrin] 400 mg PO Q6H PRN 07/17/16 12/14/20 diphenhydrAMINE HCL [Benadryl] 25 mg PO TID PRN 07/17/16 12/14/20 clonazePAM [KlonoPIN] 0.5 mg PO BID 01/03/18 12/14/20 Labetalol [Trandate] 100 mg PO DIRECTED PRN 11/17/19 12/14/20 Trandolapril/Verapamil HCl 1 tab PO HS 11/17/19 12/14/20 [Trandolapr-Verapam ER 4-240 mg] Aspirin EC [Ecotrin Low Dose] 81 mg PO DAILY 12/14/20 12/14/20 Cholecalciferol [Vitamin D3 (25 25 mcg PO HS 12/14/20 12/14/20 Mcg = 1000 Iu)] Ondansetron Odt [Zofran Odt] 4 mg PO Q6H PRN 12/14/20 12/14/20 acetaZOLAMIDE [Diamox] 250 mg PO BID 12/14/20 12/14/20 Previous Rx's Medication Instructions Recorded Ofloxacin 0.3% Ophth Soln [Ocuflox 2 drops RIGHT EYE QID 7 Days #10 ml 12/14/20 Ophth Soln] Allergies Allergy/AdvReac Type Severity Reaction Status Date / Time amoxicillin [Amoxicillin] Allergy Rash/Hives Verified 12/14/20 11:45 erythromycin base Allergy Rash/Hives Verified 12/14/20 11:45 [Erythromycin Base] erythromycin lactobionate Allergy Rash/Hives Verified 12/14/20 11:45 [From Erythrocin] Tetracyclines Allergy Rash/Hives Verified 12/14/20 11:45 Review of Systems ROS Statement: Those systems with pertinent positive or pertinent negative responses have been documented in the HPI. ROS Other: All systems not noted in ROS Statement are negative. Past Medical History Past Medical History: CVA/TIA, Hypertension, Pneumonia, Seizure Disorder Additional Past Medical History / Comment(s): Questionable history of mini strokes/TIA, frequent PVCs, gastritis and diverticulosis,small hiatal hernia, migraines, sinus problems, hx of siezures since age 8 yrs and last siezure was 3 weeks ago. History of Any Multi-Drug Resistant Organisms: None Reported Past Surgical History: Heart Catheterization, Hysterectomy Additional Past Surgical History / Comment(s): Pt had normal cardiac cath in 2011, upper and lower endoscopies Apr 2014 which showed diverticulosis and gastitis and small hiatal hernia Past Anesthesia/Blood Transfusion Reactions: Motion Sickness, Postoperative Nausea & Vomiting (PONV) Past Psychological History: No Psychological Hx Reported Smoking Status: Never smoker Past Alcohol Use History: None Reported Past Drug Use History: None Reported - Past Family History Mother Family Medical History: Hypertension, Myocardial Infarction ([place]) Additional Family Medical History / Comment(s): Pt states she had two heart attacks, and is now Father Family Medical History: Unable to Obtain Additional Family Medical History / Comment(s): Pt did not know her father-she was raised by mother and stepfather. General Exam Limitations: no limitations General appearance: alert, in no apparent distress Head exam: Present: atraumatic, normocephalic, normal inspection Eye exam: Present: normal appearance, PERRL, EOMI, other (Patient has a superficial healing laceration noted to the right eyelid with minimal ecchymosis.). Absent: scleral icterus, conjunctival injection (no conjunctival injection of the right eye.) Expanded Eyelids: Laceration: Right Pupils: Regular, Round: Bilateral Sclera/Conjunctival: Normal Inspection: Bilateral Visual acuity (R) = 20/: 25 Visual acuity (L) = 20/: 30 With correction: Yes IOP (R) in mmH IOP (L) in mmH IOP measured with: Tonopen ENT exam: Present: normal exam, mucous membranes moist Neck exam: Present: normal inspection, full ROM. Absent: tenderness, meningismus, lymphadenopathy Respiratory exam: Present: normal lung sounds bilaterally. Absent: respiratory distress, wheezes, rales, rhonchi, stridor Cardiovascular Exam: Present: regular rate, normal rhythm, normal heart sounds. Absent: systolic murmur, diastolic murmur, rubs, gallop, clicks GI/Abdominal exam: Present: soft, normal bowel sounds. Absent: distended, tenderness, guarding, rebound, rigid Neurological exam: Present: alert, oriented X3 Course Vital Signs 12/14/20 12/14/20 12/14/20 09:44 10:49 11:10 Temperature 98.5 F 98.2 F Pulse Rate 72 Respiratory 18 18 18 Rate Blood Pressure 138/97 140/95 O2 Sat by Pulse 100 Oximetry Medical Decision Making - Medical Decision Making Vitals are stable. Patient does have a laceration noted to the right eyelid from 3 days ago that has a healing appearance. The eye was stained with porcine stain, no evidence of abrasion. Negative Jose Alfredo sign. Visual acuity is 20/25 OD, 20/30 OS with correction. Patient denies visual changes. Intraocular pressure is 13 in the right eye, [address] brain showed a nonspecific tiny air bubbles along the anterior margin of the right globe, correlate clinically. We did also obtain a CT of the orbits that showed a nonspecific single tiny air bubble. Case was discussed with , who is Dr bardales's partner. He does agree it is possible there was puncture to the globe 3 days ago. However with normal intraocular pressure, and no defects of cornea on exam with fluoursciene and Wood's lamp and this is likely healed quickly. He recommends follow-up in the office. I also discussed possibility of Chiari malformation on CAT scan, patient will follow-up with her neurologist for this. Disposition Clinical Impression: Eye pain, Headache Disposition: HOME SELF-CARE Condition: Good Instructions (If sedation given, give patient instructions): Corneal Abrasion (ED) Additional Instructions: Please use antibiotic drops as directed. Please follow-up with Dr. Bardales by calling today to see when he would like to see you. We spoke with his partner Dr. Hawk and they want to see you in the office. If you have worsening symptoms return to the emergency room. Prescriptions: Ofloxacin 0.3% Ophth Soln [Ocuflox Ophth Soln] 2 drops RIGHT EYE QID 7 Days #10 ml Is patient prescribed a controlled substance at d/c from ED?: No Referrals: Young Palmer MD [Primary Care Provider] - 1-2 days Amos Bardales MD [STAFF PHYSICIAN] - 1-2 days Time of Disposition: 12:25
--- NOTE | 2020-12-14 11:20 | CT ---
EXAMINATION TYPE: CT brain wo con DATE OF EXAM: 12/14/2020 COMPARISON: 11/17/2019 HISTORY: right eye cat scratch CT DLP: 918.8 mGycm Automated exposure control for dose reduction was used. FINDINGS: Low-lying cerebellar tonsils. Correlate for Chiari malformation. Ventricular system midline. Artifact limits the exam. Grossly no obvious acute hemorrhage or mass effect. No midline shift. Calvarium int act. Nonspecific air bubbles seen along the anterior margin of the right globe. Changes of mild chron ic sinusitis. Hyperostosis of the calvarium. IMPRESSION: 1. Nonspecific tiny air bubble along the anterior margin of the right globe correlate clinically. 2. Correlate for Chiari malformation. Follow-up MRI recommended.
--- NOTE | 2020-12-14 11:32 | CT ---
EXAMINATION TYPE: CT orbits wo con DATE OF EXAM: 12/14/2020 COMPARISON: None HISTORY: right eye cat scratch CT DLP: 918.8 mGycm Automated exposure control for dose reduction was used. FINDINGS: There is a tiny air bubble along the anterior margin of the right globe which is nonspecific. The denise be size is symmetric. The lens appear symmetric. Optic nerves are symmetric. Osseous structures are intact there is changes of mild ethmoidal chronic sinusitis. IMPRESSION: NONSPECIFIC SINGLE TINY AIR BUBBLE ALONG THE ANTERIOR MARGIN OF THE RIGHT LOBE CORRELATE CLINICALLY. IF THERE IS CONCERN FOR OCULAR INJURY CORRELATE WITH CLINICAL EXAM.
[2020-12-14] MEDS ORDERED: FLUORESCEIN STRIPS 1 MG STRIP RIGHT EYE ONE (11:33)
[2020-12-14] MEDS ORDERED: MORPHINE SULFATE 4 MG/ML SYRINGE IVP STA (11:45)
[2020-12-14] MEDS ORDERED: DIPH,PERTUS(ACELL)TETVAC-LF 0.5 ML VIAL IM ONE (11:59)
[2020-12-14] MEDS ORDERED: OFLOXACIN 0.3% OPHTH DROPS 5 ML BOTTLE RIGHT EYE STA (12:26)
[2020-12-14 13:17] VITALS: BP 145/91; PULSE 68; RESP 16; TEMP 98
== END 2020-12-14 13:19 | disposition home or self-care (01) ==
LOC: EC 09:27
DX: S01.111D Laceration without foreign body of right eyelid and periocular area, subsequent encounter (principal); R51.9 Headache, unspecified; G40.909 Epilepsy, unspecified, not intractable, without status epilepticus; I10 Essential (primary) hypertension; Z86.73 Personal history of transient ischemic attack (TIA), and cerebral infarction without residual deficits; W55.03XD Scratched by cat, subsequent encounter
CPT/HCPCS: 99284 ×2; 96374 ×2; 96375 ×3; 90471 ×2; 70450; 70480; 90715; J2270; J1200; J2765

== ENCOUNTER 2021-03-17 08:59 | Observation (INO) | payer MEDICARE ==
[2021-03-17] MEDS ORDERED: NITROGLYCERIN OINT 1 INCH/GM PACKET TOPICAL STA (09:26)
[2021-03-17] MEDS ORDERED: ASPIRIN 81 MG PO STA (09:26)
[2021-03-17] MEDS ORDERED: SODIUM CHLORIDE 0.9% 500 ML 500 ML IV STA (09:26)
[2021-03-17] MEDS ORDERED: ONDANSETRON 4 MG/2 ML VIAL IVP STA (09:30)
[2021-03-17 09:41] LABS: Basophils % (A) 1 %; Eosinophils # (A) 0.1 k/uL (0-0.7); Eosinophils % (A) 1 %; HCT 43.4 % (34.0-46.0); Lymphocytes # (A) 1.5 k/uL (1.0-4.8); Lymphocytes % (A) 34 %; MCH 33.5 pg (25.0-35.0); MCHC 34.5 g/dL (31.0-37.0); MCV 97.1 fL (80.0-100.0); Mean Platelet Volume 7.6; Monocytes # (A) 0.2 k/uL (0-1.0); Monocytes % (A) 4 %; Neutrophils # (A) 2.6 k/uL (1.3-7.7); Neutrophils % (A) 58 %; Platelet Count 200 k/uL (150-450); RBC 4.48 m/uL (3.80-5.40); RDW 13.6 % (11.5-15.5); WBC 4.5 k/uL (3.8-10.6)
[2021-03-17 09:54] LABS: Prothrombin Time 10.2 sec (9.0-12.0)
[2021-03-17 09:55] LABS: Albumin 4.7 g/dL (3.5-5.0); Calcium 9.7 mg/dL (8.4-10.2); Total Bilirubin 0.4 mg/dL (0.2-1.3); Total Protein 7.2 g/dL (6.3-8.2)
--- NOTE | 2021-03-17 10:04 | XR ---
EXAMINATION TYPE: XR chest 2V DATE OF EXAM: 03/17/2021 COMPARISON: Chest x-ray November 17, 2019 HISTORY: Chest pain. TECHNIQUE: Frontal and lateral views of the chest are obtained. FINDINGS: Overlying EKG leads are present on current study. There is no suspicious new focal air spac e opacity, pleural effusion, or pneumothorax seen. The cardiac silhouette size remains within normal limits. The osseous structures are intact. IMPRESSION: No acute process. No significant change from prior.
--- NOTE | 2021-03-17 10:28 | ED ---
General Adult HPI - General Chief complaint: Chest Pain Stated complaint: Chest pain Time Seen by Provider: 03/17/21 09:00 Source: patient, RN notes reviewed, old records reviewed Mode of arrival: ambulatory Limitations: no limitations - History of Present Illness Initial comments: This is a 50-year-old female presents emergency department with past medical history significant for high blood pressure. Patient comes into the emergency department today stating that she has left-sided chest pain started lower left chest and has since moved up inside her chest approximately just to the right side. Patient states the breathing seems to make it little worse but his been pretty constant since last evening. Patient denies any diaphoretic episodes. P atient denies nausea. Patient denies any shortness of breath or difficulty breathing. Patient is a recent fever chills or cough. Patient states there is some radiation of the pain into her back. Patient denies any lightheadedness or dizziness. Patient denies headache patient denies numbness weakness. Patient denies any swelling of the legs or calf tenderness. - Related Data Home Medications Medication Instructions Recorded Confirmed Ethosuximide [Zarontin] 250 mg PO BID 04/19/14 12/14/20 Omeprazole 20 mg PO DAILY 12/14/15 12/14/20 Butalb/Acetaminophen/Caffeine 1 cap PO Q6H PRN 07/17/16 12/14/20 [Fioricet 50-300-40 mg Capsule] Ibuprofen [Motrin] 400 mg PO Q6H PRN 07/17/16 12/14/20 diphenhydrAMINE HCL [Benadryl] 25 mg PO TID PRN 07/17/16 12/14/20 clonazePAM [KlonoPIN] 0.5 mg PO BID 01/03/18 12/14/20 Labetalol [Trandate] 100 mg PO DIRECTED PRN 11/17/19 12/14/20 Trandolapril/Verapamil HCl 1 tab PO HS 11/17/19 12/14/20 [Trandolapr-Verapam ER 4-240 mg] Aspirin EC [Ecotrin Low Dose] 81 mg PO DAILY 12/14/20 12/14/20 Cholecalciferol [Vitamin D3 (25 25 mcg PO HS 12/14/20 12/14/20 Mcg = 1000 Iu)] Ondansetron Odt [Zofran Odt] 4 mg PO Q6H PRN 12/14/20 12/14/20 acetaZOLAMIDE [Diamox] 250 mg PO BID 12/14/20 12/14/20 Previous Rx's Medication Instructions Recorded Ofloxacin 0.3% Ophth Soln [Ocuflox 2 drops RIGHT EYE QID 7 Days #10 ml 12/14/20 Ophth Soln] Allergies Allergy/AdvReac Type Severity Reaction Status Date / Time amoxicillin [Amoxicillin] Allergy Rash/Hives Verified 03/17/21 09:01 erythromycin base Allergy Rash/Hives Verified 03/17/21 09:01 [Erythromycin Base] erythromycin lactobionate Allergy Rash/Hives Verified 03/17/21 09:01 [From Erythrocin] Tetracyclines Allergy Rash/Hives Verified 03/17/21 09:01 Review of Systems ROS Statement: Those systems with pertinent positive or pertinent negative responses have been documented in the HPI. ROS Other: All systems not noted in ROS Statement are negative. Past Medical History Past Medical History: CVA/TIA, Hypertension, Pneumonia, Seizure Disorder Additional Past Medical History / Comment(s): Questionable history of mini strokes/TIA, frequent PVCs, gastritis and diverticulosis,small hiatal hernia, migraines, sinus problems, hx of siezures since age 8 yrs and last siezure was 3 weeks ago. History of Any Multi-Drug Resistant Organisms: None Reported Past Surgical History: Heart Catheterization, Hysterectomy Additional Past Surgical History / Comment(s): Pt had normal cardiac cath in 2011, upper and lower endoscopies Apr 2014 which showed diverticulosis and gastitis and small hiatal hernia Past Anesthesia/Blood Transfusion Reactions: Motion Sickness, Postoperative Nausea & Vomiting (PONV) Past Psychological History: No Psychological Hx Reported Smoking Status: Never smoker Past Alcohol Use History: None Reported Past Drug Use History: None Reported - Past Family History Mother Family Medical History: Hypertension, Myocardial Infarction ([place]) Additional Family Medical History / Comment(s): Pt states she had two heart attacks, and is now Father Family Medical History: Unable to Obtain Additional Family Medical History / Comment(s): Pt did not know her father-she was raised by mother and stepfather. General Exam - General Exam Comments Initial Comments: GENERAL: Patient is well-developed and well-nourished. Patient is nontoxic and well- hydrated and is in mild distress. ENT: Neck is soft and supple. No significant lymphadenopathy is noted. Oropharynx is clear. Moist mucous membranes. Neck has full range of motion without eliciting any pain. EYES: The sclera were anicteric and conjunctiva were pink and moist. Extraocular movements were intact and pupils were equal round and reactive to light. Eyelids were unremarkable. PULMONARY: Unlabored respirations. Good breath sounds bilaterally. No audible rales rhonchi or wheezing was noted. CARDIOVASCULAR: There is a regular rate and rhythm without any murmurs gallops or rubs. ABDOMEN: Soft and nontender with normal bowel sounds. SKIN: Skin is clear with no lesions or rashes and otherwise unremarkable. NEUROLOGIC: Patient is alert and oriented x3. Cranial nerves II through XII are grossly intact. Motor and sensory are also intact. Normal speech, volume and content. Symmetrical smile. MUSCULOSKELETAL: Normal extremities with adequate strength and full range of motion. LYMPHATICS: No significant lymphadenopathy is noted PSYCHIATRIC: Normal psychiatric evaluation. Limitations: no limitations Course Vital Signs 03/17/21 03/17/21 03/17/21 09:01 10:45 11:44 Temperature 97.9 F 98.2 F Pulse Rate 69 64 60 Respiratory 18 16 16 Rate Blood Pressure 145/89 141/92 138/92 O2 Sat by Pulse 100 99 100 Oximetry Medical Decision Making - Medical Decision Making EKG shows normal sinus rhythm at 60 bpm ME interval 138 QRS is 86 QT interval is 434 QTC is 434. Patient's EKG shows no ST segment elevation or depression. Patient's chest pain was somewhat relieved with nitroglycerin. Chest x-ray showed no acute abnormality. I spoke with Dr. Grant agreed to admit the patient the patient I consult cardiology. - Lab Data Result diagrams: 03/17/21 09:29 03/17/21 09:29 Lab Results 03/17/21 03/17/21 03/17/21 Range/Units 09:29 09:29 09:29 WBC 4.5 (3.8-10.6) k/uL RBC 4.48 (3.80-5.40) m/uL Hgb 15.0 (11.4-16.0) gm/dL Hct 43.4 (34.0-46.0) % MCV 97.1 (80.0-100.0) fL MCH 33.5 (25.0-35.0) pg MCHC 34.5 (31.0-37.0) g/dL RDW 13.6 (11.5-15.5) % Plt Count 200 (150-450) k/uL MPV 7.6 Neutrophils % 58 % Lymphocytes % 34 % Monocytes % 4 % Eosinophils % 1 % Basophils % 1 % Neutrophils # 2.6 (1.3-7.7) k/uL Lymphocytes # 1.5 (1.0-4.8) k/uL Monocytes # 0.2 (0-1.0) k/uL Eosinophils # 0.1 (0-0.7) k/uL Basophils # 0.0 (0-0.2) k/uL PT 10.2 (9.0-12.0) sec INR 1.0 (<1.2) APTT 23.0 (22.0-30.0) sec D-Dimer <0.17 (<0.60) mg/L FEU Sodium 140 (137-145) mmol/L Potassium 4.0 (3.5-5.1) mmol/L Chloride 112 H (98-107) mmol/L Carbon Dioxide 16 L (22-30) mmol/L Anion Gap 12 mmol/L BUN 12 (7-17) mg/dL Creatinine 0.91 (0.52-1.04) mg/dL Est GFR (CKD-EPI)AfAm 85 (>60 ml/min/1.73 sqM) Est GFR (CKD-EPI)NonAf 74 (>60 ml/min/1.73 sqM) Glucose 101 H (74-99) mg/dL Calcium 9.7 (8.4-10.2) mg/dL Magnesium 2.0 (1.6-2.3) mg/dL Total Bilirubin 0.4 (0.2-1.3) mg/dL AST 20 (14-36) U/L ALT 20 (4-34) U/L Alkaline Phosphatase 78 (38-126) U/L Troponin I (0.000-0.034) ng/mL Total Protein 7.2 (6.3-8.2) g/dL Albumin 4.7 (3.5-5.0) g/dL 03/17/21 Range/Units 09:29 WBC (3.8-10.6) k/uL RBC (3.80-5.40) m/uL Hgb (11.4-16.0) gm/dL Hct (34.0-46.0) % MCV (80.0-100.0) fL MCH (25.0-35.0) pg MCHC (31.0-37.0) g/dL RDW (11.5-15.5) % Plt Count (150-450) k/uL MPV Neutrophils % % Lymphocytes % % Monocytes % % Eosinophils % % Basophils % % Neutrophils # (1.3-7.7) k/uL Lymphocytes # (1.0-4.8) k/uL Monocytes # (0-1.0) k/uL Eosinophils # (0-0.7) k/uL Basophils # (0-0.2) k/uL PT (9.0-12.0) sec INR (<1.2) APTT (22.0-30.0) sec D-Dimer (<0.60) mg/L FEU Sodium (137-145) mmol/L Potassium (3.5-5.1) mmol/L Chloride (98-107) mmol/L Carbon Dioxide (22-30) mmol/L Anion Gap mmol/L BUN (7-17) mg/dL Creatinine (0.52-1.04) mg/dL Est GFR (CKD-EPI)AfAm (>60 ml/min/1.73 sqM) Est GFR (CKD-EPI)NonAf (>60 ml/min/1.73 sqM) Glucose (74-99) mg/dL Calcium (8.4-10.2) mg/dL Magnesium (1.6-2.3) mg/dL Total Bilirubin (0.2-1.3) mg/dL AST (14-36) U/L ALT (4-34) U/L Alkaline Phosphatase (38-126) U/L Troponin I <0.012 (0.000-0.034) ng/mL Total Protein (6.3-8.2) g/dL Albumin (3.5-5.0) g/dL Disposition Clinical Impression: Chest pain Disposition: ADMITTED IP TO THIS [facility] Referrals: Young Palmer MD [Primary Care Provider] - 1-2 days Time of Disposition: 12:06
[2021-03-17] MEDS ORDERED: NITROGLYCERIN SL TABS 0.4 MG TAB SUBLINGUAL PRN (12:06)
[2021-03-17] MEDS ORDERED: BUTALB/APAP/CAFF 50-325-40MG TAB PO PRN (17:17)
[2021-03-17] MEDS ORDERED: ONDANSETRON ODT 4 MG TAB PO PRN (17:17)
[2021-03-17] MEDS ORDERED: IBUPROFEN 400 MG TAB PO PRN (17:17)
[2021-03-17] MEDS ORDERED: diphenhydrAMINE 25 MG CAP PO PRN (17:17)
[2021-03-17] MEDS ORDERED: LORazepam 2 MG/ML INJ ONE (18:08)
[2021-03-17] MEDS: NITROGLYCERIN OINT 1 INCH/GM PACKET TOPICAL SCH (18:22)
--- NOTE | 2021-03-17 18:42 | P.HPIM ---
History of Present Illness H&P Date: 03/17/21 Chief Complaint: Chest pain History of presenting complaint: This is a very pleasant 50-year-old patient of Dr. Palmer. Chronic stable medical conditions include hypertension, diverticulosis, migraines,. Patient did have a negative cardiac catheterization in 2011. Patient does follow with the neurologist from [facility] called . Patient has a diagnosis of abscess and grand mal seizures. She's had trouble taking antiseizure medications in the past. Of late she been having about 4-5 seizures a month. In fact she had one just before 5 walked in the room and she had taken her on Klonopin and sees a subsided. She was having an aura before that. That could include having hiccups or nausea. at the bedside. Since yesterday patient noticed a sharp pain in the lower sternal area and below the left rib cage. Present off and on. Patient also felt some tingling in the hands and legs. Normally patient has a good excess tolerance. No dizziness no lightheadedness. Did also looking into new antiseizure medications and medication other than shortness of protocol with the same. Patient occasionally gets reflux symptoms. Past medical history to include: Hypertension, grand mal/absence seizures, diverticulosis, migraine Social history: . No history of smoking and alcohol. Family history: myocardial infarction, hypertension Physical examination: VITAL SIGNS: [BMI 97.8, 58, 18, 127/74, 99% room air GENERAL: BMI 21.2, laying in bed, awake comfortable. EYES: Pupils equal. Conjunctiva normal. HEENT: External appearance of nose and ears normal, oral cavity grossly normal. NECK: JVD not raised; masses not palpable. HEART: First and second heart sounds are normal; no edema. LUNGS: Respiratory rate normal; clear to auscultation. CHEST wall: Some reproducible pain in the lower sternum and in the medial part of the rib cage ABDOMEN: Soft, nontender, liver spleen not palpable, no masses palpable. PSYCH: Alert and oriented x3; mood and affect normal. NEUROLOGICAL: Cranial nerves grossly intact; no facial asymmetry, power and sensation grossly intact. LYMPHATICS: No lymph nodes palpable in the axilla and neck INVESTIGATIONS, reviewed in the clinical context: White count 4.5 hemoglobin 15 platelets 200 potassium 4 BUN 12 creatinine 0.91 Troponin I less than 0.0123 EKG tracing personally reviewed by me-nonspecific ST segment changes Chest x-ray film personally reviewed by me-lung gao clear Assessment and plan: -This patient presents with chest pain starting off yesterday. Some reproduci bility. Could be costochondritis. On a positive history of coronary artery disease. Troponins are negative. Some ST segment changes. We'll do 2-D echocardiogram. Telemetry. Consult cardiology. Aspirin -Tonic-clonic and absence seizures. Somewhat uncontrolled. Patient had 4-5 episodes a month. Normally controlled with Klonopin. Patient looking into new antiseizure medications. Discussed with the patient and -GERD Omeprazole 20 mg daily -Essential hypertension trandolapril/verapamil/250 one tablet daily at bedtime -Chronic, colonic diverticulosis Asymptomatic Care was discussed with the patient and at bedside. Home medications resumed. Telemetry. Cardiac consultation. 2-D echocardiogram. Past Medical History Past Medical History: CVA/TIA, Hypertension, Pneumonia, Seizure Disorder Additional Past Medical History / Comment(s): Questionable history of mini strokes/TIA, frequent PVCs, gastritis and diverticulosis,small hiatal hernia, migraines, sinus problems, hx of siezures since age 8 yrs and last siezure was 01/16/21. History of Any Multi-Drug Resistant Organisms: None Reported Past Surgical History: Heart Catheterization, Hysterectomy Additional Past Surgical History / Comment(s): Pt had normal cardiac cath in 2011, upper and lower endoscopies Apr 2014 which showed diverticulosis and gastitis and small hiatal hernia Past Anesthesia/Blood Transfusion Reactions: Motion Sickness, Postoperative Nausea & Vomiting (PONV) Past Psychological History: No Psychological Hx Reported Additional Psychological History / Comment(s): Pt lives in her home with she is nornally independent. Smoking Status: Never smoker Past Alcohol Use History: None Reported Past Drug Use History: None Reported - Past Family History Mother Family Medical History: Hypertension, Myocardial Infarction ([place]) Additional Family Medical History / Comment(s): Pt states she had two heart attacks, and is now Father Family Medical History: Unable to Obtain Additional Family Medical History / Comment(s): Pt did not know her father-she was raised by mother and stepfather. Medications and Allergies Home Medications Medication Instructions Recorded Confirmed Type Ethosuximide [Zarontin] 250 mg PO BID 04/19/14 03/17/21 History Omeprazole 20 mg PO DAILY 12/14/15 03/17/21 History Butalb/Acetaminophen/Caffeine 1 cap PO Q6H PRN 07/17/16 03/17/21 History [Fioricet 50-300-40 mg Capsule] Ibuprofen [Motrin] 400 mg PO BID PRN 07/17/16 03/17/21 History diphenhydrAMINE HCL [Benadryl] 25 mg PO BID PRN 07/17/16 03/17/21 History clonazePAM [KlonoPIN] 0.5 mg PO BID 01/03/18 03/17/21 History Labetalol [Trandate] 100 mg PO DIRECTED PRN 11/17/19 03/17/21 History Trandolapril/Verapamil HCl 1 tab PO HS 11/17/19 03/17/21 History [Trandolapr-Verapam ER 4-240 mg] Aspirin EC [Ecotrin Low Dose] 81 mg PO DAILY 12/14/20 03/17/21 History Cholecalciferol [Vitamin D3 (25 25 mcg PO HS 12/14/20 03/17/21 History Mcg = 1000 Iu)] Ondansetron Odt [Zofran Odt] 4 mg PO Q6H PRN 12/14/20 03/17/21 History acetaZOLAMIDE [Diamox] 250 mg PO BID 12/14/20 03/17/21 History Allergies Allergy/AdvReac Type Severity Reaction Status Date / Time amoxicillin [Amoxicillin] Allergy Rash/Hives Verified 03/17/21 12:29 erythromycin base Allergy Rash/Hives Verified 03/17/21 12:29 [Erythromycin Base] erythromycin lactobionate Allergy Rash/Hives Verified 03/17/21 12:29 [From Erythrocin] Tetracyclines Allergy Rash/Hives Verified 03/17/21 12:29 Physical Exam Vitals: Vital Signs Temp Pulse Pulse Resp BP BP Pulse Ox 03/17/21 14:24 97.8 F 58 L 18 127/74 99 03/17/21 13:58 98.2 F 61 16 158/74 98 03/17/21 11:44 98.2 F 60 16 138/92 100 03/17/21 10:45 64 16 141/92 99 03/17/21 09:01 97.9 F 69 18 145/89 100 Intake and Output 03/17/21 03/17/21 03/17/21 06:59 14:59 22:59 Intake Total 300 Balance 300 Intake: Oral 300 Other: # Voids 2 Weight 50.802 kg Results CBC & Chem 7: 03/17/21 09:29 03/17/21 09:29 Labs: Abnormal Lab Results - Last 24 Hours (Table) 03/17/21 Range/Units 09:29 Chloride 112 H (98-107) mmol/L Carbon Dioxide 16 L (22-30) mmol/L Glucose 101 H (74-99) mg/dL Thrombosis Risk Factor Assmnt - Choose All That Apply Any of the Below Risk Factors Present?: Yes Each Factor Represents 1 point: Age 41-60 years Other Risk Factors: No Thrombosis Risk Factor Assessment Total Risk Factor Score: 1 Thrombosis Risk Factor Assessment Level: Low Risk
[2021-03-17] MEDS: acetaZOLAMIDE 250 MG TAB PO SCH (20:41)
[2021-03-17] MEDS: clonazePAM 0.5 MG TAB PO SCH (20:42)
[2021-03-17] MEDS: ETHOSUXIMIDE 250 MG PO SCH (20:48)
[2021-03-17] MEDS ORDERED: VERAPAMIL SR 240 MG TABLET.ER PO SCH (21:00)
[2021-03-17] MEDS ORDERED: CHOLECALCIFEROL 25 MCG (1000 IU) TABLET PO SCH (21:00)
[2021-03-17] MEDS ORDERED: lisinopriL 20 MG TAB PO SCH (21:00)
[2021-03-18] MEDS: NITROGLYCERIN OINT 1 INCH/GM PACKET TOPICAL SCH ×2 (00:58→05:50)
[2021-03-18] MEDS ORDERED: PANTOPRAZOLE 40 MG TABLET PO SCH (07:30)
[2021-03-18 08:00] VITALS: TEMP 97.9
[2021-03-18] MEDS ORDERED: DOBUTamine DRIP for NUC MED 500 MG in DEXTROSE/WATER 1 250ML.BAG IV PRN (08:49)
[2021-03-18] MEDS ORDERED: ASPIRIN 81 MG PO SCH (09:00)
[2021-03-18] MEDS ORDERED: ASPIRIN 325 MG TAB PO SCH (09:00)
[2021-03-18] MEDS: clonazePAM 0.5 MG TAB PO SCH (09:52)
[2021-03-18] MEDS: acetaZOLAMIDE 250 MG TAB PO SCH (09:53)
[2021-03-18] MEDS: ETHOSUXIMIDE 250 MG PO SCH (09:54)
--- NOTE | 2021-03-18 10:02 | P.CRDCN ---
History of Present Illness Consult date: 03/18/21 History of present illness: HISTORY OF PRESENT ILLNESS: This is a 50-year-old female with a past medical history significant for hypertension and seizures. Patient states she follows with a plate mill mill hand the [facility]. We have been asked to see the patient in consultation for chest pain. Patient examined at the bedside. Patient reports two days ago she began having pain under her left rib cage. She states she did not think much of it but the following day, the pain persisted and into her the middle of her chest and the left upper chest. She also reports some sharp shooting pains into her back and down her left arm. She reports feeling nauseated at that time as well. She states the pain was worse with deep inspiration. She denies any worsening pain with chest wall palpation. She states the pain improved when she came to the emergency room and was given nitro paste. The patient gives a history of PVCs and states she had a stress test in 2011 which was abnormal and subsequently had a heart catheterization which revealed normal coronary arteries per the patient. Patient also reports her mother had a heart attack when she was in her 50s. EKG reveals sinus mechanism with nonspecific ST-T wave changes Chest xray no acute process Laboratory data: WBC 4.5. Hemoglobin 15.0. Platelet count 200. D-dimer 0.17. Sodium 140. Potassium 4.0. B UN 12. Creatinine 0.91. Magnesium 2.0. Troponin negative 3 Current home cardiac medications include aspirin 81mg daily, Trandolapril- Verapamil 4-240mg at night, diamox 250mg BID, and labetalol 100mg daily as needed REVIEW OF SYSTEMS: At the time of my exam: CONSTITUTIONAL: Denies fever or chills. HEENT: Denies blurred vision, vision changes, or eye pain. Denies hemoptysis CARDIOVASCULAR: Denies chest pain. Denies orthopnea. Denies PND. Denies palpitations RESPIRATORY: Denies shortness of breath. GASTROINTESTINAL: Denies abdominal pain. Denies nausea or vomiting. HEMATOLOGIC: Denies bleeding disorders. GENITOURINARY: Denies any blood in urine. SKIN: Denies pruitis. Denies rash. PHYSICAL EXAM: VITAL SIGNS: Reviewed. GENERAL: Well-developed in no acute distress. HEENT: Head is normocephalic. Pupils are equal, round. Sclerae anicteric. Mucous membranes of the mouth are moist. Neck supple. No JVD or thyromegaly LUNGS: Respirations even and unlabored. Lungs essentially clear to auscultation bilaterally. HEART: Regular rate and rhythm. S1 and S2 heard. ABDOMEN: Soft. Nondistended. Nontender. EXTREMITIES: Normal range of motion. No clubbing or cyanosis. Peripheral pulses intact. No lower extremity edema NEUROLOGIC: Awake and alert. Oriented x 3. ASSESSMENT: Chest pain, troponin negative x 3 Hypertension Seizures PLAN: An acute coronary event has been ruled out Resume home cardiac medications Obtain 2D echo to assess cardiac structure and function Patient to undergo Dobutamine stress echo today Further recommendations pending patient course Nurse practitioner note has been reviewed by physician. Signing provider agrees with the documented findings, assessment, and plan of care. Past Medical History Past Medical History: CVA/TIA, Hypertension, Pneumonia, Seizure Disorder Additional Past Medical History / Comment(s): Questionable history of mini strokes/TIA, frequent PVCs, gastritis and diverticulosis,small hiatal hernia, migraines, sinus problems, hx of siezures since age 8 yrs and last siezure was 01/16/21. History of Any Multi-Drug Resistant Organisms: None Reported Past Surgical History: Heart Catheterization, Hysterectomy Additional Past Surgical History / Comment(s): Pt had normal cardiac cath in 2011, upper and lower endoscopies Apr 2014 which showed diverticulosis and gastitis and small hiatal hernia Past Anesthesia/Blood Transfusion Reactions: Motion Sickness, Postoperative Nausea & Vomiting (PONV) Past Psychological History: No Psychological Hx Reported Additional Psychological History / Comment(s): Pt lives in her home with she is nornally independent. Smoking Status: Never smoker Past Alcohol Use History: None Reported Past Drug Use History: None Reported - Past Family History Mother Family Medical History: Hypertension, Myocardial Infarction (OR) Additional Family Medical History / Comment(s): Pt states she had two heart attacks, and is now Father Family Medical History: Unable to Obtain Additional Family Medical History / Comment(s): Pt did not know her father-she was raised by mother and stepfather. Medications and Allergies Home Medications Medication Instructions Recorded Confirmed Type Ethosuximide [Zarontin] 250 mg PO BID 04/19/14 03/17/21 History Omeprazole 20 mg PO DAILY 12/14/15 03/17/21 History Butalb/Acetaminophen/Caffeine 1 cap PO Q6H PRN 07/17/16 03/17/21 History [Fioricet 50-300-40 mg Capsule] Ibuprofen [Motrin] 400 mg PO BID PRN 07/17/16 03/17/21 History diphenhydrAMINE HCL [Benadryl] 25 mg PO BID PRN 07/17/16 03/17/21 History clonazePAM [KlonoPIN] 0.5 mg PO BID 01/03/18 03/17/21 History Labetalol [Trandate] 100 mg PO DIRECTED PRN 11/17/19 03/17/21 History Trandolapril/Verapamil HCl 1 tab PO HS 11/17/19 03/17/21 History [Trandolapr-Verapam ER 4-240 mg] Aspirin EC [Ecotrin Low Dose] 81 mg PO DAILY 12/14/20 03/17/21 History Cholecalciferol [Vitamin D3 (25 25 mcg PO HS 12/14/20 03/17/21 History Mcg = 1000 Iu)] Ondansetron Odt [Zofran Odt] 4 mg PO Q6H PRN 12/14/20 03/17/21 History acetaZOLAMIDE [Diamox] 250 mg PO BID 12/14/20 03/17/21 History Allergies Allergy/AdvReac Type Severity Reaction Status Date / Time amoxicillin [Amoxicillin] Allergy Rash/Hives Verified 03/17/21 12:29 erythromycin base Allergy Rash/Hives Verified 03/17/21 12:29 [Erythromycin Base] erythromycin lactobionate Allergy Rash/Hives Verified 03/17/21 12:29 [From Erythrocin] Tetracyclines Allergy Rash/Hives Verified 03/17/21 12:29 Physical Exam Vitals: Vital Signs Temp Pulse Pulse Resp BP BP Pulse Ox 03/18/21 02:00 59 L 16 03/18/21 01:23 97.7 F 59 L 16 97/60 97 03/17/21 20:00 55 L 16 03/17/21 19:02 98.5 F 55 L 16 124/74 97 03/17/21 14:24 97.8 F 58 L 18 127/74 99 03/17/21 13:58 98.2 F 61 16 158/74 98 03/17/21 11:44 98.2 F 60 16 138/92 100 03/17/21 10:45 64 16 141/92 99 03/17/21 09:01 97.9 F 69 18 145/89 100 Intake and Output 03/17/21 03/18/21 03/18/21 22:59 06:59 14:59 Intake Total 500 0 Balance 500 0 Intake: Oral 500 0 Other: Voiding Method Toilet # Voids 1 2 Results 03/17/21 09:29 03/17/21 09:29 Cardiac Enzymes 03/17/21 03/17/21 03/17/21 Range/Units 09:29 09:29 12:15 AST 20 (14-36) U/L Troponin I <0.012 <0.012 (0.000-0.034) ng/mL 03/17/21 Range/Units 15:56 AST (14-36) U/L Troponin I <0.012 (0.000-0.034) ng/mL Coagulation 03/17/21 Range/Units 09:29 PT 10.2 (9.0-12.0) sec APTT 23.0 (22.0-30.0) sec CBC 03/17/21 Range/Units 09:29 WBC 4.5 (3.8-10.6) k/uL RBC 4.48 (3.80-5.40) m/uL Hgb 15.0 (11.4-16.0) gm/dL Hct 43.4 (34.0-46.0) % Plt Count 200 (150-450) k/uL Comprehensive Metabolic Panel 03/17/21 Range/Units 09:29 Sodium 140 (137-145) mmol/L Potassium 4.0 (3.5-5.1) mmol/L Chloride 112 H (98-107) mmol/L Carbon Dioxide 16 L (22-30) mmol/L BUN 12 (7-17) mg/dL Creatinine 0.91 (0.52-1.04) mg/dL Glucose 101 H (74-99) mg/dL Calcium 9.7 (8.4-10.2) mg/dL AST 20 (14-36) U/L ALT 20 (4-34) U/L Alkaline Phosphatase 78 (38-126) U/L Total Protein 7.2 (6.3-8.2) g/dL Albumin 4.7 (3.5-5.0) g/dL Current Medications Generic Name Dose Route Start Last Admin Trade Name Freq PRN Reason Stop Dose Admin Acetaminophen/Butalbital/Caffeine 1 each 03/17/21 17:17 Butalb/Apap/Caff 50-325-40mg Tab PO Q6H PRN Migraine Headache Acetazolamide 250 mg 03/17/21 21:00 03/17/21 20:41 Acetazolamide 250 Mg Tab PO 250 mg BID JILL Administration Aspirin 81 mg 03/18/21 09:00 Aspirin 81 Mg PO DAILY JILL Cholecalciferol 25 mcg 03/17/21 21:00 03/17/21 20:41 Cholecalciferol 25 Mcg (1000 Iu) Tablet PO 25 mcg HS JILL Administration Clonazepam 0.5 mg 03/17/21 21:00 03/17/21 20:42 Clonazepam 0.5 Mg Tab PO 0.5 mg BID JILL Administration Diphenhydramine HCl 25 mg 03/17/21 17:17 Diphenhydramine 25 Mg Cap PO BID PRN Allergy Symptoms Ibuprofen 400 mg 03/17/21 17:17 Ibuprofen 400 Mg Tab PO BID PRN Pain Lisinopril 40 mg 03/17/21 21:00 03/17/21 20:41 Lisinopril 20 Mg Tab PO 40 mg HS [facility] Administration Nitroglycerin 0.4 mg 03/17/21 12:06 Nitroglycerin Sl Tabs 0.4 Mg Tab SUBLINGUAL Q5M PRN Chest Pain Nitroglycerin 1 inch 03/17/21 18:00 03/18/21 05:50 Nitroglycerin Oint 1 Inch/Gm Packet TOPICAL 1 inch Q6HR [facility] Administration Non-Formulary Medication 250 mg 03/17/21 21:00 03/17/21 20:48 Ethosuximide PO Not Given BID [facility] Ondansetron HCl 4 mg 03/17/21 17:17 Ondansetron Odt 4 Mg Tab PO Q6H PRN Nausea Pantoprazole Sodium 40 mg 03/18/21 07:30 Pantoprazole 40 Mg Tablet PO AC-BRKFST [facility] Verapamil HCl 240 mg 03/17/21 21:00 03/17/21 20:42 Verapamil Sr 240 Mg Tablet.Er PO 240 mg HS JILL Administration Intake and Output 03/17/21 03/18/21 03/18/21 22:59 06:59 14:59 Intake Total 500 0 Balance 500 0 Intake: Oral 500 0 Other: Voiding Method Toilet # Voids 1 2 03/17/21 09:29 03/17/21 09:29
--- NOTE | 2021-03-18 13:09 | P.STRESS ---
- Stress Test Note Stress Test Results/Findings: Exam Performed: dobutamine stress echo Exam Date: 03/18/21 Reason for Exam: Chest Pain Height: 5 ft 1 in Weight: 50.8 kg Protocol: Dobutamine Stage: 40 Duration of Exercise: 10:11 Resting Heart Rate: 69 Resting Blood Pressure: 139/85 Maximum Achieved Heart Rate: 153 Maximum Achieved Blood Pressure: 149/85 85% PMHR: 145 100% PMHR: 170 METS: na Technologist Comment: Stress Test Results/Findings: Abnormal ECG at baseline with a 0.[address] depression inferior laterally During dobutamine infusion occasional PVCs noted [address] depression during peak dobutamine infusion [address] depression the recovery No sustained or nonsustained arrhythmias Baseline 2-D echo images showed normal LV systolic function without any segmental wall motion abnormalities During dobutamine infusion there was stepwise increment in overall LV contractility without development of any wall motion abnormalities @Recovery region global LV systolic function with normal Impression Abnormal ECG response but with Baseline ECG abnormalities that reduce the specificity of the abnormality No echocardiographic evidence for ischemia during dobutamine infusion
[2021-03-18 15:50] VITALS: BP 117/77; PULSE 67; RESP 15
--- NOTE | 2021-03-18 18:19 | P.DS ---
Providers Date of admission: 03/17/21 12:06 Expected date of discharge: 03/18/21 Attending physician: Alexey Grant Consults: 03/17/21 12:06 Consult Physician Urgent Consulting Provider: [facility] Consult Reason/Comments: Chest pain Do you want consulting provider notified?: Yes Primary care physician: Young Palmer [facility] Course: Chief Complaint: Chest pain History of presenting complaint: This is a very pleasant 50-year-old patient of Dr. Palmer. Chronic stable medical conditions include hypertension, diverticulosis, migraines,. Patient did have a negative cardiac catheterization in 2011. Patient does follow with the neurologist from [facility] called . Patient has a diagnosis of abscess and grand mal seizures. She's had trouble taking antiseizure medications in the past. Of late she been having about 4-5 seizures a month. In fact she had one just before 5 walked in the room and she had taken her on Klonopin and sees a subsided. She was having an aura before that. That could include having hiccups or nausea. at the bedside. Since yesterday patient noticed a sharp pain in the lower sternal area and below the left rib cage. Present off and on. Patient also felt some tingling in the hands and legs. Normally patient has a good excess tolerance. No dizziness no lightheadedness. Did also looking into new antiseizure medications and medication other than shortness of protocol with the same. Patient occasionally gets reflux symptoms. March 18: Patient underwent dobutamine stress echocardiogram. Nurse called me that the patient stress echocardiogram was reported to be negative. Diagnosis felt to be musculoskeletal. Discharged home. Consultation: [facility] Past medical history to include: Hypertension, grand mal/absence seizures, diverticulosis, migraine Social history: . No history of smoking and alcohol. Family history: myocardial infarction, hypertension Physical examination: VITAL SIGNS: 97.9, 67, 15, 117 x 37, 100% room air GENERAL: laying in bed, awake comfortable. EYES: Pupils equal. Conjunctiva normal. NECK: JVD not raised; masses not palpable. HEART: First and second heart sounds are normal; no edema. LUNGS: Respiratory rate normal; clear to auscultation. CHEST wall: Some reproducible pain in the lower sternum and in the medial part of the rib cage ABDOMEN: Soft, nontender, liver spleen not palpable, no masses palpable. PSYCH: Alert and oriented x3; mood and affect normal. INVESTIGATIONS, reviewed in the clinical context: White count 4.5 hemoglobin 15 platelets 200 potassium 4 BUN 12 creatinine 0.91 Troponin I less than 0.0123 EKG tracing personally reviewed by me-nonspecific ST segment changes Chest x-ray film personally reviewed by me-lung gao clear Assessment and plan: -Anterior chest wall pain with some reproducibility. Likely costochondritis -Tonic-clonic and absence seizures. Somewhat uncontrolled. Patient had 4-5 episodes a month. Normally controlled with Klonopin. Patient looking into new antiseizure medications. Discussed with the patient and -GERD Omeprazole 20 mg daily -Essential hypertension trandolapril/verapamil/250 one tablet daily at bedtime -Chronic, colonic diverticulosis Asymptomatic Disposition: Home Patient Condition at Discharge: Good Plan - Discharge Summary Discharge Rx Participant: No New Discharge Prescriptions: Continue Ethosuximide [Zarontin] 250 mg PO BID Omeprazole 20 mg PO DAILY Butalb/Acetaminophen/Caffeine [Fioricet 50-300-40 mg Capsule] 1 cap PO Q6H PRN PRN Reason: Migraine Headache diphenhydrAMINE HCL [Benadryl] 25 mg PO BID PRN PRN Reason: Allergy Symptoms Ibuprofen [Motrin] 400 mg PO BID PRN PRN Reason: Pain clonazePAM [KlonoPIN] 0.5 mg PO BID Trandolapril/Verapamil HCl [Trandolapr-Verapam ER 4-240 mg] 1 tab PO HS Labetalol [Trandate] 100 mg PO DIRECTED PRN PRN Reason: blood pressure spike acetaZOLAMIDE [Diamox] 250 mg PO BID Cholecalciferol [Vitamin D3 (25 Mcg = 1000 Iu)] 25 mcg PO HS Aspirin EC [Ecotrin Low Dose] 81 mg PO DAILY Ondansetron Odt [Zofran ODT] 4 mg PO Q6H PRN PRN Reason: Nausea Discharge Medication List Ethosuximide [Zarontin] 250 mg PO BID 04/19/14 [History] Omeprazole 20 mg PO DAILY 12/14/15 [History] Butalb/Acetaminophen/Caffeine [Fioricet 50-300-40 mg Capsule] 1 cap PO Q6H PRN 07/17/16 [History] Ibuprofen [Motrin] 400 mg PO BID PRN 07/17/16 [History] diphenhydrAMINE HCL [Benadryl] 25 mg PO BID PRN 07/17/16 [History] clonazePAM [KlonoPIN] 0.5 mg PO BID 01/03/18 [History] Labetalol [Trandate] 100 mg PO DIRECTED PRN 11/17/19 [History] Trandolapril/Verapamil HCl [Trandolapr-Verapam ER 4-240 mg] 1 tab PO HS 11/17/19 [History] Aspirin EC [Ecotrin Low Dose] 81 mg PO DAILY 12/14/20 [History] Cholecalciferol [Vitamin D3 (25 Mcg = 1000 Iu)] 25 mcg PO HS 12/14/20 [History] Ondansetron Odt [Zofran ODT] 4 mg PO Q6H PRN 12/14/20 [History] acetaZOLAMIDE [Diamox] 250 mg PO BID 12/14/20 [History] Follow up Appointment(s)/Referral(s): cardiology, [Other] - 4 Weeks own-radiologist, [Other] - 1 Week Young Palmer MD [Primary Care Provider] - 1-2 days Patient Instructions/Handouts: Chest Pain (DC), Epilepsy (DC) Activity/Diet/Wound Care/Special Instructions: no driving; seizure precautions Discharge Disposition: HOME SELF-CARE
[2021-03-19 13:23] LABS: Chol/HDL Ratio 2.38; LDL Cholesterol,Calculated 115.4 mg/dL (0.0-131.0); VLDL Calculation 22.6 mg/dL (5.00-40.00)
== END 2021-03-18 16:46 | disposition home or self-care (01) ==
LOC: EC 08:59 → 6NMEDSUR 12:06
PROVIDERS: ADMIT Hospitalist; ATTEND Hospitalist
DX: R07.89 Other chest pain (principal); G40.409 Other generalized epilepsy and epileptic syndromes, not intractable, without status epilepticus; G40.A09 Absence epileptic syndrome, not intractable, without status epilepticus; Z86.69 Personal history of other diseases of the nervous system and sense organs; K21.9 Gastro-esophageal reflux disease without esophagitis; I10 Essential (primary) hypertension; K57.30 Diverticulosis of large intestine without perforation or abscess without bleeding; I25.10 Atherosclerotic heart disease of native coronary artery without angina pectoris; K44.9 Diaphragmatic hernia without obstruction or gangrene; Z79.82 Long term (current) use of aspirin; Z79.899 Other long term (current) drug therapy; Z88.0 Allergy status to penicillin; Z88.1 Allergy status to other antibiotic agents; Z86.73 Personal history of transient ischemic attack (TIA), and cerebral infarction without residual deficits; Z87.01 Personal history of pneumonia (recurrent); Z90.710 Acquired absence of both cervix and uterus; Z82.49 Family history of ischemic heart disease and other diseases of the circulatory system
CPT/HCPCS: 99285; 93005 ×2; 96361; 96374; 36415; 93306; 93351; 85379; 80061; 80053; 83735; 84484; 85025; 85610; 85730; 71046; G0378 ×2; J1250; J2405

== ENCOUNTER 2022-06-30 12:16 | Emergency (ER) | payer MEDICARE ==
[2022-06-30] MEDS ORDERED: ONDANSETRON 4 MG/2 ML VIAL IVP STA (12:43)
[2022-06-30] MEDS ORDERED: MORPHINE SULFATE 4 MG/ML SYRINGE IV STA (12:43)
[2022-06-30] MEDS ORDERED: SODIUM CHLORIDE 0.9% 1,000 ML IV STA (12:43)
--- NOTE | 2022-06-30 12:59 | ED ---
General Adult HPI - General Chief complaint: Abdominal Pain Stated complaint: Abd Pain Time Seen by Provider: 06/30/22 12:33 Source: patient, RN notes reviewed, old records reviewed Mode of arrival: ambulatory Limitations: no limitations - History of Present Illness Initial comments: Patient is a 52-year-old female with past medical history remarkable for hypertension, seizure disorder, hysterectomy who presents emergency Department with a four-day history of right lower quadrant abdominal pain, nausea, vomiting. Pain is worsening. She was seen at another emergency department to 3 days ago, and workup including CT imaging revealed colitis. She is discharged home with Maylinyl. States the pain is not improved and if anything has worsened. States she intermittently will get pain radiating towards her epigastric region as well. States she has not had this pain previously. Denies being . Does have a history of ovarian cysts. Does have a history of kidney stones. Denies any hematuria, dysuria. Denies any chest pain or shortness of breath. Denies any fevers or cough. Denies diarrhea. States emesis is nonbloody. His no other acute complaint at this time. Presents with her over concern for worsening right lower quadrant abdominal pain with the nausea and vomiting. - Related Data Home Medications Medication Instructions Recorded Confirmed Ethosuximide [Zarontin] 250 mg PO BID 04/19/14 03/17/21 Butalb/Acetaminophen/Caffeine 1 cap PO Q6H PRN 07/17/16 03/17/21 [Fioricet 50-300-40 mg Capsule] Ibuprofen [Motrin] 400 mg PO BID PRN 07/17/16 03/17/21 diphenhydrAMINE HCL [Benadryl] 25 mg PO BID PRN 07/17/16 03/17/21 clonazePAM [KlonoPIN] 0.5 mg PO BID 01/03/18 03/17/21 Trandolapril/Verapamil HCl 1 tab PO HS 11/17/19 03/17/21 [Trandolapr-Verapam ER 4-240 mg] Aspirin EC [Ecotrin Low Dose] 81 mg PO DAILY 12/14/20 03/17/21 Cholecalciferol [Vitamin D3 (25 25 mcg PO HS 12/14/20 03/17/21 Mcg = 1000 Iu)] Ondansetron Odt [Zofran ODT] 4 mg PO Q6H PRN 12/14/20 03/17/21 Albuterol Inhaler [Ventolin Hfa 2 puff INHALATION RT-QID PRN 06/30/22 06/30/22 Inhaler] Diclofenac Sodium [Voltaren] 75 mg PO BID 06/30/22 06/30/22 Dicyclomine [Bentyl] 10 mg PO Q8H PRN 06/30/22 06/30/22 Allergies Allergy/AdvReac Type Severity Reaction Status Date / Time erythromycin base Allergy Rash/Hives Verified 06/30/22 16:13 [Erythromycin Base] on chest erythromycin lactobionate Allergy Rash/Hives Verified 06/30/22 16:13 [From Erythrocin] on chest Tetracyclines Allergy Rash/Hives Verified 06/30/22 16:13 amoxicillin [Amoxicillin] AdvReac Headache/Na Verified 06/30/22 16:13 usea Review of Systems ROS Statement: Those systems with pertinent positive or pertinent negative responses have been documented in the HPI. Review of Systems: CONST: Denies fever EYES: Denies blurry vision ENT: Denies nasal congestion C/V: Denies Chest pain RESP: Denies shortness of breath GI: Endorses abdominal pain. : Denies dysuria SKIN: Denies rash. MSK: Denies joint pain. NEURO: Denies headache ROS Other: All systems not noted in ROS Statement are negative. Past Medical History Past Medical History: CVA/TIA, Hypertension, Pneumonia, Seizure Disorder Additional Past Medical History / Comment(s): Questionable history of mini strokes/TIA, frequent PVCs, gastritis and diverticulosis,small hiatal hernia, migraines, sinus problems, hx of siezures since age 8 yrs and last siezure was 01/16/21. History of Any Multi-Drug Resistant Organisms: None Reported Past Surgical History: Heart Catheterization, Hysterectomy Additional Past Surgical History / Comment(s): Pt had normal cardiac cath in 2011, upper and lower endoscopies Apr 2014 which showed diverticulosis and gastitis and small hiatal hernia Past Anesthesia/Blood Transfusion Reactions: Motion Sickness, Postoperative Nausea & Vomiting (PONV) Past Psychological History: No Psychological Hx Reported Smoking Status: Never smoker Past Alcohol Use History: None Reported Past Drug Use History: None Reported - Past Family History Mother Family Medical History: Hypertension, Myocardial Infarction (MS) Additional Family Medical History / Comment(s): Pt states she had two heart attacks, and is now Father Family Medical History: Unable to Obtain Additional Family Medical History / Comment(s): Pt did not know her father-she was raised by mother and stepfather. General Exam - General Exam Comments Initial Comments: General: Appears in no acute distress. HEAD: Normal with no signs of head trauma. EYES: PERRLA, EOMI, conjunctiva normal, no discharge. ENT: Hearing grossly intact, normal oropharynx. RESPIRATORY: Clear breath sounds bilaterally. No wheezes, rales, or rhonchi. C/V: Regular rate and rhythm. S1 and S2 auscultated, no edema, peripheral pulses 2+ and intact throughout ABD: Abdomen is soft, nondistended. Tender to palpation in the right lower quadrant, periumbilical and epigastric region. No guarding. No rebound tenderness. No peritoneal signs. No CVA tenderness to percussion. Mild right flank pain as well. EXT: Normal range of motion, no obvious deformity SKIN: No rashes or lesions observed on exposed skin. NEURO: Alert and oriented 4. Limitations: no limitations Course Vital Signs 06/30/22 06/30/22 12:29 14:24 Temperature 97.9 F Pulse Rate 81 70 Respiratory 18 22 Rate Blood Pressure 138/93 174/94 O2 Sat by Pulse 98 99 Oximetry Medical Decision Making - Medical Decision Making Based on the patient's presentation and physical exam, I am concerned for acute intra-abdominal process for the patient's current symptoms. Differential includes but is not limited to appendicitis, nephrolithiasis, colitis. We will obtain abdominal laboratory studies as well as a screening EKG to started. We'll also obtain a KUB x-ray as well as ultrasound of the kidneys and bladder. Vital signs within acceptable limits. Patient will be given symptomatic treatment with IV analgesia, antiemetics and fluids. She was in agreement this plan. EKG shows no signs of acute ischemia. KUB x-ray as interpreted by myself reveals no evidence of acute intra-abdominal process. Ultrasound of the kidneys and bladder as well as gallbladder showed no acute process. There is a simple cyst on the right kidney which is unlikely the source of her current symptoms. Patient's laboratory studies are remarkable for slightly elevated liver function tests, alk phos which are somewhat chronic for the patient when I ask. Urinalysis is a contaminated catch. The remainder of the laboratory studies are unremarkable including a normal lactic acid. On reevaluation, I did discuss with the patient her workup. At this time I would like to obtain a CT on pelvis with contrast. She was in agreement this plan. CT is interpreted by myself reveals findings consistent with colitis. Patient does have diverticuli but they do not appear to be inflamed or infected at this time. I updated the patient at this time. As she appears to have colitis, with intractable nausea and vomiting, did offer admission for IV fluids and continued therapy. She was in agreement this plan. I spoke with the admitting team, Dr. Cho who is covering for Dr. Grant. Patient will be admitted in stable condition. - Lab Data Result diagrams: 06/30/22 13:04 06/30/22 13:04 Lab Results 06/30/22 06/30/22 06/30/22 Range/Units 13:04 13:04 13:04 WBC 6.3 (3.8-10.6) k/uL RBC 4.36 (3.80-5.40) m/uL Hgb 13.9 (11.4-16.0) gm/dL Hct 40.6 (34.0-46.0) % MCV 93.0 (80.0-100.0) fL MCH 32.0 (25.0-35.0) pg MCHC 34.3 (31.0-37.0) g/dL RDW 12.2 (11.5-15.5) % Plt Count 208 (150-450) k/uL MPV 8.4 Neutrophils % 79 % Lymphocytes % 16 % Monocytes % 3 % Eosinophils % 0 % Basophils % 0 % Neutrophils # 5.0 (1.3-7.7) k/uL Lymphocytes # 1.0 (1.0-4.8) k/uL Monocytes # 0.2 (0-1.0) k/uL Eosinophils # 0.0 (0-0.7) k/uL Basophils # 0.0 (0-0.2) k/uL Sodium 141 (137-145) mmol/L Potassium 3.8 (3.5-5.1) mmol/L Chloride 105 (98-107) mmol/L Carbon Dioxide 29 (22-30) mmol/L Anion Gap 7 mmol/L BUN 6 L (7-17) mg/dL Creatinine 0.65 (0.52-1.04) mg/dL Est GFR (CKD-EPI)AfAm >90 (>60 ml/min/1.73 sqM) Est GFR (CKD-EPI)NonAf >90 (>60 ml/min/1.73 sqM) Glucose 138 H (74-99) mg/dL Plasma Lactic Acid Ronnell (0.7-2.0) mmol/L Calcium 9.0 (8.4-10.2) mg/dL Total Bilirubin 0.6 (0.2-1.3) mg/dL AST 179 H (14-36) U/L ALT 246 H (4-34) U/L Alkaline Phosphatase 226 H (38-126) U/L Total Protein 7.1 (6.3-8.2) g/dL Albumin 4.3 (3.5-5.0) g/dL Amylase 63 (30-110) U/L Lipase 88 (23-300) U/L Urine Color Yellow Urine Appearance Cloudy H (Clear) Urine pH 5.5 (5.0-8.0) Ur Specific [place] 1.019 (1.001-1.035) Urine Protein Trace H (Negative) Urine Glucose (UA) Negative (Negative) Urine Ketones Negative (Negative) Urine Blood Negative (Negative) Urine Nitrite Negative (Negative) Urine Bilirubin Negative (Negative) Urine Urobilinogen 2.0 (<2.0) mg/dL Ur Leukocyte Esterase Negative (Negative) Urine RBC 1 (0-5) /hpf Urine WBC 4 (0-5) /hpf Ur Squamous Epith Cells 14 H (0-4) /hpf Hyaline Casts 12 H (0-2) /lpf Urine Mucus Occasional H (None) /hpf 06/30/22 Range/Units 13:04 WBC (3.8-10.6) k/uL RBC (3.80-5.40) m/uL Hgb (11.4-16.0) gm/dL Hct (34.0-46.0) % MCV (80.0-100.0) fL MCH (25.0-35.0) pg MCHC (31.0-37.0) g/dL RDW (11.5-15.5) % Plt Count (150-450) k/uL MPV Neutrophils % % Lymphocytes % % Monocytes % % Eosinophils % % Basophils % % Neutrophils # (1.3-7.7) k/uL Lymphocytes # (1.0-4.8) k/uL Monocytes # (0-1.0) k/uL Eosinophils # (0-0.7) k/uL Basophils # (0-0.2) k/uL Sodium (137-145) mmol/L Potassium (3.5-5.1) mmol/L Chloride (98-107) mmol/L Carbon Dioxide (22-30) mmol/L Anion Gap mmol/L BUN (7-17) mg/dL Creatinine (0.52-1.04) mg/dL Est GFR (CKD-EPI)AfAm (>60 ml/min/1.73 sqM) Est GFR (CKD-EPI)NonAf (>60 ml/min/1.73 sqM) Glucose (74-99) mg/dL Plasma Lactic Acid Ronnell 0.8 (0.7-2.0) mmol/L Calcium (8.4-10.2) mg/dL Total Bilirubin (0.2-1.3) mg/dL AST (14-36) U/L ALT (4-34) U/L Alkaline Phosphatase (38-126) U/L Total Protein (6.3-8.2) g/dL Albumin (3.5-5.0) g/dL Amylase (30-110) U/L Lipase (23-300) U/L Urine Color Urine Appearance (Clear) Urine pH (5.0-8.0) Ur Specific [place] (1.001-1.035) Urine Protein (Negative) Urine Glucose (UA) (Negative) Urine Ketones (Negative) Urine Blood (Negative) Urine Nitrite (Negative) Urine Bilirubin (Negative) Urine Urobilinogen (<2.0) mg/dL Ur Leukocyte Esterase (Negative) Urine RBC (0-5) /hpf Urine WBC (0-5) /hpf Ur Squamous Epith Cells (0-4) /hpf Hyaline Casts (0-2) /lpf Urine Mucus (None) /hpf - EKG Data -: EKG Interpreted by Me EKG Comments: 12-lead Electrocardiogram Interpretation Note EKG was reviewed and interpreted by myself. 12-lead ECG performed at 1352 is interpreted by me as revealing normal sinus rhythm at a rate of 69 beats per minute. [place] is normal. [place] interval is 116 ms, QRS duration is 88 ms, QTc is 417 ms.. There were no ST or T wave abnormalities to suggest myocardial ischemia or injury. R wave progression across the precordium was satisfactory. By my interpretation this EKG is non-diagnostic for acute ischemia. When compared with EKG from March 2021, no significant change. Disposition Clinical Impression: Abdominal pain, Intractable nausea and vomiting, Colitis Disposition: ADMITTED IP TO THIS HOSP Condition: Stable Referrals: Young Palmer MD [Primary Care Provider] - 1-2 days Time of Disposition: 16:00
[2022-06-30 13:20] LABS: Basophils % (A) 0 %; Eosinophils % (A) 0 %; HCT 40.6 % (34.0-46.0); HGB 13.9 gm/dL (11.4-16.0); Lymphocytes % (A) 16 %; MCHC 34.3 g/dL (31.0-37.0); Mean Platelet Volume 8.4; Monocytes # (A) 0.2 k/uL (0-1.0); Monocytes % (A) 3 %; Neutrophils % (A) 79 %; Platelet Count 208 k/uL (150-450); RBC 4.36 m/uL (3.80-5.40); RDW 12.2 % (11.5-15.5); WBC 6.3 k/uL (3.8-10.6)
--- NOTE | 2022-06-30 13:31 | XR ---
EXAMINATION TYPE: XR KUB DATE OF EXAM: 06/30/2022 1:15 PM CLINICAL HISTORY: Abdominal pain and vomiting TECHNIQUE: Two Upright KUB images of the abdomen are obtained. COMPARISON: CT abdomen and pelvis 2013 FINDINGS: Some paucity of bowel gas. Scattered gas in nondistended small bowel loops. Gas seen in non distended colon. A few scattered air-fluid levels. No free air. Pelvic phleboliths are present. The l marian bases are clear and the osseous structures are intact. IMPRESSION: Overall nonspecific but favor bowel gas pattern.
[2022-06-30 13:32] LABS: ALT 246 U/L (4-34); AST 179 U/L (14-36); African American GFR (CKD) >90 (>60 ml/min/1.73 sqM); Albumin 4.3 g/dL (3.5-5.0); Alkaline Phosphatase 226 U/L (38-126); Amylase 63 U/L (30-110); Anion Gap 7 mmol/L; Blood Urea Nitrogen 6 mg/dL (7-17); Carbon Dioxide 29 mmol/L (22-30); Chloride 105 mmol/L (98-107); Glucose 138 mg/dL (74-99); Lipase 88 U/L (23-300); Non-African American GFR(CKD) >90 (>60 ml/min/1.73 sqM); Potassium 3.8 mmol/L (3.5-5.1); Sodium 141 mmol/L (137-145); Total Bilirubin 0.6 mg/dL (0.2-1.3); Total Protein 7.1 g/dL (6.3-8.2)
[2022-06-30 13:40] LABS: Appearance,Urine Cloudy (Clear); Bilirubin,Urine Negative (Negative); Blood,Urine Negative (Negative); Color,Urine Yellow; Glucose,Urine (UA) Negative (Negative); Hyaline Casts,Urine 12 /lpf (0-2); Ketones,Urine Negative (Negative); Leukocyte Esterase,Urine Negative (Negative); Mucus,Urine Occasional /hpf; Nitrite,Urine Negative (Negative); PH, Urine 5.5 (5.0-8.0); Protein,Urine Trace (Negative); RBC,Urine 1 /hpf (0-5); Specific Gravity,Urine 1.019 (1.001-1.035); Squamous Epithelial Cell,Urine 14 /hpf (0-4); WBC,Urine 4 /hpf (0-5)
--- NOTE | 2022-06-30 13:57 | US ---
EXAMINATION TYPE: US kidneys/renal and bladder DATE OF EXAM: 06/30/2022 COMPARISON: NONE CLINICAL HISTORY: rlq/flank pain. Eval for hydronephrosis. EXAM MEASUREMENTS: Right Kidney: 10.1 x 4.5 x 4.0 cm Left Kidney: 10.3 x 5.2 x 4.4 cm Right Kidney: lateral cyst measuring 1.2 x 1.2 x 1.2cm Left Kidney: wnl as seen somewhat obscured by overlying bowel gas Bladder: not fully distended. There is no evidence for hydronephrosis at this point in time. No nephrolithiasis is seen. The urina ry bladder is limited due to incomplete distention. Bilateral ureteral jets are seen. IMPRESSION: No hydronephrosis or nephrolithiasis. 1.2 cm right renal simple appearing cyst.
[2022-06-30] MEDS ORDERED: MORPHINE SULFATE 4 MG/ML SYRINGE IVP STA (14:29)
--- NOTE | 2022-06-30 14:31 | US ---
EXAMINATION TYPE: US gallbladder DATE OF EXAM: 06/30/2022 COMPARISON: NONE CLINICAL HISTORY: abd pain, n/v. TECHNIQUE: Multiple sonographic images of the right upper quadrant are obtained. FINDINGS: EXAM MEASUREMENTS: Liver Length: 13.8 cm Gallbladder Wall: 0.1 cm CBD: 0.3 cm Right Kidney: 10.1 x 4.5 x 4.8cm CORE DRILLER NOTES: Pancreas: wnl Liver: wnl Gallbladder: wnl Evidence for sonographic Jeffrey's sign: no CBD: wnl Right Kidney: No hydronephrosis. IMPRESSION: No acute process
--- NOTE | 2022-06-30 15:45 | CT ---
EXAMINATION: CT ABDOMEN AND PELVIS WITH IV CONTRAST DATE OF EXAMINATION: 06/30/2022. COMPARISON: None available. INDICATION: Elbow pain. PROCEDURE: Axial CT of the abdomen and pelvis was performed with contrast and sagittal and coronal reformatted images were performed. CT dose lowering techniques were used, to include: automated expos ure control, adjustment for patient size, and/or use of iterative reconstruction. 70 mL of Isovue 300 was given intravenously. FINDINGS: LOWER CHEST : The visualized lung bases are clear. There are no pleural or pericardial effusions. ABDOMEN: Liver and Biliary system: Normal. Adrenal glands: Normal. Kidneys and ureters: There is a subcentimeter hypodensity in the right kidney was too small fully mago racterize. The kidneys otherwise appear unremarkable Spleen: Normal. Pancreas: Normal. Gallbladder: Normal. Lymph nodes, Peritoneum and mesentery: There is no mesenteric or retroperitoneal lymphadenopathy. Gastrointestinal tract: There are no dilated loops of bowel or free intraperitoneal air. Is normal. There is thickening of the colonic wall extending from the descending colon through the si gmoid colon which is compatible with a colitis. There are several colonic diverticuli, however this a ppears to represent a colitis rather than diverticulitis and is likely inflammatory or infectious. Fo llow to resolution is recommended to exclude underlying malignancy. Aorta/IVC: No aortic aneurysm. 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 Abdominal wall: Normal. PELVIS: Fluid: There is no free fluid in the pelvis. Lymph Nodes: There is no pelvic or inguinal lymphadenopathy.. Urinary bladder: Normal. BONES: Scattered degenerative facet changes are seen throughout the spine.. ADDITIONAL SIGNIFICANT FINDINGS: None. IMPRESSION: 1. Colitis involving the descending and sigmoid colon is likely inflammatory or infectious. Malignanc y is felt to be much less likely, however not excluded and follow to resolution is recommended. 2. No additional acute findings identified.
[2022-06-30] MEDS ORDERED: NALOXONE 0.4 MG/ML 1 ML VIAL IV PRN (16:12)
[2022-06-30] MEDS ORDERED: ONDANSETRON 4 MG/2 ML VIAL IVP PRN (16:12)
[2022-06-30] MEDS ORDERED: MORPHINE SULFATE 4 MG/ML SYRINGE IV PRN (16:12)
[2022-06-30] MEDS ORDERED: SODIUM CHLORIDE 0.9% 1,000 ML IV SCH (16:15)
--- NOTE | 2022-06-30 16:58 | ED ---
Medical Decision Making - Medical Decision Making Patient was admitted for intractable nausea, vomiting, abdominal pain. Shortly after patient was admitted, patient did have a large, brown bowel movement. She states that her pain has completely resolved. She feels improved. She would like to go home. I do believe this is reasonable. We did discuss antibiotics, and she does have colitis on her computed tomography scan with a history diverticulosis. We will empirically treat with ciprofloxacin and Flagyl at this time. She was in agreement this plan. Strict return precautions were discussed. She'll be discharged home at this time. I notified Dr. Cho, who expressed understanding the patient will be discharged home. I will provide the patient with a prescription for Flagyl, ciprofloxacin. I instructed the patient to follow up with their PCP in the next 1-3 days. I explained that the patient should return to the emergency department if they experience any worsening symptoms. Strict return precautions were discussed with the patient. The patient expressed understanding of these instructions. I an swered all questions that the patient had. The patient was discharged home in good condition with their prescriptions and follow up information. - Lab Data Result diagrams: 06/30/22 13:04 06/30/22 13:04 Lab Results 06/30/22 06/30/22 06/30/22 Range/Units 13:04 13:04 13:04 WBC 6.3 (3.8-10.6) k/uL RBC 4.36 (3.80-5.40) m/uL Hgb 13.9 (11.4-16.0) gm/dL Hct 40.6 (34.0-46.0) % MCV 93.0 (80.0-100.0) fL MCH 32.0 (25.0-35.0) pg MCHC 34.3 (31.0-37.0) g/dL RDW 12.2 (11.5-15.5) % Plt Count 208 (150-450) k/uL MPV 8.4 Neutrophils % 79 % Lymphocytes % 16 % Monocytes % 3 % Eosinophils % 0 % Basophils % 0 % Neutrophils # 5.0 (1.3-7.7) k/uL Lymphocytes # 1.0 (1.0-4.8) k/uL Monocytes # 0.2 (0-1.0) k/uL Eosinophils # 0.0 (0-0.7) k/uL Basophils # 0.0 (0-0.2) k/uL Sodium 141 (137-145) mmol/L Potassium 3.8 (3.5-5.1) mmol/L Chloride 105 (98-107) mmol/L Carbon Dioxide 29 (22-30) mmol/L Anion Gap 7 mmol/L BUN 6 L (7-17) mg/dL Creatinine 0.65 (0.52-1.04) mg/dL Est GFR (CKD-EPI)AfAm >90 (>60 ml/min/1.73 sqM) Est GFR (CKD-EPI)NonAf >90 (>60 ml/min/1.73 sqM) Glucose 138 H (74-99) mg/dL Plasma Lactic Acid Ronnell (0.7-2.0) mmol/L Calcium 9.0 (8.4-10.2) mg/dL Total Bilirubin 0.6 (0.2-1.3) mg/dL AST 179 H (14-36) U/L ALT 246 H (4-34) U/L Alkaline Phosphatase 226 H (38-126) U/L Total Protein 7.1 (6.3-8.2) g/dL Albumin 4.3 (3.5-5.0) g/dL Amylase 63 (30-110) U/L Lipase 88 (23-300) U/L Urine Color Yellow Urine Appearance Cloudy H (Clear) Urine pH 5.5 (5.0-8.0) Ur Specific [place] 1.019 (1.001-1.035) Urine Protein Trace H (Negative) Urine Glucose (UA) Negative (Negative) Urine Ketones Negative (Negative) Urine Blood Negative (Negative) Urine Nitrite Negative (Negative) Urine Bilirubin Negative (Negative) Urine Urobilinogen 2.0 (<2.0) mg/dL Ur Leukocyte Esterase Negative (Negative) Urine RBC 1 (0-5) /hpf Urine WBC 4 (0-5) /hpf Ur Squamous Epith Cells 14 H (0-4) /hpf Hyaline Casts 12 H (0-2) /lpf Urine Mucus Occasional H (None) /hpf 06/30/22 Range/Units 13:04 WBC (3.8-10.6) k/uL RBC (3.80-5.40) m/uL Hgb (11.4-16.0) gm/dL Hct (34.0-46.0) % MCV (80.0-100.0) fL MCH (25.0-35.0) pg MCHC (31.0-37.0) g/dL RDW (11.5-15.5) % Plt Count (150-450) k/uL MPV Neutrophils % % Lymphocytes % % Monocytes % % Eosinophils % % Basophils % % Neutrophils # (1.3-7.7) k/uL Lymphocytes # (1.0-4.8) k/uL Monocytes # (0-1.0) k/uL Eosinophils # (0-0.7) k/uL Basophils # (0-0.2) k/uL Sodium (137-145) mmol/L Potassium (3.5-5.1) mmol/L Chloride (98-107) mmol/L Carbon Dioxide (22-30) mmol/L Anion Gap mmol/L BUN (7-17) mg/dL Creatinine (0.52-1.04) mg/dL Est GFR (CKD-EPI)AfAm (>60 ml/min/1.73 sqM) Est GFR (CKD-EPI)NonAf (>60 ml/min/1.73 sqM) Glucose (74-99) mg/dL Plasma Lactic Acid Ronnell 0.8 (0.7-2.0) mmol/L Calcium (8.4-10.2) mg/dL Total Bilirubin (0.2-1.3) mg/dL AST (14-36) U/L ALT (4-34) U/L Alkaline Phosphatase (38-126) U/L Total Protein (6.3-8.2) g/dL Albumin (3.5-5.0) g/dL Amylase (30-110) U/L Lipase (23-300) U/L Urine Color Urine Appearance (Clear) Urine pH (5.0-8.0) Ur Specific [place] (1.001-1.035) Urine Protein (Negative) Urine Glucose (UA) (Negative) Urine Ketones (Negative) Urine Blood (Negative) Urine Nitrite (Negative) Urine Bilirubin (Negative) Urine Urobilinogen (<2.0) mg/dL Ur Leukocyte Esterase (Negative) Urine RBC (0-5) /hpf Urine WBC (0-5) /hpf Ur Squamous Epith Cells (0-4) /hpf Hyaline Casts (0-2) /lpf Urine Mucus (None) /hpf Disposition Clinical Impression: Abdominal pain, Intractable nausea and vomiting, Colitis Disposition: HOME SELF-CARE Condition: Good Instructions (If sedation given, give patient instructions): Colitis (ED) Prescriptions: Ciprofloxacin HCl [Cipro] 500 mg PO Q12HR 5 Days #10 tab metroNIDAZOLE [Flagyl] 500 mg PO TID 5 Days #15 tab Is patient prescribed a controlled substance at d/c from ED?: No Referrals: Young Palmer MD [Primary Care Provider] - 1-2 days Time of Disposition: 16:35
[2022-06-30 18:16] VITALS: BP 176/95; PULSE 83; RESP 18; TEMP 98.8
[2022-07-01] MEDS ORDERED: HEPARIN SODIUM,PORCINE/PF 5,000 UNIT/0.5 ML SYRINGE SQ SCH
--- NOTE | 2022-07-01 00:44 | CONS ---
CONSULTATION REASON FOR CONSULTATION: Advice regarding seizure disorder and other medical issues, requested by Surgery. HISTORY OF PRESENT ILLNESS: This is a 52-year-old woman with a past medical history of multiple medical problems including seizure disorder, was admitted with abdominal pain. The patient is being evaluated for cholecystitis. The patient has weakness mostly on the right mid and lower quadrant. There is no history of any fever, rigors, or chills at this time. PAST MEDICAL HISTORY: History of CVA, TIA, hypertension, pneumonia, seizure disorder. HOME MEDICATIONS: Reviewed include Klonopin, doses and rest of medication noted. ALLERGIES: Reviewed include amoxicillin. FAMILY HISTORY: History of hypertension, myocardial infarction. SOCIAL HISTORY: No history of smoking or alcohol intake. REVIEW OF SYSTEMS: A 14-point review of systems is negative except as mentioned earlier. PHYSICAL EXAMINATION: VITAL SIGNS: Pulse is 81, blood pressure 130/93, respirations 18. HEENT: Conjunctivae normal. NECK: No JVD. CARDIOVASCULAR: S1, S2 muffled. RESPIRATIONS: Breath sounds diminished at the bases. ABDOMEN: Soft, mild diffuse tenderness in the right side of the abdomen. LEGS: No edema. NERVOUS SYSTEM: No focal deficits. LABS: Reviewed. AST 179, ALT is 246, alkaline phosphatase is 226. ASSESSMENT: 1. Right-sided abdominal pain for evaluation for choledocholithiasis. 2. Seizure disorder. 3. Hypertension. 4. History of pneumonia. 5. History of transient ischemic attacks. RECOMMENDATIONS AND DISCUSSION: This 52-year-old woman presented with multiple complex medical issues. At this time, I recommend to continue with current medications. Continue seizure medications. Further surgical evaluation for the abdominal pain. DVT prophylaxis. Incentive spirometry. Further recommendation to follow. MMODL / IJN: [id number] /
[2022-07-01] MEDS ORDERED: PANTOPRAZOLE 40 MG/10 ML VIAL IV SCH (09:00)
== END 2022-06-30 18:14 | disposition home or self-care (01) ==
LOC: EC 12:16 → UNDOADMOB 16:32 → 6NMEDSUR 16:32 → EC 18:14
DX: R10.9 Unspecified abdominal pain (principal); R11.2 Nausea with vomiting, unspecified; K52.9 Noninfective gastroenteritis and colitis, unspecified; I10 Essential (primary) hypertension; I63.9 Cerebral infarction, unspecified; Z79.82 Long term (current) use of aspirin; Z79.899 Other long term (current) drug therapy; Z88.1 Allergy status to other antibiotic agents; Z88.0 Allergy status to penicillin
CPT/HCPCS: 36415; 93005; 80053; 82150; 83605; 83690; 85025; 81001; 74018; 76770; 76705; 74177; 99285; 96374; 96375; 96376; 96361 ×3; J2270; J2405; Q9967

== ENCOUNTER 2024-11-27 14:14 | Inpatient (IN) | payer MEDICARE ==
[2024-11-27 15:09] LABS: Basophils # (A) 0.02 10*3/uL (0.00-0.10); Basophils % (A) 0.4 %; Eosinophils # (A) 0.01 10*3/uL (0.04-0.35); Eosinophils % (A) 0.2 %; HCT 38.7 % (37.2-46.3); HGB 13.1 g/dL (12.0-15.0); Lymphocytes # (A) 1.71 10*3/uL (0.90-5.00); Lymphocytes % (A) 33.6 %; MCHC 33.9 g/dL (32.0-37.0); MCV 94.6 fL (80.0-97.0); Mean Platelet Volume 10.1 fL (9.5-12.2); Monocytes # (A) 0.25 10*3/uL (0.20-1.00); Monocytes % (A) 4.9 %; Neutrophils % (A) 60.9 %; Platelet Count 203 10*3/uL (140-440); RBC 4.09 10*6/uL (4.10-5.20); RDW 11.8 % (11.5-14.5); WBC 5.09 10*3/uL (4.50-10.00)
--- NOTE | 2024-11-27 15:12 | ED ---
General Adult HPI - General Chief complaint: Neuro Symptoms/Deficit Stated complaint: L side numbness high blood pressure headache Time Seen by Provider: 11/27/24 14:20 Source: patient, RN notes reviewed, old records reviewed Mode of arrival: ambulatory Limitations: no limitations - History of Present Illness Initial comments: This is a 54-year-old female who presents to the emergency department stating that at 10:00 this morning she started having some decreased sensation in her lower leg it was like it was falling asleep. She also noticed weakness to her foot and ankle area thought she might fall down but did not. Patient states that has persisted. Patient states in addition to that she has noticed the whole left side from her face all the way down feels tingly like it is going to go to sleep but has not she has had no other areas of weakness. Patient denies slurred speech or any facial droop. Patient does have a history of seizures and high blood pressure. - Related Data Home Medications Medication Instructions Recorded Confirmed Ethosuximide [Zarontin] 250 mg PO BID 04/19/14 11/27/24 Butalb/Acetaminophen/Caffeine 1 cap PO Q4H PRN 07/17/16 11/27/24 [Fioricet 50-300-40 mg Capsule] diphenhydrAMINE HCL [Benadryl] 50 mg PO HS 07/17/16 11/27/24 clonazePAM [KlonoPIN] 0.5 mg PO BID PRN 01/03/18 11/27/24 Trandolapril/Verapamil HCl 1 tab PO HS 11/17/19 11/27/24 [Trandolapr-Verapam ER 4-240 mg] Aspirin EC [Ecotrin Low Dose] 81 mg PO DAILY 12/14/20 11/27/24 Cholecalciferol [Vitamin D3 (25 25 mcg PO HS 12/14/20 11/27/24 Mcg = 1000 Iu)] Ondansetron Odt [Zofran ODT] 4 mg PO Q6H PRN 12/14/20 11/27/24 Acetaminophen-Codeine 300-30mg 1 tab PO Q4-6H PRN 11/27/24 11/27/24 [Tylenol w/codeine #3] Ascorbic Acid [Vitamin C] 500 mg PO DAILY 11/27/24 11/27/24 Calcium Carbonate [Calcium] 600 mg PO BID 11/27/24 11/27/24 Cyanocobalamin (Vitamin B-12) 2,500 mcg PO DAILY 11/27/24 11/27/24 [Vitamin B-12] Fluticasone Nasal [place] [Flonase 2 spray EA NOSTRIL DAILY PRN 11/27/24 11/27/24 Nasal [place]] Magnesium 200 mg PO HS 11/27/24 11/27/24 [place]-3 Fish Oil 1,400mg 1,400 mg PO HS 11/27/24 11/27/24 Pantoprazole [Protonix] 40 mg PO DAILY 11/27/24 11/27/24 Pyridoxine HCl (Vitamin B6) 100 mg PO DAILY 11/27/24 11/27/24 [Vitamin B-6] acetaZOLAMIDE [Diamox] 250 mg PO BID 11/27/24 11/27/24 Allergies Allergy/AdvReac Type Severity Reaction Status Date / Time erythromycin base Allergy Rash/Hives Verified 11/27/24 16:31 [Erythromycin Base] on chest erythromycin lactobionate Allergy Rash/Hives Verified 11/27/24 16:31 [From Erythrocin] on chest Tetracyclines Allergy Rash/Hives Verified 11/27/24 16:31 amoxicillin [Amoxicillin] AdvReac Headache/Na Verified 11/27/24 16:31 usea Penicillins AdvReac HEADACHES, Verified 11/27/24 16:31 MUSCLE SPASMS Review of Systems ROS Statement: Those systems with pertinent positive or pertinent negative responses have been documented in the HPI. ROS Other: All systems not noted in ROS Statement are negative. Past Medical History Past Medical History: CVA/TIA, Hypertension, Pneumonia, Seizure Disorder Additional Past Medical History / Comment(s): Questionable history of mini strokes/TIA, frequent PVCs, gastritis and diverticulosis,small hiatal hernia, migraines, sinus problems, hx of siezures since age 8 yrs and last siezure was 01/16/21. History of Any Multi-Drug Resistant Organisms: None Reported Past Surgical History: Heart Catheterization, Hysterectomy Additional Past Surgical History / Comment(s): Pt had normal cardiac cath in 2011, upper and lower endoscopies Apr 2014 which showed diverticulosis and gastitis and small hiatal hernia Past Anesthesia/Blood Transfusion Reactions: Motion Sickness, Postoperative Nausea & Vomiting (PONV) Past Psychological History: No Psychological Hx Reported Smoking Status: Never smoker Past Alcohol Use History: None Reported Past Drug Use History: None Reported - Past Family History Mother Family Medical History: Hypertension, Myocardial Infarction (NM) Additional Family Medical History / Comment(s): Pt states she had two heart attacks, and is now Father Family Medical History: Unable to Obtain Additional Family Medical History / Comment(s): Pt did not know her father-she was raised by mother and stepfather. General Exam - General Exam Comments Initial Comments: GENERAL: Patient is well-developed and well-nourished. Patient is nontoxic and well- hydrated and is in mild distress. ENT: Neck is soft and supple. No significant lymphadenopathy is noted. Oropharynx is clear. Moist mucous membranes. Neck has full range of motion without eliciting any pain. EYES: The sclera were anicteric and conjunctiva were pink and moist. Extraocular movements were intact and pupils were equal round and reactive to light. Eyelids were unremarkable. PULMONARY: Unlabored respirations. Good breath sounds bilaterally. No audible rales r honchi or wheezing was noted. CARDIOVASCULAR: There is a regular rate and rhythm without any murmurs gallops or rubs. ABDOMEN: Soft and nontender with normal bowel sounds. SKIN: Skin is clear with no lesions or rashes and otherwise unremarkable. NEUROLOGIC: Patient is alert and oriented x3. Cranial nerves II through XII are grossly intact. There is weakness to the plantar and dorsiflexion as well as weakness trying to lift the leg off the bed. Normal speech, volume and content. Symmet rical smile. MUSCULOSKELETAL: No lower extremity swelling or edema. No calf tenderness. LYMPHATICS: No significant lymphadenopathy is noted PSYCHIATRIC: Normal psychiatric evaluation. Limitations: no limitations Course Vital Signs 11/27/24 11/27/24 11/27/24 14:18 15:42 16:45 Temperature 97.9 F Pulse Rate 69 75 70 Respiratory 16 18 18 Rate Blood Pressure 186/116 198/115 149/95 O2 Sat by Pulse 100 99 99 Oximetry Medical Decision Making - Medical Decision Making EKG is interpreted by myself EKG shows a sinus rhythm at 62 bpm MT interval 147 QRS is 91 QT interval is 430 QTc is 434. Patient's EKG shows no ST segment elevation Was pt. sent in by a medical professional or institution (, PA, VOICE ENGINEER, urgent care, hospital, or halfway...) When possible be specific @ -No Did you speak to anyone other than the patient for history (EMS, parent, family, police, friend...)? What history was obtained from this source @ -No Did you review nursing and triage notes (agree or disagree)? Why? @ -I reviewed and agree with nursing and triage notes Were old charts reviewed (outside hosp., previous admission, EMS record, old EKG, old radiological studies, urgent care reports/EKG's, halfway records)? Report findings @ -No old charts were reviewed Differential Diagnosis? @ -Differential CVA Ischemic stroke, hemorrhagic stroke, brain tumor, atypical migraine, Wernicke's encephalopathy, seizure, multiple sclerosis, meningitis, encephalitis, hypoglycemia, Guillain-Mejia, electrolytes disturbance, myasthenia gravis.... This is not meant to be an all-inclusive list EKG interpreted by me (3pts min.). @ -As above X-rays interpreted by me (1pt min.). @ -Chest x-ray shows no acute abnormality CT interpreted by me (1pt min.). @ -CT of the brain and CT of the angiogram of the head and neck shows no acute abnormality U/S interpreted by me (1pt. min.). @ -None done What testing was considered but not performed or refused? (CT, X-rays, U/S, labs)? Why? @ -None What meds were considered but not given or refused? Why? @ -None Did you discuss the management of the patient with other professionals (professionals i.e. , PA, VOICE ENGINEER, lab, RT, psych nurse, web content & social media manager, acid adjuster, teacher, loan servicing officer, case resolution specialist)? Give summary @ -I spoke with Dr. Grant he agreed to admit the patient Was smoking cessation discussed for >3mins.? @ -No Was critical care preformed (if so, how long)? @ -No Were there social determinants of health that impacted care today? How? (Homelessness, low income, unemployed, alcoholism, drug addiction, transp ortation, low edu. Level, literacy, decrease access to med. care, mcc, rehab)? @ -No Was there de-escalation of care discussed even if they declined (Discuss DNR or withdrawal of care, Hospice)? DNR status @ -No What co-morbidities impacted this encounter? (DM, HTN, Smoking, COPD, CAD, Cancer, CVA, ARF, Chemo, Hep., AIDS, mental health diagnosis, sleep apnea, morbid obesity)? @ -None Was patient admitted / discharged? Hospital course, mention meds given and route, prescriptions, significant lab abnormalities, going to OR and other pertinent info. @ -I reevaluated the patient after labs and CTs were done patient continues to have weakness in the left foot and leg. Patient will be admitted to Dr. Grant and I will consult the neurologist and they wrote admitting orders Undiagnosed new problem with uncertain prognosis? @ -No Drug Therapy requiring intensive monitoring for toxicity (Heparin, Nitro, Insulin, Cardizem)? @ -No Were any procedures done? @ -No Diagnosis/symptom? @ -CVA Acute, or Chronic, or Acute on Chronic? @ -Acute Uncomplicated (without systemic symptoms) or Complicated (systemic symptoms)? @ -Default Side effects of treatment? @ -No Exacerbation, Progression, or Severe Exacerbation? @ -No Poses a threat to life or bodily function? How? (Chest pain, [place], [place], pneumonia, PE, COPD, DKA, ARF, appy, cholecystitis, CVA, Diverticulitis, Homicidal, Suicidal, threat to staff... and all critical care pts) @ -Yes this could lead to further strokelike symptoms and significant morbidity - Lab Data Result diagrams: 11/27/24 14:54 11/27/24 14:54 Lab Results 11/27/24 11/27/24 11/27/24 Range/Units 14:54 14:54 14:54 WBC 5.09 (4.50-10.00) 10*3/uL RBC 4.09 L (4.10-5.20) 10*6/uL Hgb 13.1 (12.0-15.0) g/dL Hct 38.7 (37.2-46.3) % MCV 94.6 (80.0-97.0) fL MCH 32.0 (27.0-32.0) pg MCHC 33.9 (32.0-37.0) g/dL Plt Count 203 (140-440) 10*3/uL MPV 10.1 (9.5-12.2) fL Immature Gran % (Auto) 0 % Neutrophils % 60.9 % Lymphocytes % 33.6 % Monocytes % 4.9 % Eosinophils % 0.2 % Basophils % 0.4 % Immature Gran # 0.00 (0.00-0.04) 10*3/uL Neutrophils # 3.10 (1.80-7.70) 10*3/uL Lymphocytes # 1.71 (0.90-5.00) 10*3/uL Monocytes # 0.25 (0.20-1.00) 10*3/uL Eosinophils # 0.01 L (0.04-0.35) 10*3/uL Basophils # 0.02 (0.00-0.10) 10*3/uL PT 10.5 (10.0-12.5) sec INR 0.9 (<1.2) APTT 22.7 (22.0-30.0) sec Sodium 140 (137-145) mmol/L Potassium 3.7 (3.5-5.1) mmol/L Chloride 106 (98-107) mmol/L Carbon Dioxide 22 (22-30) mmol/L Anion Gap 12 mmol/L BUN 11 (7-17) mg/dL Creatinine 0.93 (0.52-1.04) mg/dL Est GFR (CKD-EPI)AfAm 81 (>60 ml/min/1.73 sqM) Est GFR (CKD-EPI)NonAf 70 (>60 ml/min/1.73 sqM) Glucose 93 (74-99) mg/dL Calcium 10.3 H (8.4-10.2) mg/dL Total Bilirubin 0.5 (0.2-1.3) mg/dL AST 33 (14-36) U/L ALT 29 (4-34) U/L Alkaline Phosphatase 90 (38-126) U/L Creatine Kinase 51 (30-135) U/L Troponin I (0.000-0.034) ng/mL Total Protein 7.6 (6.3-8.2) g/dL Albumin 4.6 (3.5-5.0) g/dL 11/27/24 Range/Units 14:54 WBC (4.50-10.00) 10*3/uL RBC (4.10-5.20) 10*6/uL Hgb (12.0-15.0) g/dL Hct (37.2-46.3) % MCV (80.0-97.0) fL MCH (27.0-32.0) pg MCHC (32.0-37.0) g/dL Plt Count (140-440) 10*3/uL MPV (9.5-12.2) fL Immature Gran % (Auto) % Neutrophils % % Lymphocytes % % Monocytes % % Eosinophils % % Basophils % % Immature Gran # (0.00-0.04) 10*3/uL Neutrophils # (1.80-7.70) 10*3/uL Lymphocytes # (0.90-5.00) 10*3/uL Monocytes # (0.20-1.00) 10*3/uL Eosinophils # (0.04-0.35) 10*3/uL Basophils # (0.00-0.10) 10*3/uL PT (10.0-12.5) sec INR (<1.2) APTT (22.0-30.0) sec Sodium (137-145) mmol/L Potassium (3.5-5.1) mmol/L Chloride (98-107) mmol/L Carbon Dioxide (22-30) mmol/L Anion Gap mmol/L BUN (7-17) mg/dL Creatinine (0.52-1.04) mg/dL Est GFR (CKD-EPI)AfAm (>60 ml/min/1.73 sqM) Est GFR (CKD-EPI)NonAf (>60 ml/min/1.73 sqM) Glucose (74-99) mg/dL Calcium (8.4-10.2) mg/dL Total Bilirubin (0.2-1.3) mg/dL AST (14-36) U/L ALT (4-34) U/L Alkaline Phosphatase (38-126) U/L Creatine Kinase (30-135) U/L Troponin I <0.012 (0.000-0.034) ng/mL Total Protein (6.3-8.2) g/dL Albumin (3.5-5.0) g/dL Disposition Clinical Impression: Cerebrovascular accident (CVA) Disposition: ADMITTED IP TO THIS [facility] Referrals: Young Palmer MD [Primary Care Provider] - 1-2 days Time of Disposition: 17:25
[2024-11-27 15:18] LABS: INR 0.9 (<1.2); Partial Thromboplastin Time 22.7 sec (22.0-30.0); Prothrombin Time 10.5 sec (10.0-12.5)
[2024-11-27 15:24] LABS: ALT 29 U/L (4-34); AST 33 U/L (14-36); African American GFR (CKD) 81 (>60 ml/min/1.73 sqM); Albumin 4.6 g/dL (3.5-5.0); Alkaline Phosphatase 90 U/L (38-126); Anion Gap 12 mmol/L; Blood Urea Nitrogen 11 mg/dL (7-17); Calcium 10.3 mg/dL (8.4-10.2); Carbon Dioxide 22 mmol/L (22-30); Chloride 106 mmol/L (98-107); Creatine Kinase 51 U/L (30-135); Glucose 93 mg/dL (74-99); Non-African American GFR(CKD) 70 (>60 ml/min/1.73 sqM); Potassium 3.7 mmol/L (3.5-5.1); Sodium 140 mmol/L (137-145); Total Bilirubin 0.5 mg/dL (0.2-1.3); Total Protein 7.6 g/dL (6.3-8.2)
--- NOTE | 2024-11-27 15:25 | CT ---
EXAMINATION TYPE: CT brain wo con DATE OF EXAM: 11/27/2024 COMPARISON: 11/17/2019 CLINICAL INDICATION: Female, 54 years old with history of Neuro deficit, acute, stroke suspected; PHH , Code stroke. Hx of mini strokes and epilepsy. Numbness in left arm and left leg. SILVERMAN, Hypotension. CT DLP: 1102.6 mGycm Automated exposure control for dose reduction was used. Findings: The ventricles, basal cisterns and sulci over the convexities are within normal limits and there is n o mass effect or shift of midline structures. No abnormal density is seen throughout the brain parenchyma and there is no acute intra or extra-axia l hemorrhage. The posterior fossa including the brainstem, fourth ventricle and cerebellar pontine angles appear no rmal. Intraorbital contents appear normal and symmetric. Visualized paranasal sinuses and mastoid air cells are well aerated. The calvarium is intact. IMPRESSION: No significant abnormality seen. There is no acute bleed or mass effect. [facility], Workstation: [email or web address] 11/27/2024 3:23 PM
--- NOTE | 2024-11-27 15:43 | CT ---
EXAMINATION TYPE: CT angio head neck DATE OF EXAM: 11/27/2024 COMPARISON: CLINICAL INDICATION: Female, 54 years old with history of Neuro deficit, acute, stroke suspected; PHH , Code stroke. Hx of mini strokes and epilepsy. Numbness in left arm and left leg. SILVERMAN, Hypertension TECHNIQUE: CTA scan of the head and neck is performed with IV Contrast, patient injected with 65ml m L of Isovue 370, axial images are obtained, coronal and sagittal reformatted images are reviewed. 3D reconstructed images are created on an independent workstation and reviewed. CT DLP: 361.[address] CTDI: mGy Automated exposure control for dose reduction was used. NASCET criteria was used in interpretation of this exam? FINDINGS: FINDINGS: The brachiocephalic origins are widely patent and no significant stenosis. There is no significant stenosis of the common or internal carotid arteries within the neck. There is no stenosis of the vertebral arteries. Intracranially, there is no stenosis, segmental occlusion, sizable aneurysm sac or vascular malformat ion. IMPRESSION:. No significant abnormality seen. NASCET criteria was used in interpretation of this exam? [facility], , 11/27/2024 3:41 PM
[2024-11-27] MEDS: SODIUM CHLORIDE 0.9% 500 ML 500 ML IV STA (15:53)
[2024-11-27] MEDS: LABETALOL 5 MG/ML VIAL MDV IVP STA (15:55)
[2024-11-27] MEDS ORDERED: clonazePAM 0.5 MG TAB PO PRN (21:03)
[2024-11-27] MEDS ORDERED: Acetaminophen-Codeine 300-30mg TAB PO PRN (21:03)
[2024-11-27] MEDS: ETHOSUXIMIDE 250 MG PO SCH (21:18)
[2024-11-27] MEDS: TRANDOLAPRIL PO SCH (21:18)
[2024-11-27] MEDS: VERAPAMIL HCL PO SCH (21:18)
[2024-11-27] MEDS: [UNRECOGNIZED DRUG - OTHER] PO SCH (21:18)
[2024-11-27] MEDS: acetaZOLAMIDE 250 MG TAB PO SCH (21:24)
[2024-11-27] MEDS: ENOXAPARIN 40 MG/0.4 ML SYRINGE SQ SCH (21:24)
[2024-11-27] MEDS: diphenhydrAMINE 50 MG CAP PO SCH (21:24)
[2024-11-27] MEDS: lisinopriL 20 MG TAB PO SCH (21:25)
[2024-11-27] MEDS: VERAPAMIL SR 240 MG TABLET.ER PO SCH (21:26)
--- NOTE | 2024-11-27 22:48 | P.HPIM ---
History of Present Illness H&P Date: 11/27/24 Chief Complaint: Left-sided neurological symptoms very pleasant 54-year-old patient of Dr. Palmer. Chronic medical conditions include hypertension, diverticulosis, migraines,. negative cardiac catheterization in 2011. Patient does follow with the neurologist from [facility] called . has a diagnosis of absence and grand mal seizures. She's had trouble taking antiseizure medications in the past. Today after patient doing her normal shows when to do her treadmill. She felt as if the left calf and left ankle is giving out. The both arms became very tingly and shaky. Whole left side became very tingly. Also had a headache. She normally does that sometimes gets stuttering of her speech. No change in vision. She was awake the whole time. Symptoms lasted for good 4 hours. Patient also is rather active. Review of systems: GEN.: None EYES: None HEENT: None NECK: None RESPIRATORY: None CARDIOVASCULAR: None GASTROINTESTINAL: None GENITOURINARY: None MUSCULOSKELETAL: None LYMPHATICS: None HEMATOLOGICAL: None PSYCHIATRY: Slightly anxious NEUROLOGICAL: As above Past medical history to include: Hypertension, grand mal/absence seizures, diverticulosis, migraine Social history: . No history of smoking and alcohol. Physical examination: VITAL SIGNS: 97.9, 59, 16, 158 x 93, 100% room air GENERAL: Laying in bed. Awake slightly anxious. EYES: Pupils equal. Conjunctiva normal. NECK: JVD not raised; masses not palpable. HEART: First and second heart sounds are normal; no edema. LUNGS: Respiratory rate normal; clear to auscultation. CHEST wall: Some reproducible pain in the lower sternum and in the medial part of the rib cage ABDOMEN: Soft, nontender, liver spleen not palpable, no masses palpable. PSYCH: Alert and oriented x3; mood and affect appeared anxious. NEUROLOGICAL: Cranial nerves grossly intact; no facial asymmetry, power and sensation grossly intact. LYMPHATICS: No lymph nodes palpable in the axilla and neck INVESTIGATIONS, reviewed in the clinical context: November 27, 2024: White count 5 hemoglobin 13.1 platelets 2 3 sodium 140 potassium 3.7 creatinine 0.93 Troponin I less than 0.012 EKG tracing personally reviewed by me-some ST depression in inferolateral leads Chest x-ray film personally reviewed by me-some hyperinflation CT brain: Unremarkable CT angio head and neck unremarkable Assessment and plan: - Episode of patient having left calf left ankle tingling. Both hands were s haking. Left-sided body tingling. Some headache. Lasted about 4 hours. Given that the symptoms were not unilateral would consider this may be complex migraine. Though this was unlike her typical migraine. Could be an element of anxiety. Will need to rule out a central cause. Patient already has known seizures hence EEG will be of no benefit. Patient did not lose her consciousness at any point during this episode. She did also call her neurologist at [facility] for this. MRI of the brain with and without contrast Consult neurology -Anterior chest wall pain with some reproducibility. Likely costochondritis -Tonic-clonic and absence seizures. Follows at [facility] - Chronic migraines about 3 episodes a month. -GERD Omeprazole 20 mg daily -Essential hypertension trandolapril/verapamil/250 one tablet daily at bedtime -Chronic, colonic diverticulosis Asymptomatic Discussed with patient Past Medical History Past Medical History: CVA/TIA, Hypertension, Pneumonia, Seizure Disorder Additional Past Medical History / Comment(s): Questionable history of mini strokes/TIA, frequent PVCs, gastritis and diverticulosis,small hiatal hernia, migraines, sinus problems, hx of siezures since age 8 yrs and last siezure was 01/16/21. History of Any Multi-Drug Resistant Organisms: None Reported Past Surgical History: Heart Catheterization, Hysterectomy Additional Past Surgical History / Comment(s): Pt had normal cardiac cath in 2011, upper and lower endoscopies Apr 2014 which showed diverticulosis and gastitis and small hiatal hernia Past Anesthesia/Blood Transfusion Reactions: Motion Sickness, Postoperative Nausea & Vomiting (PONV) Past Psychological History: No Psychological Hx Reported Smoking Status: Never smoker Past Alcohol Use History: None Reported Past Drug Use History: None Reported - Past Family History Mother Family Medical History: Hypertension, Myocardial Infarction (DC) Additional Family Medical History / Comment(s): Pt states she had two heart attacks, and is now Father Family Medical History: Unable to Obtain Additional Family Medical History / Comment(s): Pt did not know her father-she was raised by mother and stepfather. Medications and Allergies Home Medications Medication Instructions Recorded Confirmed Type Ethosuximide [Zarontin] 250 mg PO BID 04/19/14 11/27/24 History Butalb/Acetaminophen/Caffeine 1 cap PO Q4H PRN 07/17/16 11/27/24 History [Fioricet 50-300-40 mg Capsule] diphenhydrAMINE HCL [Benadryl] 50 mg PO HS 07/17/16 11/27/24 History clonazePAM [KlonoPIN] 0.5 mg PO BID PRN 01/03/18 11/27/24 History Trandolapril/Verapamil HCl 1 tab PO HS 11/17/19 11/27/24 History [Trandolapr-Verapam ER 4-240 mg] Aspirin EC [Ecotrin Low Dose] 81 mg PO DAILY 12/14/20 11/27/24 History Cholecalciferol [Vitamin D3 (25 25 mcg PO HS 12/14/20 11/27/24 History Mcg = 1000 Iu)] Ondansetron Odt [Zofran ODT] 4 mg PO Q6H PRN 12/14/20 11/27/24 History Acetaminophen-Codeine 300-30mg 1 tab PO Q4-6H PRN 11/27/24 11/27/24 History [Tylenol w/codeine #3] Ascorbic Acid [Vitamin C] 500 mg PO DAILY 11/27/24 11/27/24 History Calcium Carbonate [Calcium] 600 mg PO BID 11/27/24 11/27/24 History Cyanocobalamin (Vitamin B-12) 2,500 mcg PO DAILY 11/27/24 11/27/24 History [Vitamin B-12] Fluticasone Nasal [place] [Flonase 2 spray EA NOSTRIL DAILY PRN 11/27/24 11/27/24 History Nasal [place]] Magnesium 200 mg PO HS 11/27/24 11/27/24 History [place]-3 Fish Oil 1,400mg 1,400 mg PO HS 11/27/24 11/27/24 History Pantoprazole [Protonix] 40 mg PO DAILY 11/27/24 11/27/24 History Pyridoxine HCl (Vitamin B6) 100 mg PO DAILY 11/27/24 11/27/24 History [Vitamin B-6] acetaZOLAMIDE [Diamox] 250 mg PO BID 11/27/24 11/27/24 History Allergies Allergy/AdvReac Type Severity Reaction Status Date / Time erythromycin base Allergy Rash/Hives Verified 11/27/24 16:31 [Erythromycin Base] on chest erythromycin lactobionate Allergy Rash/Hives Verified 11/27/24 16:31 [From Erythrocin] on chest Tetracyclines Allergy Rash/Hives Verified 11/27/24 16:31 amoxicillin [Amoxicillin] AdvReac Headache/Na Verified 11/27/24 16:31 usea Penicillins AdvReac HEADACHES, Verified 11/27/24 16:31 MUSCLE SPASMS Physical Exam Vitals: Vital Signs Temp Pulse Resp BP Pulse Ox 11/27/24 21:28 59 L 16 158/93 100 11/27/24 19:11 98.2 F 64 16 144/82 99 11/27/24 16:45 70 18 149/95 99 11/27/24 15:42 75 18 198/115 99 11/27/24 14:18 97.9 F 69 16 186/116 100 Intake and Output 11/27/24 11/27/24 11/27/24 06:59 14:59 22:59 Other: Weight 53.524 kg Results CBC & Chem 7: 11/27/24 14:54 11/27/24 14:54 Labs: Abnormal Lab Results - Last 24 Hours (Table) 11/27/24 11/27/24 Range/Units 14:54 14:54 RBC 4.09 L (4.10-5.20) 10*6/uL Eosinophils # 0.01 L (0.04-0.35) 10*3/uL Calcium 10.3 H (8.4-10.2) mg/dL
[2024-11-27 23:27] VITALS: TEMP 97.6
[2024-11-28] MEDS: ONDANSETRON ODT 4 MG TAB PO PRN (00:15)
[2024-11-28] MEDS: TRANDOLAPRIL PO SCH (00:40)
[2024-11-28] MEDS: VERAPAMIL PO SCH (00:40)
[2024-11-28] MEDS: PANTOPRAZOLE 40 MG TABLET PO SCH (06:18)
[2024-11-28] MEDS: PYRIDOXINE 50 MG TAB PO SCH (08:38)
[2024-11-28] MEDS: CYANOCOBALAMIN 500 MCG TAB PO SCH (08:38)
[2024-11-28] MEDS: ASCORBIC ACID 500 MG TAB PO SCH (08:38)
[2024-11-28] MEDS: CALCIUM CARBONATE 500 MG CHEWABLE PO SCH (08:38)
[2024-11-28] MEDS: ASPIRIN 81 MG PO SCH (08:38)
[2024-11-28] MEDS: BUTALB/APAP/CAFF 50-325-40MG TAB PO PRN (09:14)
[2024-11-28 10:58] LABS: Chol/HDL Ratio 2.74 Ratio; LDL Cholesterol,Calculated 130.8 mg/dL (0.0-131.0); VLDL Calculation 16.02 mg/dL (5.00-40.00)
[2024-11-28] MEDS: ETHOSUXIMIDE 250 MG PO SCH (11:02)
[2024-11-28 13:56] VITALS: PULSE 61; RESP 18
[2024-11-28 16:11] VITALS: BP 157/105
--- NOTE | 2024-11-28 18:53 | P.PN ---
Progress Note - Text Progress Note Date: 11/28/24 Came to see patient on the floor, but she has already signed out AGAINST MEDICAL ADVICE and left floor.
[2024-11-28] MEDS ORDERED: CHOLECALCIFEROL 25 MCG (1000 IU) TABLET PO SCH (21:00)
[2024-11-28] MEDS ORDERED: ATORVASTATIN 20 MG TAB PO SCH (21:00)
== END 2024-11-28 18:35 | disposition left against medical advice (07) | DRG 103 ==
LOC: EC 14:14 → 3SCARD 17:28
PROVIDERS: ADMIT Hospitalist; ATTEND Hospitalist
DX: G43.909 Migraine, unspecified, not intractable, without status migrainosus (principal); G40.409 Other generalized epilepsy and epileptic syndromes, not intractable, without status epilepticus; I10 Essential (primary) hypertension; G40.A09 Absence epileptic syndrome, not intractable, without status epilepticus; M94.0 Chondrocostal junction syndrome [Tietze]; F41.9 Anxiety disorder, unspecified; K21.9 Gastro-esophageal reflux disease without esophagitis; K57.30 Diverticulosis of large intestine without perforation or abscess without bleeding; Z79.82 Long term (current) use of aspirin; Z79.899 Other long term (current) drug therapy; Z86.73 Personal history of transient ischemic attack (TIA), and cerebral infarction without residual deficits; Z98.61 Coronary angioplasty status
CPT/HCPCS: 36415; 70450; 70496; 70498; 71046; 80053; 80061; 82550; 84484; 85025; 85610; 85730; 93005; 96361; 96372; 96374; 99285